=== PATIENT | male | born 1955 | race Caucasian/White ===

== ENCOUNTER 2017-08-23 23:28 | Observation (INO) | payer BC ==
[2017-08-23] MEDS ORDERED: ALBUTEROL NEBULIZED 2.5 MG/3 ML INHALATION STA (23:57)
[2017-08-23] MEDS ORDERED: SODIUM CHLORIDE 0.9% 1,000 ML IV STA (23:57)
--- NOTE | 2017-08-24 00:13 | ED ---
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 Hurts when he takes a deep breath he is ex-smoker quit smoking 12 years ago pretty active and healthy. Eyes any headaches no neck stiffness has shortness of breath no abdominal pain no frequency urgency dysuria no symptoms of TIA or CVA - Related Data Allergies Allergy/AdvReac Type Severity Reaction Status Date / Time No Known Allergies Allergy Verified 08/23/17 23:39 Review of Systems ROS Statement: Those systems with pertinent positive or pertinent negative responses have been documented in the HPI. ROS Other: All systems not noted in ROS Statement are negative. Past Medical History Past Medical History: No Reported History History of Any Multi-Drug Resistant Organisms: None Reported Past Surgical History: No Surgical Hx Reported Past Psychological History: No Psychological Hx Reported Smoking Status: Never smoker Past Alcohol Use History: Occasional Past Drug Use History: Marijuana General Exam - General Exam Comments Initial Comments: General: The patient is awake and alert, in no distress, and does not appear acutely ill. Skin: Skin is warm and dry and no rashes or lesions are noted. Eye: Pupils are equal, round and reactive to light, extra-ocular movements are intact; there is normal conjunctiva bilaterally. Ears, nose, mouth and throat: Noticed some erythema in the oropharynx Neck: The neck is supple, there is no tenderness o Cardiovascular: There is a regular rate and rhythm. No murmur, rub or gallop is appreciated. Respiratory: To auscultation bilateral, noticed some secretions in the right lower lobe Gastrointestinal: Soft, non-distended, non-tender abdomen without masses or organomegaly noted. There is no rebound or guarding present. Bowel sounds are unremarkable. Back: There is no tenderness to palpation in the midline. There is no obvious deformity. Musculoskeletal: Normal ROM, no tenderness, There is no pedal edema. There is no calf tenderness or swelling. No cords were appreciated. Neurological: CN II-XII intact, Cranial nerves III through XII are intact. There are no obvious motor or sensory deficits. Coordination appears grossly intact. Speech is normal. Psychiatric: Cooperative, appropriate mood & affect, normal judgment. Limitations: no limitations Course Vital Signs 08/23/17 08/24/17 23:39 00:31 Temperature 97.3 F L Pulse Rate 81 76 Respiratory 20 Rate Blood Pressure 148/85 O2 Sat by Pulse 95 Oximetry EKG is normal sinus rhythm ventricular rate is 83 WI interval is 162 QRS duration is 148 QT/QTC 392/460 did notice a left bundle branch block I don't have any old EKG to compare with, she was reassessed at 1 AM, chest x-ray is compatible with a pneumonia noticed his O2 sat didn't cranial low and I am EKG has left bundle branch block I don't know if is new or if this is an old be getting repeat his vitals and afebrile his O2 sat is low and then we'll admit him for the IV antibiotics and now consult cardiology, noticed that his O2 sat is low at rest, is 91 considering left bundle branch block and hypoxia and pneumonia and COPD and can admit him and will consult cardiology he be admitted to Dr. Mccullough's service Medical Decision Making - Lab Data Result diagrams: 08/24/17 00:20 08/24/17 00:20 Lab Results 08/24/17 08/24/17 08/24/17 Range/Units 00:20 00:20 00:20 WBC 4.1 (3.8-10.6) k/uL RBC 5.50 (4.30-5.90) m/uL Hgb 17.0 (13.0-17.5) gm/dL Hct 48.9 (39.0-53.0) % MCV 88.9 (80.0-100.0) fL MCH 30.9 (25.0-35.0) pg MCHC 34.7 (31.0-37.0) g/dL RDW 13.7 (11.5-15.5) % Plt Count 168 (150-450) k/uL Neutrophils % 50 % Lymphocytes % 39 % Monocytes % 6 % Eosinophils % 2 % Basophils % 1 % Neutrophils # 2.0 (1.3-7.7) k/uL Lymphocytes # 1.6 (1.0-4.8) k/uL Monocytes # 0.3 (0-1.0) k/uL Eosinophils # 0.1 (0-0.7) k/uL Basophils # 0.0 (0-0.2) k/uL PT (9.0-12.0) sec INR (<1.2) APTT (22.0-30.0) sec D-Dimer (<0.60) mg/L FEU Sodium 140 (137-145) mmol/L Potassium 4.0 (3.5-5.1) mmol/L Chloride 107 (98-107) mmol/L Carbon Dioxide 23 (22-30) mmol/L Anion Gap 10 mmol/L BUN 22 H (9-20) mg/dL Creatinine 0.90 (0.66-1.25) mg/dL Est GFR (CKD-EPI)AfAm >90 (>60 ml/min/1.73 sqM) Est GFR (CKD-EPI)NonAf >90 (>60 ml/min/1.73 sqM) Glucose 142 H (74-99) mg/dL Calcium 9.2 (8.4-10.2) mg/dL Total Bilirubin 0.5 (0.2-1.3) mg/dL AST 28 (17-59) U/L ALT 31 (21-72) U/L Alkaline Phosphatase 71 (38-126) U/L Total Creatine Kinase 280 H (55-170) U/L Total Protein 6.6 (6.3-8.2) g/dL Albumin 4.0 (3.5-5.0) g/dL 08/24/17 Range/Units 00:20 WBC (3.8-10.6) k/uL RBC (4.30-5.90) m/uL Hgb (13.0-17.5) gm/dL Hct (39.0-53.0) % MCV (80.0-100.0) fL MCH (25.0-35.0) pg MCHC (31.0-37.0) g/dL RDW (11.5-15.5) % Plt Count (150-450) k/uL Neutrophils % % Lymphocytes % % Monocytes % % Eosinophils % % Basophils % % Neutrophils # (1.3-7.7) k/uL Lymphocytes # (1.0-4.8) k/uL Monocytes # (0-1.0) k/uL Eosinophils # (0-0.7) k/uL Basophils # (0-0.2) k/uL PT 10.3 (9.0-12.0) sec INR 1.1 (<1.2) APTT 23.1 (22.0-30.0) sec D-Dimer 0.39 (<0.60) mg/L FEU Sodium (137-145) mmol/L Potassium (3.5-5.1) mmol/L Chloride (98-107) mmol/L Carbon Dioxide (22-30) mmol/L Anion Gap mmol/L BUN (9-20) mg/dL Creatinine (0.66-1.25) mg/dL Est GFR (CKD-EPI)AfAm (>60 ml/min/1.73 sqM) Est GFR (CKD-EPI)NonAf (>60 ml/min/1.73 sqM) Glucose (74-99) mg/dL Calcium (8.4-10.2) mg/dL Total Bilirubin (0.2-1.3) mg/dL AST (17-59) U/L ALT (21-72) U/L Alkaline Phosphatase (38-126) U/L Total Creatine Kinase (55-170) U/L Total Protein (6.3-8.2) g/dL Albumin (3.5-5.0) g/dL Disposition Clinical Impression: Hemoptysis, Dyspnea, Left bundle branch block, Pneumonia Disposition: ADMITTED IP TO THIS [facility] Referrals: Huseyin Amato MD [Primary Care Provider] - 1-2 days
[2017-08-24 00:28] LABS: Basophils % (A) 1 %; Eosinophils # (A) 0.1 k/uL (0-0.7); Eosinophils % (A) 2 %; HCT 48.9 % (39.0-53.0); Lymphocytes # (A) 1.6 k/uL (1.0-4.8); Lymphocytes % (A) 39 %; MCH 30.9 pg (25.0-35.0); MCHC 34.7 g/dL (31.0-37.0); MCV 88.9 fL (80.0-100.0); Mean Platelet Volume 6.8; Monocytes # (A) 0.3 k/uL (0-1.0); Monocytes % (A) 6 %; Neutrophils % (A) 50 %; Platelet Count 168 k/uL (150-450); RDW 13.7 % (11.5-15.5); WBC 4.1 k/uL (3.8-10.6)
--- NOTE | 2017-08-24 00:33 | XR ---
EXAMINATION TYPE: XR chest 2V DATE OF EXAM: 08/24/2017 COMPARISON: 04/25/2011 HISTORY: Difficulty breathing TECHNIQUE: Frontal and lateral views of the chest are obtained. FINDINGS: Heart and mediastinum are normal. . Diaphragm is normal. Bony thorax is normal. There is slight increased density overall in the right midlung field compared to the left. I think th is is related to some pneumonia in the right upper lobe anterior segment. There are chest leads. IMPRESSION: There is evidence for a mild diffuse pneumonia in the right upper lobe that is new nash red to old exam.
[2017-08-24 00:37] LABS: ALT 31 U/L (21-72); AST 28 U/L (17-59); Alkaline Phosphatase 71 U/L (38-126); Anion Gap 10 mmol/L; Blood Urea Nitrogen 22 mg/dL (9-20); Calcium 9.2 mg/dL (8.4-10.2); Carbon Dioxide 23 mmol/L (22-30); Chloride 107 mmol/L (98-107); Glucose 142 mg/dL (74-99); Sodium 140 mmol/L (137-145); Total Bilirubin 0.5 mg/dL (0.2-1.3); Total Protein 6.6 g/dL (6.3-8.2)
[2017-08-24 00:38] LABS: D-Dimer 0.39 mg/L FEU (<0.60)
[2017-08-24 00:40] LABS: Creatine Kinase 280 U/L (55-170)
[2017-08-24 00:42] LABS: INR 1.1 (<1.2); Partial Thromboplastin Time 23.1 sec (22.0-30.0); Prothrombin Time 10.3 sec (9.0-12.0)
[2017-08-24] MEDS ORDERED: AZITHROMYCIN 500 MG TAB PO STA (00:52)
[2017-08-24 00:53] LABS: Troponin I <0.012 ng/mL (0.000-0.034)
[2017-08-24 00:56] LABS: Creatine Kinase MB 2.6 ng/mL (0.0-2.4)
[2017-08-24] MEDS ORDERED: cefTRIAXone IN SWFI 2,000 MG/20 ML SYRINGE IVP ONE (01:15)
[2017-08-24] MEDS ORDERED: MORPHINE SULFATE 2 MG/ML SYRINGE IVP PRN (01:37)
[2017-08-24] MEDS ORDERED: NITROGLYCERIN SL TABS 0.4 MG TAB SUBLINGUAL PRN (01:37)
[2017-08-24 03:12] VITALS: BMI 26.0
[2017-08-24 06:35] LABS: Glucose,Whole Blood 119 mg/dL (75-99)
[2017-08-24 07:47] LABS: Creatine Kinase 174 U/L (55-170)
[2017-08-24 08:00] LABS: Creatine Kinase MB 1.8 ng/mL (0.0-2.4); Troponin I <0.012 ng/mL (0.000-0.034)
[2017-08-24 12:01] LABS: Glucose,Whole Blood 129 mg/dL (75-99)
[2017-08-24] MEDS ORDERED: ALPRAZolam 0.25 MG TAB PO PRN (12:49)
[2017-08-24] MEDS ORDERED: SODIUM CHLORIDE 0.9% 1,000 ML in EMPTY BAG 1 BAG IV ONE (12:49)
[2017-08-24] MEDS ORDERED: ALPRAZolam 0.5 MG TAB PO PRN (12:49)
--- NOTE | 2017-08-24 12:58 | P.CRDCN ---
History of Present Illness Consult date: 08/24/17 History of present illness: Mr. Haines is a pleasant 61-year-old male past medical history significant for diabetes mellitus, hypertension and dyslipidemia. He recently started seeing Dr. Funes 2 weeks ago for symptoms of palpitations and an abnormal EKG. He has a left bundle branch pattern that seems to be new in the last month. Although he states he has never had an EKG before that time. We have been asked to see him in consultation for complaints of dyspnea on exertion yesterday. He states after work he was playing basketball and he started feeling extremely short of breath. He denies symptoms of chest pain, dizziness, palpitations, nausea, vomiting or diaphoresis. The shortness of breath persisted until he came to the hospital and was given a breathing treatment. He denies any further symptoms of shortness of breath since admission. Telemetry tracings have been unremarkable. EKG reveals left bundle branch block. Chest xray reveals evidence of mild diffuse pneumonia in the right upper lobe. Laboratory data reviewed, hemoglobin 17, platelets 168, d-dimer 0.39, potassium 4.0, creatinine 0.9, cardiac enzymes negative 2. Current cardiac medications include simvastatin 80 mg daily, lisinopril 10 mg daily and aspirin 81 mg daily. Review of Systems At the time my exam: CONSTITUTIONAL: Denies fever. Denies chills. EYES: Denies blurred vision. Denies vision changes. Denies eye pain. EARS, NOSE, MOUTH & THROAT: Denies headache. Denies sore throat. Denies ear pain. CARDIOVASCULAR: Denies chest pain. Denies shortness of breath. Denies orthopnea. Denies PND. Denies palpitations. RESPIRATORY: Denies cough. GASTROINTESTINAL: Denies abdominal pain. Denies diarrhea. Denies constipation. Denies nausea. Denies vomiting. MUSCULOSKELETAL: Denies myalgias. INTEGUMENTARY: Denies pruitis. Denies rash. NEUROLOGIC: Denies numbness. Denies tingling. Denies weakness. PSYCHIATRIC: Denies anxiety. Denies depression. ENDOCRINE: Denies fatigue. Denies weight change. Denies polydipsia. Denies polyurina. GENITOURINARY: Denies burning, hematuria or urgency with micturation. HEMATOLOGIC: Denies history of anemia. Denies bleeding. Past Medical History Past Medical History: Diabetes Mellitus, Hyperlipidemia, Hypertension Additional Past Medical History / Comment(s): chronic neck pain with "head tremors" History of Any Multi-Drug Resistant Organisms: None Reported Past Surgical History: No Surgical Hx Reported Additional Past Surgical History / Comment(s): throat lesions from HPV removed, pilonidal cyst removed Past Anesthesia/Blood Transfusion Reactions: No Reported Reaction Past Psychological History: Anxiety Smoking Status: Never smoker Past Alcohol Use History: Occasional Past Drug Use History: Marijuana - Past Family History Father Family Medical History: Diabetes Mellitus Medications and Allergies Home Medications Medication Instructions Recorded Confirmed Type Aspirin [Adult Low Dose Aspirin EC] 81 mg PO DAILY 08/24/17 08/24/17 History Dapagliflozin Propanediol [Farxiga] 10 mg PO DAILY 08/24/17 08/24/17 History Ibuprofen [Motrin] 800 mg PO BID PRN 08/24/17 08/24/17 History Lisinopril [Zestril] 10 mg PO DAILY 08/24/17 08/24/17 History Multivitamin [Men's Multi-Vitamin] 1 tab PO DAILY 08/24/17 08/24/17 [address] [place]-3 Fatty Acids/Fish Oil [Fish 1 cap PO DAILY 08/24/17 08/24/17 History Oil 1,000 mg Softgel] Omeprazole [PriLOSEC] 20 mg PO AC-BRKFST PRN 08/24/17 08/24/17 History Simvastatin 80 mg PO DAILY 08/24/17 08/24/17 History glipiZIDE [Glucotrol] 10 mg PO DAILY 08/24/17 08/24/17 History metFORMIN HCL ER [Glucophage Xr] 500 mg PO BID 08/24/17 08/24/17 History Allergies Allergy/AdvReac Type Severity Reaction Status Date / Time liraglutide [From Victoza] AdvReac Nausea & Verified 08/24/17 03:38 Vomiting Physical Exam Vitals: Vital Signs Temp Pulse Pulse Resp BP BP Pulse Ox 08/24/17 07:51 97.9 F 83 16 94/47 96 08/24/17 03:43 76 16 08/24/17 03:37 97.6 F 88 16 112/63 94 L 08/24/17 00:52 75 08/24/17 00:31 76 08/23/17 23:39 97.3 F L 81 20 148/85 95 Intake and Output 08/23/17 08/24/17 08/24/17 22:59 06:59 14:59 Other: Voiding Method Toilet # Voids 2 Weight 84.8 kg Blood pressure 94/47 heart rate 83 afebrile maintaining oxygen saturation on room air GENERAL: This is a 61-year-old male in no apparent distress at the time of my examination. HEENT: Head is atraumatic, normocephalic. Pupils are equal, round. Sclerae anicteric. Conjunctivae are clear. Mucous membranes of the mouth are moist. Neck is supple. There is no jugular venous distention. No carotid bruit is heard. LUNGS: Clear to auscultation no wheezes, rales or rhonchi. No chest wall tenderness is noted on palpation or with deep breathing. HEART: Regular rate and rhythm with systolic ejection murmur at the base, no rubs or gallops. S1 and S2 heard. ABDOMEN: Soft, nontender. Bowel sounds are heard. No organomegaly noted. EXTREMITIES: No evidence of peripheral edema and no calf tenderness noted. VASCULAR: Radial and dorsalis pedis pulses palpated, no evidence of clubbing. NEUROLOGIC: Patient is awake, alert and oriented x3. Results 08/24/17 00:20 08/24/17 00:20 Cardiac Enzymes 08/24/17 08/24/17 Range/Units 00:20 00:20 AST 28 (17-59) U/L CK-MB (CK-2) 2.6 H* (0.0-2.4) ng/mL Troponin I <0.012 (0.000-0.034) ng/mL Coagulation 08/24/17 Range/Units 00:20 PT 10.3 (9.0-12.0) sec APTT 23.1 (22.0-30.0) sec CBC 08/24/17 Range/Units 00:20 WBC 4.1 (3.8-10.6) k/uL RBC 5.50 (4.30-5.90) m/uL Hgb 17.0 (13.0-17.5) gm/dL Hct 48.9 (39.0-53.0) % Plt Count 168 (150-450) k/uL Comprehensive Metabolic Panel 08/24/17 Range/Units 00:20 Sodium 140 (137-145) mmol/L Potassium 4.0 (3.5-5.1) mmol/L Chloride 107 (98-107) mmol/L Carbon Dioxide 23 (22-30) mmol/L BUN 22 H (9-20) mg/dL Creatinine 0.90 (0.66-1.25) mg/dL Glucose 142 H (74-99) mg/dL Calcium 9.2 (8.4-10.2) mg/dL AST 28 (17-59) U/L ALT 31 (21-72) U/L Alkaline Phosphatase 71 (38-126) U/L Total Protein 6.6 (6.3-8.2) g/dL Albumin 4.0 (3.5-5.0) g/dL Current Medications Generic Name Dose Route Start Last Admin Trade Name Freq PRN Reason Stop Dose Admin Aspirin 325 mg 08/25/17 09:00 Aspirin PO DAILY FLORENCE Ceftriaxone Sodium 2,000 mg 08/24/17 21:00 Rocephin IVP HS [place] Sodium Chloride 1,000 mls @ 100 mls/hr 08/23/17 23:57 08/24/17 00:17 Saline 0.9% IV 08/24/17 09:56 100 mls/hr .Q10H STA Administration Morphine Sulfate 2 mg 08/24/17 01:37 08/24/17 03:18 Morphine Sulfate (Inj) IVP 2 mg Q5M PRN Administration Chest Pain Nitroglycerin 0.4 mg 08/24/17 01:37 Nitrostat SUBLINGUAL Q5M PRN Chest Pain Intake and Output 08/23/17 08/24/17 08/24/17 22:59 06:59 14:59 Other: Voiding Method Toilet # Voids 2 Weight 84.8 kg 08/24/17 00:20 08/24/17 00:20 Assessment and Plan Assessment: ASSESSMENT 1. Dyspnea on exertion with improvement after breathing treatment 2. Palpitations, telemetry tracings have been unremarkable. 3. Hypertension 4. Dyslipidemia 5. Diabetes mellitus PLAN Check proBNP. Obtain 2D echocardiogram and doppler study to assess cardiac structure and function. Further recommendations to follow based on clinical course and diagnostic findings. Nurse Practitioner note has been reviewed, I agree with a documented findings and plan of care. Patient was seen and examined.
[2017-08-24 13:06] LABS: Creatine Kinase 161 U/L (55-170)
[2017-08-24 13:19] LABS: Creatine Kinase MB 1.6 ng/mL (0.0-2.4); Troponin I <0.012 ng/mL (0.000-0.034)
--- NOTE | 2017-08-24 13:19 | ECHOF ---
Referral Reason:sob MEASUREMENTS -------- HEIGHT: 182.9 cm WEIGHT: 84.4 kg BP: 112/63 IVSd: 1.0 cm (0.6 - 1.1) LVIDd: 4.4 cm (3.9 - 5.3) LVPWd: 1.3 cm (0.6 - 1.1) IVSs: 1.4 cm LVIDs: 3.3 cm LVPWs: 1.8 cm LAESV Index (A-L): 17.06 ml/m Ao Diam: 3.1 cm (2.0 - 3.7) AV Cusp: 2.2 cm (1.5 - 2.6) LA Diam: 3.1 cm (2.7 - 3.8) MV EXCURSION: 18.048 mm (> 18.000) MV EF SLOPE: 85 mm/s (70 - 150) EPSS: 1.7 cm MV E Cali: 0.70 m/s MV DecT: 190 ms MV A Cali: 0.93 m/s MV E/A Ratio: 0.75 RAP: 5.00 mmHg RVSP: 17.74 mmHg FINDINGS -------- BBB This was a technically good study. The left ventricular size is normal. There is borderline concentric left ventricular hypertrophy. Overall left ventricular systolic function is moderate-severely impaired with, an EF between 30 - 35 %. Septum is dyskinetic. There seemed to be hypokinesia of the anterior wall and also lateral wal l compared to the inferior wall, suggestive of ischemic cardiomyopathy The right ventricle is normal in size and function. The left atrium is normal in size. The right atrium is normal in size. The aortic valve is trileaflet, and appears structurally normal. No aortic stenosis or regurgitation. Mild mitral regurgitation is present. Mild tricuspid regurgitation present. The right ventricular systolic pressure, as measured by Doppl er, is 17.74mmHg. Pulmonic valve appears structurally normal. The aortic root size is normal. The pericardium is normal. CONCLUSIONS -------- 1. BBB 2. This was a technically good study. 3. The left ventricular size is normal. 4. There is borderline concentric left ventricular hypertrophy. 5. Septum is dyskinetic 6. seemed to be hypokinesia of the anterior wall and also lateral wall compared to the inferior wall, suggestive of ischemic cardiomyopathy 7. The right ventricle is normal in size and function. 8. The left atrium is normal in size. 9. The right atrium is normal in size. 10. The aortic valve is trileaflet, and appears structurally normal. No aortic stenosis or regurgitat ion. 11. Mild mitral regurgitation is present. 12. Mild tricuspid regurgitation present. 13. The right ventricular systolic pressure, as measured by Doppler, is 17.74mmHg. 14. Pulmonic valve appears structurally normal. 15. The aortic root size is normal. 16. The pericardium is normal. COURT USHER: Maggie Cordoba RDCS
[2017-08-24 13:35] LABS: Hemoglobin A1C 8.3 % (4.0-6.0)
[2017-08-24] MEDS ORDERED: IBUPROFEN 800 MG TAB PO PRN (13:43)
[2017-08-24] MEDS ORDERED: PANTOPRAZOLE 40 MG TABLET PO PRN (13:47)
[2017-08-24] MEDS: ASPIRIN 81 MG PO SCH (13:57)
[2017-08-24] MEDS: ATORVASTATIN 40 MG TAB PO SCH (13:57)
[2017-08-24] MEDS: LISINOPRIL 10 MG TAB PO SCH (13:57)
[2017-08-24] MEDS ORDERED: LORazepam 0.5 MG TAB PO PRN (14:24)
[2017-08-24] MEDS ORDERED: ACETAMINOPHEN TAB 325 MG TAB PO PRN (14:24)
[2017-08-24] MEDS ORDERED: LACTULOSE 20 GM/30 ML CUP PO PRN (14:24)
[2017-08-24] MEDS ORDERED: NALOXONE 0.4 MG/ML 1 ML VIAL IV PRN (14:24)
[2017-08-24] MEDS ORDERED: MELATONIN 3 MG TABLET PO PRN (14:24)
[2017-08-24] MEDS ORDERED: CALCIUM CARBONATE 500 MG CHEWABLE PO PRN (14:24)
[2017-08-24] MEDS ORDERED: Acetaminophen-Codeine 300-30mg TAB PO PRN (14:24)
[2017-08-24] MEDS ORDERED: MAGNESIUM HYDROXIDE 2,400 MG/10 ML CUP PO PRN (14:24)
[2017-08-24] MEDS ORDERED: ONDANSETRON 4 MG/2 ML VIAL IVP PRN (14:24)
--- NOTE | 2017-08-24 15:15 | HP ---
HISTORY AND PHYSICAL DATE OF ADMISSION: 08/24/17 PRESENT COMPLAINT: Cough, short of breath. HISTORY OF PRESENTING COMPLAINT: This is a very pleasant 61-year-old patient Dr. Amato. Chronic stable medical conditions include diabetes, hypertension, hyperlipidemia, osteoarthritis of the hands. The patient has got chronic neck pain from head tremors. The patient presents with 1 day of worsening cough, difficulty breathing, sweating with some sputum some blood tinged, tired, run down. The patient is found to have infiltrate on x-ray. Started on antibiotics. Feeling a little bit better since admission. Tired and run down. REVIEW OF SYSTEMS: CONSTITUTIONAL: Tired. HEENT: None. RESPIRATORY: As above. CARDIOVASCULAR: None. GASTROINTESTINAL: None. GENITOURINARY: None. MUSCULOSKELETAL: Arthritic pain especially in the hands with some neck pain. DERMATOLOGICAL, HEMATOLOGIC, LYMPHATIC: None. PSYCHIATRY: None. NEUROLOGICAL: None. PAST HISTORY: Diabetes, hypertension, hyperlipidemia, chronic neck pain from head tremors. PAST SURGICAL HISTORY: Throat lesions from HPV removed, pilonidal cyst removed. SOCIAL HISTORY: Patient smoked a pack a day for 30 years, stopped about 12 years ago. 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 . FAMILY HISTORY: Diabetes. HOME MEDICATIONS: 1. Glucophage XR 500 mg b.i.d. 2. Glucotrol 10 mg p.o. daily. 3. Simvastatin 80 mg p.o. daily. 4. Prilosec 20 mg breakfast p.r.n. 5. Fish oil 1000 mg 1 capsule p.o. daily. 6. Men's multivitamin 1 tab p.o. daily. 7. Zestril 10 mg p.o. daily. 8. Motrin 800 mg p.o. b.i.d. p.r.n.. 9. Farxiga 10 mg p.o. daily. 10.Aspirin 81 mg p.o. daily. ALLERGY: VICTOZA. PHYSICAL EXAMINATION: VITAL SIGNS ON PRESENTATION: Temperature 97.3, pulse 81, respiratory 20, blood pressure 140/85, pulse ox 95% on room air. GENERAL APPEARANCE: Sitting up, not in distress. EYES: Pupils equal. Conjunctivae normal. HEENT: External appearance of nose and ears normal. Oral cavity normal. NECK: JVD not raised. Mass not palpable. RESPIRATORY: Effort normal. Lungs, decreased breath sounds. Expiratory wheezing. CARDIOVASCULAR: First and second sounds normal. No edema. ABDOMEN: Soft, nontender. Liver and spleen not palpable. LYMPHATIC: No lymph node palpable in neck or axillae. PSYCHIATRY: Alert and oriented x3. Mood and affect normal. NEUROLOGICAL: Pupils equal. Cranial nerves grossly intact. Power and sensation grossly intact. MUSCULOSKELETAL: Evidence of osteoarthritis especially in the hands. INVESTIGATIONS: White count 4.1, hemoglobin 17.0 potassium 4, BUN 22, creatinine 0.90. Accu-Cheks noted. Troponin x2 negative. Influenza A and B negative. ProBNP 75. Chest x-ray shows infiltrate. ASSESSMENT: 1. Pneumonia suspect atypical pneumonia, present on admission. The patient is feeling somewhat better with antibiotic. 2. Chronic obstructive pulmonary disease in an ex-smoker. 3. Diabetes mellitus type 2 on oral hypoglycemic. 4. Essential hypertension. 5. Hyperlipidemia. 6. Primary osteoarthritis especially of the hands. PLAN: Patient is started on IV antibiotics, will be given breathing treatments. Care was discussed with the patient. Questions were answered. MMODL / IJN: [id number] /
[2017-08-24] MEDS: ENOXAPARIN 40 MG/0.4 ML SYRINGE SQ SCH ×2 (16:10→16:12)
[2017-08-24] MEDS: glipiZIDE 10 MG TAB PO SCH (16:10)
[2017-08-24 17:24] LABS: Glucose,Whole Blood 153 mg/dL (75-99)
[2017-08-24] MEDS: NON-FORMULARY DRUG (Dapagliflozin Propanediol [Farxiga] 10 MG) PO SCH (17:53)
[2017-08-24] MEDS: metFORMIN 500 MG TAB PO SCH (17:53)
[2017-08-24] MEDS: IPRATROPIUM-ALBUTEROL 3 ML NEB INHALATION SCH ×2 (20:24→20:34)
[2017-08-24 20:58] LABS: Glucose,Whole Blood 90 mg/dL (75-99)
[2017-08-24] MEDS ORDERED: AZITHROMYCIN 500 MG TAB PO SCH (21:00)
[2017-08-24] MEDS ORDERED: cefTRIAXone IN SWFI 1,000 MG/10 ML SYRINGE IVP SCH (21:00)
[2017-08-24] MEDS ORDERED: cefTRIAXone IN SWFI 2,000 MG/20 ML SYRINGE IVP SCH (21:00)
[2017-08-25] MEDS: metFORMIN 500 MG TAB PO SCH (06:07)
[2017-08-25] MEDS: glipiZIDE 10 MG TAB PO SCH (06:28)
[2017-08-25] MEDS: LISINOPRIL 10 MG TAB PO SCH (06:28)
[2017-08-25] MEDS: ATORVASTATIN 40 MG TAB PO SCH (06:28)
[2017-08-25] MEDS: ENOXAPARIN 40 MG/0.4 ML SYRINGE SQ SCH (06:28)
[2017-08-25] MEDS: ASPIRIN 81 MG PO SCH (06:28)
[2017-08-25] MEDS: NON-FORMULARY DRUG (Dapagliflozin Propanediol [Farxiga] 10 MG) PO SCH (06:28)
[2017-08-25 06:55] LABS: Glucose,Whole Blood 137 mg/dL (75-99)
[2017-08-25 07:33] LABS: Basophils % (A) 0 %; Eosinophils # (A) 0.1 k/uL (0-0.7); Eosinophils % (A) 2 %; HCT 43.6 % (39.0-53.0); HGB 14.9 gm/dL (13.0-17.5); Lymphocytes # (A) 1.3 k/uL (1.0-4.8); Lymphocytes % (A) 34 %; MCH 30.2 pg (25.0-35.0); MCHC 34.2 g/dL (31.0-37.0); MCV 88.3 fL (80.0-100.0); Mean Platelet Volume 6.9; Monocytes # (A) 0.3 k/uL (0-1.0); Monocytes % (A) 6 %; Neutrophils # (A) 2.1 k/uL (1.3-7.7); Neutrophils % (A) 54 %; Platelet Count 134 k/uL (150-450); RBC 4.94 m/uL (4.30-5.90); RDW 13.8 % (11.5-15.5); WBC 3.9 k/uL (3.8-10.6)
[2017-08-25 08:04] LABS: Anion Gap 7 mmol/L; Blood Urea Nitrogen 22 mg/dL (9-20); Calcium 8.8 mg/dL (8.4-10.2); Carbon Dioxide 25 mmol/L (22-30); Chloride 107 mmol/L (98-107); Cholesterol 141 mg/dL (<200); Glucose 156 mg/dL (74-99); HDL Cholesterol 38 mg/dL (40-60); LDL Cholesterol,Calculated 86 mg/dL (0-99); Potassium 5.1 mmol/L (3.5-5.1); Sodium 139 mmol/L (137-145); Triglycerides 84 mg/dL (<150)
[2017-08-25] MEDS ORDERED: ASPIRIN 325 MG TAB PO SCH (09:00)
[2017-08-25] MEDS: IPRATROPIUM-ALBUTEROL 3 ML NEB INHALATION SCH ×3 (09:08→15:10)
[2017-08-25] MEDS ORDERED: IV FLUID CONTINUATION 1,000 ML IV ONE (10:10)
[2017-08-25] MEDS ORDERED: SODIUM CHLORIDE 0.9% 1,000 ML IV ONE (10:12)
[2017-08-25] MEDS ORDERED: HEPARIN SODIUM 1,000 UN/ML (10ML VL) ONE (10:15)
[2017-08-25] MEDS ORDERED: LIDOCAINE 2% INJ 20 MG/ML (20 ML MDV) ONE (10:15)
[2017-08-25] MEDS ORDERED: fentaNYL (PF) 50 MCG/ML 2 ML AMP ONE (10:15)
[2017-08-25] MEDS ORDERED: MIDAZOLAM 2 MG/2 ML VIAL ONE (10:15)
[2017-08-25] MEDS ORDERED: VERAPAMIL 2.5 MG/ML 2 ML AMP ONE (10:16)
[2017-08-25] MEDS ORDERED: MIDAZOLAM 2 MG/2 ML VIAL IVP ONE (10:31)
[2017-08-25] MEDS ORDERED: fentaNYL (PF) 50 MCG/ML 2 ML AMP IVP ONE (10:31)
[2017-08-25] MEDS ORDERED: LIDOCAINE 2% INJ 20 MG/ML SQ ONE (10:44)
[2017-08-25] MEDS ORDERED: VERAPAMIL SYRINGE (5 MG/10 ML) INTRAARTER ONE (10:47)
[2017-08-25] MEDS ORDERED: HEPARIN SODIUM 1,000 UN/ML (10ML VL) IV ONE (10:49)
[2017-08-25] MEDS ORDERED: IOHEXOL 350 MG/ML 125ML BOTTLE INJ ONE (11:07)
[2017-08-25] MEDS ORDERED: RX INFO: IV CONTRAST WAS GIVEN 1 EACH MISC MISCELLANE PRN (11:15)
[2017-08-25] MEDS ORDERED: SODIUM CHLORIDE 0.9% 1,000 ML IV SCH (11:15)
--- NOTE | 2017-08-25 11:26 | P.PCN ---
Date of Procedure: 08/25/17 Preoperative Diagnosis: Cardiomyopathy, shortness of breath. Rule out coronary artery disease Postoperative Diagnosis: Minimal coronary artery disease. Cardiomyopathy with hypokinesis of the anteroapical segment with an ejection fraction about 35-40% Description of Procedure: HISTORY: This is a 61-year-old gentleman who was recently found to have new onset left bundle branch pattern. Patient is admitted to the hospital this time with complaints of exertional shortness of breath. His echocardiogram showed evidence of cardiomyopathy with ejection fraction about 35% with hypokinesia of the anterior and lateral cotto compared to the inferior wall. Septal showed disconnect moment related bundle branch block pattern. Patient is advised to have cardiac catheterization to rule out underlying ischemic heart disease. CONSENT:I have discussed the risks, benefits and alternative therapies for the above-mentioned procedure and for both sedation/analgesia as well as necessary blood product administration, if indicated, as they pertain to this patient. The patient has indicated understanding and acceptance of the risks and procedures discussed. PROCEDURE: Patient was brought to the lab in a fasting state. Patient was given some IV sedation. The right groin is infiltrated with lidocaine and right femoral artery was entered using Seldinger technique. A 6-Omani catheter was left in place and selective coronary arteriography and left ventriculography was performed. Patient tolerated the procedure well. Femoral angiogram was performed and Angio-Seal was applied for hemostasis. No immediate complications were noted and patient was transferred to [facility] in a stable condition Conscious Sedation: Versed 1mg Fentanyl 50 g Duration 30 minutes HEMODYNAMICS:. The aortic pressure is about 130/70. Left ankle end-diastolic pressure was 16. There was no gradient across the aortic valve SELECTIVE CORONARY ARTERIOGRAPHY: LEFT MAIN: Normal length and patent THE LEFT ANTERIOR DESCENDING CORONARY ARTERY:. There is calcification noted both in the left main and the left anterior descending. The left anterior descending coronary artery is a moderate caliber vessel giving rise to 3 diagonal branches. Has mild diffuse plaque in the proximal portion without any focal Sigmund occlusive disease THE LEFT CIRCUMFLEX AND IS CORONARY ARTERY:. This is a good caliber vessel, again showing mild calcification the proximal portion. It gives rise to 2 OM branches. The circumflex coronary artery and branches are free of occlusive disease THE RIGHT CORONARY ARTERY:. This is a moderate caliber vessel. Seems to be nondominant. Mild plaque in the midportion without any significant focal lesions LEFT VENTRICULOGRAPHY: Revealed mildly enlarged left ventricle with hypokinesis of the anteroapical segment. Overall left ankle function appeared moderately impaired with ejection fraction around 40% FINAL IMPRESSION:. Nonischemic cardiomyopathy. Mild diffuse coronary artery disease PLAN: Maximum medical therapy PROGNOSIS:. Fair
[2017-08-25] MEDS ORDERED: SPIRONOLACTONE 25 MG TAB PO SCH (11:30)
[2017-08-25 11:53] VITALS: RESP 16; TEMP 97.5
[2017-08-25 12:03] LABS: Glucose,Whole Blood 115 mg/dL (75-99)
[2017-08-25] MEDS ORDERED: METOPROLOL TARTRATE 12.5 MG TAB PO SCH (13:10)
[2017-08-25] MEDS ORDERED: MORPHINE ORAL SOLN 10 MG/5 ML CUP PO PRN (13:42)
[2017-08-25 14:19] VITALS: BP 112/65; PULSE 75
--- NOTE | 2017-08-25 17:01 | DS ---
DISCHARGE SUMMARY DATE OF ADMISSION: 08/24/2017. DATE OF DISCHARGE: 08/25/2017 FINAL DIAGNOSES: 1. Pneumonia from atypical organism, present on admission. 2. Chronic obstructive pulmonary disease in an ex-smoker. 3. Diabetes mellitus, type 2, on oral hypoglycemic. 4. Essential hypertension. 5. Hyperlipidemia. 6. Primary osteoarthritis, especially of the hands. 7. Nonischemic cardiomyopathy with ejection fraction 40%. PROCEDURE: Cardiac catheterization. HOSPITAL COURSE: This patient presented with pneumonia felt to be atypical. Influenza was negative. Pulmonary symptoms are much improved. Seen by Cardiology, who did a cardiac catheterization. EF came back to be 40%. Otherwise the catheterization showed minimal coronary artery disease, if any. PHYSICAL EXAMINATION: LUNGS: Improved air entry. CARDIOVASCULAR: First and second sounds normal. Care was discussed with the patient and his . DISCHARGE MEDICATIONS: 1. Aspirin 81 mg p.o. daily. 2. Farxiga 10 mg p.o. daily. 3. Motrin 800 mg p.o. b.i.d. p.r.n. 4. Zestril 10 mg p.o. daily. 5. Men's multivitamin 1 tablet p.o. daily. 6. Fish oil 1000 mg p.o. daily. 7. Prilosec 20 mg p.o. with breakfast. 8. Glucotrol 10 mg p.o. daily. 9. Glucophage XR 500 mg p.o. b.i.d. 10.Zithromax 500 mg p.o. at bedtime; 5 tablets. 11.Lopressor 12.5 p.o. b.i.d. 12.Nitrostat 0.4 sublingually q.5 p.r.n. 13.Simvastatin 40 mg p.o. daily. 14.Aldactone 12.5 p.o. daily. Follow up with Dr. Amato in 1 week. Follow up with Dr. Funes in 1 week. BMP in 3 days. MMODL / IJN: [id number] /
== END 2017-08-25 17:10 | disposition home or self-care (01) ==
LOC: EC 23:28 → 3OBS 08-24 01:37
PROVIDERS: ADMIT Hospitalist; ATTEND Hospitalist
DX: J18.9 Pneumonia, unspecified organism (principal); J44.0 Chronic obstructive pulmonary disease with (acute) lower respiratory infection; E11.9 Type 2 diabetes mellitus without complications; I42.8 Other cardiomyopathies; I10 Essential (primary) hypertension; E78.5 Hyperlipidemia, unspecified; I44.7 Left bundle-branch block, unspecified; I25.10 Atherosclerotic heart disease of native coronary artery without angina pectoris; G89.29 Other chronic pain; R25.1 Tremor, unspecified; M54.2 Cervicalgia; M19.041 Primary osteoarthritis, right hand; M19.042 Primary osteoarthritis, left hand; F41.9 Anxiety disorder, unspecified; Z79.82 Long term (current) use of aspirin; Z79.84 Long term (current) use of oral hypoglycemic drugs; Z79.899 Other long term (current) drug therapy; Z88.8 Allergy status to other drugs, medicaments and biological substances; Z87.891 Personal history of nicotine dependence
CPT/HCPCS: 96361 ×4; 96374 ×2; 99285 ×2; 96375; 96376; 36415; 94640 ×2; 93005; 93306; 93458; 85379; 83880; 80061; 80053; 80048; 82550; 82553; 84484; 85025 ×2; 85610; 85730; 87502; 83036; 71046; 99152; G0378 ×2; C1769 ×3; C1894; J2001; J2250; J0696 ×2; J3010; J2270; J1644; Q9967

== ENCOUNTER 2018-02-19 14:21 | Emergency (ER) | payer BC ==
[2018-02-19 14:27] VITALS: RESP 18
[2018-02-19] MEDS ORDERED: SODIUM CHLORIDE 0.9% 1,000 ML IV STA (14:51)
--- NOTE | 2018-02-19 15:08 | ED ---
General Adult HPI - General Chief complaint: Shortness of Breath Stated complaint: Sob Time Seen by Provider: 02/19/18 14:33 Source: patient, RN notes reviewed Mode of arrival: ambulatory Limitations: no limitations - History of Present Illness Initial comments: 62-year-old male With a past medical history of hyperlipidemia, hypertension, and diabetes presents to the emergency department for chief complaint of shortness of breath 1 hour. Patient states he was moving boxes up and down the stairs when he became suddenly short of breath. He states he began a productive cough during this time. Patient admits to a past history of smoking but has not smoked in 13 years. Patient denies coughing before this episode. Patient denies any chest pain or chest pressure. At this time patient states his shortness of breath has improved significantly but he still feels like he cannot take a deep breath. Patient has no other complaints at this time including chest pain, abdominal pain, nausea or vomiting, headache, or visual changes. - Related Data Home Medications Medication Instructions Recorded Confirmed Aspirin [Adult Low Dose Aspirin EC] 81 mg PO DAILY 08/24/17 02/19/18 Ibuprofen [Motrin] 800 mg PO BID PRN 08/24/17 02/19/18 Lisinopril [Zestril] 10 mg PO DAILY 08/24/17 02/19/18 Multivitamin [Men's Multi-Vitamin] 1 tab PO DAILY 08/24/17 02/19/18 [place]-3 Fatty Acids/Fish Oil [Fish 1 cap PO DAILY 08/24/17 02/19/18 Oil 1,000 mg Softgel] Omeprazole [PriLOSEC] 20 mg PO AC-BRKFST PRN 08/24/17 02/19/18 glipiZIDE [Glucotrol] 10 mg PO DAILY 08/24/17 02/19/18 metFORMIN HCL ER [Glucophage Xr] 500 mg PO BID 08/24/17 02/19/18 Simvastatin 40 mg PO HS 02/19/18 02/19/18 Previous Rx's Medication Instructions Recorded Metoprolol Tartrate [Lopressor] 12.5 mg PO BID #60 tab 08/25/17 Nitroglycerin Sl Tabs [Nitrostat] 0.4 mg SUBLINGUAL Q5M PRN #25 tab 08/25/17 Spironolactone [Aldactone] 12.5 mg PO DAILY #30 tablet 08/25/17 Albuterol Inhaler [Ventolin Hfa 1 - 2 puff INHALATION Q6HR PRN #1 02/19/18 Inhaler] inhaler Azithromycin [Zithromax Z-pack] 250 mg PO DIRECTED #6 tab 02/19/18 predniSONE 50 mg PO DAILY #5 tablet 02/19/18 Allergies Allergy/AdvReac Type Severity Reaction Status Date / Time liraglutide [From Victoza] AdvReac Nausea & Verified 02/19/18 14:45 Vomiting/Weakness Review of Systems ROS Statement: Those systems with pertinent positive or pertinent negative responses have been documented in the HPI. ROS Other: All systems not noted in ROS Statement are negative. Past Medical History Past Medical History: Diabetes Mellitus, Hyperlipidemia, Hypertension Additional Past Medical History / Comment(s): chronic neck pain with "head tremors" History of Any Multi-Drug Resistant Organisms: None Reported Past Surgical History: No Surgical Hx Reported Additional Past Surgical History / Comment(s): throat lesions from HPV removed, pilonidal cyst removed Past Anesthesia/Blood Transfusion Reactions: No Reported Reaction Past Psychological History: Anxiety Smoking Status: Never smoker Past Alcohol Use History: Occasional Past Drug Use History: Marijuana - Past Family History Father Family Medical History: Diabetes Mellitus General Exam Limitations: no limitations General appearance: alert, in no apparent distress Head exam: Present: atraumatic, normocephalic, normal inspection Eye exam: Present: normal appearance. Absent: scleral icterus, conjunctival injection ENT exam: Present: normal exam, mucous membranes moist Neck exam: Present: normal inspection, full ROM. Absent: tenderness, meningismus, lymphadenopathy Respiratory exam: Present: normal lung sounds bilaterally. Absent: respiratory distress, wheezes, rales, rhonchi, stridor Cardiovascular Exam: Present: regular rate, normal rhythm, normal heart sounds. Absent: systolic murmur, diastolic murmur, rubs, gallop, clicks Neurological exam: Present: alert, oriented X3, CN II-XII intact Psychiatric exam: Present: normal affect, normal mood Course Vital Signs 02/19/18 02/19/18 14:24 15:59 Temperature 97.6 F Pulse Rate 96 Respiratory 18 18 Rate Blood Pressure 142/95 O2 Sat by Pulse 94 L Oximetry Medical Decision Making - Medical Decision Making 62-year-old male presents the emergency department for shortness of breath 1 hour. Patient states it is much improved on presentation to the ER. Patient states he had a negative heart cath 6 months ago but did have pneumonia at that time. Exam unremarkable, no significant wheezing noted. CBC and CMP and normal limits. Cardiac profile and troponin negative. Denies chest pain. Chest x -ray shows no evidence for acute pulmonary disease. Hyperinflation compatible with COPD. No evidence for infiltrate. D-dimer 1.05. CT shows no evidence of pulmonary embolism. Interstitial pulmonary infiltrates could relate to fibrosis. Given patient's productive cough and improvement of shortness of breath he is likely experiencing a COPD exacerbation. He will be given azithromycin, prednisone and albuterol. He will follow up with primary care in 1-2 days. He will return if he has any worsening symptoms increasing shortness of breath or fevers. - Lab Data Result diagrams: 02/19/18 15:17 02/19/18 15:17 Lab Results 02/19/18 02/19/18 02/19/18 Range/Units 15:17 15:17 15:17 WBC 4.9 (3.8-10.6) k/uL RBC 5.79 (4.30-5.90) m/uL Hgb 17.4 (13.0-17.5) gm/dL Hct 53.4 H (39.0-53.0) % MCV 92.3 (80.0-100.0) fL MCH 30.0 (25.0-35.0) pg MCHC 32.5 (31.0-37.0) g/dL RDW 13.7 (11.5-15.5) % Plt Count 188 (150-450) k/uL Neutrophils % 69 % Lymphocytes % 23 % Monocytes % 5 % Eosinophils % 2 % Basophils % 1 % Neutrophils # 3.4 (1.3-7.7) k/uL Lymphocytes # 1.1 (1.0-4.8) k/uL Monocytes # 0.3 (0-1.0) k/uL Eosinophils # 0.1 (0-0.7) k/uL Basophils # 0.0 (0-0.2) k/uL PT (9.0-12.0) sec INR (<1.2) APTT (22.0-30.0) sec D-Dimer (<0.60) mg/L FEU Sodium 140 (137-145) mmol/L Potassium 5.1 (3.5-5.1) mmol/L Chloride 107 (98-107) mmol/L Carbon Dioxide 24 (22-30) mmol/L Anion Gap 9 mmol/L BUN 18 (9-20) mg/dL Creatinine 0.83 (0.66-1.25) mg/dL Est GFR (CKD-EPI)AfAm >90 (>60 ml/min/1.73 sqM) Est GFR (CKD-EPI)NonAf >90 (>60 ml/min/1.73 sqM) Glucose 160 H (74-99) mg/dL Calcium 9.9 (8.4-10.2) mg/dL Total Bilirubin 0.6 (0.2-1.3) mg/dL AST 28 (17-59) U/L ALT 28 (21-72) U/L Alkaline Phosphatase 67 (38-126) U/L Total Creatine Kinase 117 (55-170) U/L CK-MB (CK-2) 1.5 (0.0-2.4) ng/mL CK-MB (CK-2) Rel Index 1.3 Troponin I <0.012 (0.000-0.034) ng/mL Total Protein 7.3 (6.3-8.2) g/dL Albumin 4.3 (3.5-5.0) g/dL 02/19/18 Range/Units 15:17 WBC (3.8-10.6) k/uL RBC (4.30-5.90) m/uL Hgb (13.0-17.5) gm/dL Hct (39.0-53.0) % MCV (80.0-100.0) fL MCH (25.0-35.0) pg MCHC (31.0-37.0) g/dL RDW (11.5-15.5) % Plt Count (150-450) k/uL Neutrophils % % Lymphocytes % % Monocytes % % Eosinophils % % Basophils % % Neutrophils # (1.3-7.7) k/uL Lymphocytes # (1.0-4.8) k/uL Monocytes # (0-1.0) k/uL Eosinophils # (0-0.7) k/uL Basophils # (0-0.2) k/uL PT 10.2 (9.0-12.0) sec INR 1.0 (<1.2) APTT 22.6 (22.0-30.0) sec D-Dimer 1.05 H (<0.60) mg/L FEU Sodium (137-145) mmol/L Potassium (3.5-5.1) mmol/L Chloride (98-107) mmol/L Carbon Dioxide (22-30) mmol/L Anion Gap mmol/L BUN (9-20) mg/dL Creatinine (0.66-1.25) mg/dL Est GFR (CKD-EPI)AfAm (>60 ml/min/1.73 sqM) Est GFR (CKD-EPI)NonAf (>60 ml/min/1.73 sqM) Glucose (74-99) mg/dL Calcium (8.4-10.2) mg/dL Total Bilirubin (0.2-1.3) mg/dL AST (17-59) U/L ALT (21-72) U/L Alkaline Phosphatase (38-126) U/L Total Creatine Kinase (55-170) U/L CK-MB (CK-2) (0.0-2.4) ng/mL CK-MB (CK-2) Rel Index Troponin I (0.000-0.034) ng/mL Total Protein (6.3-8.2) g/dL Albumin (3.5-5.0) g/dL Disposition Clinical Impression: Cough, Shortness of breath Disposition: HOME SELF-CARE Condition: Good Instructions: COPD (Chronic Obstructive Pulmonary Disease) (ED) Additional Instructions: Please take antibiotic as directed as well as steroid. Use inhaler as needed. Follow up with primary care in 1-2 days. Return to the Emergency Department if you have any worsening symptoms, increasing shortness of breath, or fevers. Prescriptions: Albuterol Inhaler [Ventolin Hfa Inhaler] 1 - 2 puff INHALATION Q6HR PRN #1 inhaler PRN Reason: Shortness Of Breath Azithromycin [Zithromax Z-pack] 250 mg PO DIRECTED #6 tab predniSONE 50 mg PO DAILY #5 tablet Is patient prescribed a controlled substance at d/c from ED?: No Referrals: Huseyin Amato MD [Primary Care Provider] - 1-2 days Time of Disposition: 17:27
[2018-02-19 15:32] LABS: Basophils % (A) 1 %; Eosinophils # (A) 0.1 k/uL (0-0.7); Eosinophils % (A) 2 %; HCT 53.4 % (39.0-53.0); HGB 17.4 gm/dL (13.0-17.5); Lymphocytes # (A) 1.1 k/uL (1.0-4.8); Lymphocytes % (A) 23 %; MCHC 32.5 g/dL (31.0-37.0); MCV 92.3 fL (80.0-100.0); Mean Platelet Volume 6.6; Monocytes # (A) 0.3 k/uL (0-1.0); Monocytes % (A) 5 %; Neutrophils # (A) 3.4 k/uL (1.3-7.7); Neutrophils % (A) 69 %; Platelet Count 188 k/uL (150-450); RBC 5.79 m/uL (4.30-5.90); RDW 13.7 % (11.5-15.5); WBC 4.9 k/uL (3.8-10.6)
[2018-02-19 15:43] LABS: ALT 28 U/L (21-72); AST 28 U/L (17-59); Albumin 4.3 g/dL (3.5-5.0); Alkaline Phosphatase 67 U/L (38-126); Anion Gap 9 mmol/L; Blood Urea Nitrogen 18 mg/dL (9-20); Calcium 9.9 mg/dL (8.4-10.2); Carbon Dioxide 24 mmol/L (22-30); Chloride 107 mmol/L (98-107); Glucose 160 mg/dL (74-99); Potassium 5.1 mmol/L (3.5-5.1); Sodium 140 mmol/L (137-145); Total Bilirubin 0.6 mg/dL (0.2-1.3); Total Protein 7.3 g/dL (6.3-8.2)
[2018-02-19 15:49] LABS: Creatine Kinase 117 U/L (55-170)
[2018-02-19 15:50] LABS: Partial Thromboplastin Time 22.6 sec (22.0-30.0); Prothrombin Time 10.2 sec (9.0-12.0)
[2018-02-19 15:51] LABS: D-Dimer 1.05 mg/L FEU (<0.60)
[2018-02-19 16:01] LABS: Creatine Kinase MB 1.5 ng/mL (0.0-2.4); Troponin I <0.012 ng/mL (0.000-0.034)
--- NOTE | 2018-02-19 16:03 | XR ---
EXAMINATION TYPE: XR chest 2V DATE OF EXAM: 02/19/2018 COMPARISON: 08/24/2017 HISTORY: Shortness of breath TECHNIQUE: Frontal and lateral views of the chest are obtained. FINDINGS: Scattered senescent parenchymal changes noted. Hyperinflation compatible with COPD. No evidence for infiltrate. No evidence for atelectasis. Heart size is stable. Mediastinal structures are stable and grossly unremarkable. No evidence for hilar prominence. Degenerative changes dorsal spine. IMPRESSION: 1. No evidence for acute pulmonary disease.
--- NOTE | 2018-02-19 16:50 | CT ---
EXAMINATION TYPE: CT chest angio for PE DATE OF EXAM: 02/19/2018 COMPARISON: None HISTORY: Chest congestion and shortness of breath. CT DLP: 255.2 mGycm Automated exposure control for dose reduction was used. CONTRAST: CT Chest for pulmonary embolism performed with with IV Contrast, patient injected with 83 mL of Isovu e 370. FINDINGS: There are 3-D post processed images. There is mild patchy groundglass interstitial infiltrate in both lungs. There is no evidence of a pul monary mass. Heart size is normal. There is no pericardial effusion. There are numerous calcified spl enic granulomata. There is no evidence of pleural effusion. There is normal contrast opacification of the pulmonary arteries. There are no filling defects. There are calcified granulomata at the right p ulmonary hilum. Thoracic aorta shows no evidence of dissection. Ascending aorta measures 3.5 cm. Ther e is no evidence of aneurysm. There is spurring in the thoracic spine. IMPRESSION: Old granulomatous disease. No evidence of pulmonary embolism. Interstitial pulmonary infiltrates coul d relate to fibrosis.
[2018-02-19 17:47] VITALS: BP 136/89; PULSE 89; TEMP 98
== END 2018-02-19 17:45 | disposition home or self-care (01) ==
LOC: EC 14:21
DX: R06.02 Shortness of breath (principal); R05 Cough; E11.9 Type 2 diabetes mellitus without complications; E78.5 Hyperlipidemia, unspecified; I10 Essential (primary) hypertension; Z87.891 Personal history of nicotine dependence; Z79.84 Long term (current) use of oral hypoglycemic drugs; Z79.899 Other long term (current) drug therapy; Z79.82 Long term (current) use of aspirin; Z88.8 Allergy status to other drugs, medicaments and biological substances
CPT/HCPCS: 99285; 96360; 36415; 93005; 85379; 80053; 82550; 82553; 84484; 85025; 85610; 85730; 87040; 71046; 71275; Q9967

== ENCOUNTER 2018-05-21 08:09 | Day surgery (SDC) | payer BC ==
[2018-05-18 09:35] VITALS: BMI 26.0
[~2018-05-21 08:09] MED LIST: LACTATED RINGERS 1,000 ML IV SCH; LIDOCAINE 1% 20 ML VIAL (10MG/ML) FOR IV START INTRADERMA PRN
[2018-05-21 08:26] VITALS: RESP 16; TEMP 97.3
[2018-05-21 08:32] LABS: Glucose,Whole Blood 169 mg/dL (75-99)
[2018-05-21] MEDS ORDERED: PROPOFOL 10 MG/ML 20 ML VIAL IV ONE (08:32)
--- NOTE | 2018-05-21 09:05 | P.PCN ---
Date of Procedure: 05/21/18 Procedure(s) Performed: Procedure: Total colonoscopy. Preoperative diagnosis: Screening for neoplasia. Postoperative diagnosis: 1. Sigmoid diverticulosis with no evidence of acute diverticulitis, strictures, polyps or cancer. 2. Low-grade internal hemorrhoids with no bleeding at the time of this exam. Preparation: HalfLytely prep. Sedation: Was provided by anesthesia. Brief clinical history: The patient is 62-year-old male who is scheduled for this evaluation for screening for neoplasia age being his risk factor. He had a prior exam in 2008. The patient has no abdominal complaints, bleeding or anemia. Procedure: With the patient on his left lateral decubitus position and after informed consent and adequate sedation, the perianal area was inspected and it did not show any fissures or fistulas. There were no masses felt on digital rectal examination. The Olympus CFH 190L video colonoscope was then inserted in the rectum in the usual fashion and advanced to the cecum. The mucosa appeared healthy. No polyps or tumors were seen. Several diverticular orifices were seen scattered in the sigmoid with no evidence of acute diverticulitis or strictures. I retroflexed the endoscope in the rectum before the endoscope was withdrawn. Low-grade internal hemorrhoids were noted with no evidence of bleeding. The patient tolerated the procedure well. Plan: The patient was reassured. Discussed dietary measures. He will follow up with you as planned and I recommended repeat exam in 10 years.
[2018-05-21 09:19] VITALS: BP 134/77; PULSE 58
== END 2018-05-21 09:40 | disposition home or self-care (01) ==
LOC: ORWHC2ENDO 08:09
DX: Z12.11 Encounter for screening for malignant neoplasm of colon (principal); K57.30 Diverticulosis of large intestine without perforation or abscess without bleeding; K64.8 Other hemorrhoids; E11.9 Type 2 diabetes mellitus without complications; I10 Essential (primary) hypertension; E78.5 Hyperlipidemia, unspecified; J45.909 Unspecified asthma, uncomplicated; Z79.84 Long term (current) use of oral hypoglycemic drugs; Z79.82 Long term (current) use of aspirin; Z79.899 Other long term (current) drug therapy; Z88.8 Allergy status to other drugs, medicaments and biological substances
CPT/HCPCS: J2704; G0121

== ENCOUNTER → 2018-10-04 | Day surgery (SDC) | payer BC ==
[2018-10-02 11:45] VITALS: BMI 27.4
[~2018-10-04] MED LIST changes: +DEXAMETHASONE SOD PHOS (MDV) 100 MG/10 ML VIAL ONE; +DEXAMETHASONE SOD PHOSPHATE 10 MG/ML 1 ML VIAL IV ONE; +DEXAMETHASONE SOD PHOSPHATE 4 MG/ML 1 ML VIAL IV ONE; +ETOMIDATE 2 MG/ML 10 ML VIAL ONE; +FAMOTIDINE 20 MG/2 ML VIAL IV ONE; +GLYCOPYRROLATE 0.2 MG/ML 2 ML VIAL ONE; +HYDROmorphone 0.5 MG/0.5 ML SYRINGE IVP PRN; +INSULIN ASPART (NovoLOG) 100 UNIT/ML VIAL SQ ONE; +LIDOCAINE 1% INJ 10MG/ML (20 ML MDV) ONE; +MIDAZOLAM (PF) 2 MG/2 ML VIAL IV PRN; +MIDAZOLAM 2 MG/2 ML VIAL ONE; +NEOSTIGMINE 1 MG/ML 10 ML VIAL ONE; +ONDANSETRON 4 MG/2 ML VIAL IVP ONE; +ROCURONIUM BROMIDE 10 MG/ML 10 ML VIAL IV ONE; +SCOPOLAMINE 1.5MG/72HR PATCH TRANSDERM ONE; +fentaNYL (PF) 50 MCG/ML 2 ML AMP ONE
[2018-10-04 09:22] VITALS: RESP 16
[2018-10-04] MEDS: ONDANSETRON 4 MG/2 ML VIAL IVP ONE ×2 (09:40→12:54)
[2018-10-04 09:49] LABS: Glucose,Whole Blood 221 mg/dL (75-99)
--- NOTE | 2018-10-04 12:39 | P.OP ---
Date of Procedure: 10/04/18 Preoperative Diagnosis: Right vocal cord mass, cough, dysphagia Postoperative Diagnosis: Same Procedure(s) Performed: Triple endoscopy and removal of right vocal cord mass Anesthesia: DANIELE Surgeon: [place] Estimated Blood Loss (ml): 0 Pathology: other (Right vocal cord) Condition: stable Disposition: PACU Indications for Procedure: This patient complained of hoarseness and on examination the office was found have a very large right vocal cord mass and removal was recommended he also had a cough and some swallowing issues. Triple endoscopy i.e. panendoscopy with removal of this mass was recommended. Operative Findings: Large right vocal cord mass was identified and removed. No pathology was noted to the esophagus or lungs Description of Procedure: This patient was taken to the operative room and placed in the supine position. A general inhalation anesthetic was administered to the patient by mask and subsequently intubated with an [employer] tube. A tooth guard was placed and a Jako laryngoscope was placed into the patient's mouth with care to avoid any trauma to the lips teeth gums or tongue. The base of tongue, vallecula, epiglottis, postcricoid space, piriform sinus, lateral pharynx and hypopharynx, true and false cords, ventricle, were inspected and great detail. The scope was placed on a Lewy. Microscopic visualization was performed with a high-powered microscope. The right vocal cord biopsy was performed. Hemostasis was spontaneous. The lesion was biopsied and sent for pathology. A bronchoscope was then inserted into the lungs and all 12 segments of the lungs were evaluated with the bronchoscope to the extent of visualization. There is no signs of any endobronchial lesions noted. The bronchoscope was then removed and the Jako laryngoscope and fluid was removed. Tooth guard was kept in place. An esophagoscope was then inserted into the patient's mouth and we extended the scope into the right piriform sinus into the esophagus. We passed the rigid esophagoscope into the esophagus to the lower esophageal sphincter and then in retrograde fashion evaluated the esophagus by pulling back to the upper esophageal sphincter. The entire length of the esophagus was evaluated directly. The patient tolerated this procedure well. Follow-up will be in the office in 1 week. Voice rest was recommended.
[2018-10-04 12:47] VITALS: TEMP 97.1
[2018-10-04 12:54] LABS: Glucose,Whole Blood 276 mg/dL (75-99)
[2018-10-04 14:07] VITALS: BP 101/63; PULSE 66
== END | disposition home or self-care (01) ==
LOC: OR 09:05
PROVIDERS: ATTEND Otolaryngology
DX: J38.3 Other diseases of vocal cords (principal); R13.10 Dysphagia, unspecified; R05 Cough; Z88.8 Allergy status to other drugs, medicaments and biological substances; I25.10 Atherosclerotic heart disease of native coronary artery without angina pectoris; I11.0 Hypertensive heart disease with heart failure; I50.22 Chronic systolic (congestive) heart failure; E78.5 Hyperlipidemia, unspecified; E11.9 Type 2 diabetes mellitus without complications; K21.9 Gastro-esophageal reflux disease without esophagitis; I44.7 Left bundle-branch block, unspecified; E78.00 Pure hypercholesterolemia, unspecified; Z79.82 Long term (current) use of aspirin; Z79.84 Long term (current) use of oral hypoglycemic drugs; Z79.899 Other long term (current) drug therapy
CPT/HCPCS: 88305; 84132; 31541; 43235; J2250; J1100 ×2; J2710; J2405; J0690; J2001; J3010

== ENCOUNTER 2020-08-30 19:28 | Emergency (ER) | payer BC ==
[2020-08-30 19:36] VITALS: TEMP 97.8
--- NOTE | 2020-08-30 20:05 | ED ---
ENT HPI - General Chief complaint: ENT Stated complaint: Throat pain Time Seen by Provider: 08/30/20 19:43 Source: patient Mode of arrival: ambulatory Limitations: no limitations - History of Present Illness Initial comments: 64-year-old male with history of throat cancer presents emergency Department with chief complaint of throat swelling. Patient reports on Monday he underwent his last, , radiation treatment. States after procedure she felt well, however he developed increased pain in his throat. He also reports difficulty swallowing but denies difficulties breathing. States his voice is also starting to decrease. He also reports the skin on his neck is beginning to burn where the radiation treatment occurred. States it is also beginning to feel scaly. States his previous treatments were never this severe. He denies any fevers or chills. - Related Data Home Medications Medication Instructions Recorded Confirmed Omeprazole [PriLOSEC] 20 mg PO AC-BRKFST PRN 08/24/17 08/30/20 glipiZIDE [Glucotrol] 10 mg PO DAILY 08/24/17 08/30/20 lisinopriL [Zestril] 10 mg PO DAILY 08/24/17 08/30/20 metFORMIN HCL ER [Glucophage Xr] 1,000 mg PO BID 08/24/17 08/30/20 carvediloL [Coreg] 3.125 mg PO BID 10/02/18 08/30/20 Dulaglutide [Trulicity] 0.75 mg SQ TU 09/06/19 08/30/20 Atorvastatin [Lipitor] 80 mg PO HS 08/30/20 08/30/20 Testosteron 1000mg/10ml 100 mg IM Q14D 08/30/20 08/30/20 fentaNYL 12MCG/HR PATCH [Duragesic 1 patch TRANSDERM Q72H 08/30/20 08/30/20 12MCG/HR] Previous Rx's Medication Instructions Recorded Nitroglycerin Sl Tabs [Nitrostat] 0.4 mg SUBLINGUAL Q5M PRN #25 tab 08/25/17 Spironolactone [Aldactone] 12.5 mg PO DAILY #30 tablet 08/25/17 Clopidogrel [Plavix] 75 mg PO DAILY #30 tab 09/08/19 Allergies Allergy/AdvReac Type Severity Reaction Status Date / Time liraglutide [From Victoza] AdvReac Nausea & Verified 08/30/20 21:24 Vomiting/Weakness Review of Systems ROS Statement: Those systems with pertinent positive or pertinent negative responses have been documented in the HPI. ROS Other: All systems not noted in ROS Statement are negative. Past Medical History Past Medical History: Diabetes Mellitus, GERD/Reflux, Hyperlipidemia, Hypertension, Osteoarthritis (OA) Additional Past Medical History / Comment(s): chronic neck pain with "head t remors", wears LifeVest-will be getting defibrillator in future, mass on vocal cord per pt. History of Any Multi-Drug Resistant Organisms: None Reported Past Surgical History: No Surgical Hx Reported Additional Past Surgical History / Comment(s): throat lesions from HPV removed, pilonidal cyst removed Past Anesthesia/Blood Transfusion Reactions: No Reported Reaction Past Psychological History: Anxiety Smoking Status: Former smoker Past Alcohol Use History: Occasional Past Drug Use History: Marijuana - Past Family History Father Family Medical History: Diabetes Mellitus General Exam Limitations: no limitations General appearance: alert, in no apparent distress Head exam: Present: atraumatic, normocephalic, normal inspection Eye exam: Present: normal appearance, PERRL, EOMI Pupils: Present: normal accommodation ENT exam: Present: normal exam, normal oropharynx (No pharyngeal or tonsillar erythema or enlargement. Uvula midline. No oral lesions.), mucous membranes mo ist, TM's normal bilaterally, normal external ear exam Neck exam: Present: normal inspection (Erythema with some scaling on the anterior aspect of the neck.), tenderness, full ROM Respiratory exam: Present: normal lung sounds bilaterally. Absent: respiratory distress Cardiovascular Exam: Present: regular rate, normal rhythm, normal heart sounds Extremities exam: Present: normal inspection, full ROM. Absent: tenderness Back exam: Present: normal inspection, full ROM. Absent: tenderness Neurological exam: Present: alert, oriented X3, normal gait Psychiatric exam: Present: normal affect, normal mood Skin exam: Present: warm, dry, intact, normal color Course Vital Signs 08/30/20 08/30/20 19:31 20:20 Temperature 97.8 F Pulse Rate 79 77 Respiratory 20 20 Rate Blood Pressure 132/87 134/76 O2 Sat by Pulse 96 98 Oximetry Medical Decision Making - Medical Decision Making 64-year-old male presents to the emergency department with a chief complaint of throat pain. On physical examination, there is excoriations on the anterior aspect of the neck. Topical cream was applied to help with the discomfort. Patient was also given analgesia in the emergency department. CBC CMP unremarkable. X-ray shows no acute findings of the soft tissues of the neck. Patient does not have any difficulties breathing but does complain of difficulty swallowing. I consulted Dr. Valdivia who recommended CT imaging of the neck. This was performed and found no acute findings. I spoke with Dr. Valdivia again, who recommended 15 mg of Decadron and outpatient follow-up with his ENT specialist. Strict return parameters were thoroughly discussed with patient was understanding and agreeable. Case discussed with Dr. Beltre - Lab Data Result diagrams: 08/30/20 20:10 08/30/20 20:10 Lab Results 08/30/20 08/30/20 Range/Units 20:10 20:10 WBC 5.7 (3.8-10.6) k/uL RBC 5.42 (4.30-5.90) m/uL Hgb 16.7 (13.0-17.5) gm/dL Hct 49.2 (39.0-53.0) % MCV 90.8 (80.0-100.0) fL MCH 30.8 (25.0-35.0) pg MCHC 34.0 (31.0-37.0) g/dL RDW 13.8 (11.5-15.5) % Plt Count 233 (150-450) k/uL MPV 6.2 Neutrophils % 68 % Lymphocytes % 20 % Monocytes % 7 % Eosinophils % 3 % Basophils % 1 % Neutrophils # 3.9 (1.3-7.7) k/uL Lymphocytes # 1.1 (1.0-4.8) k/uL Monocytes # 0.4 (0-1.0) k/uL Eosinophils # 0.2 (0-0.7) k/uL Basophils # 0.0 (0-0.2) k/uL Sodium 135 L (137-145) mmol/L Potassium 4.5 (3.5-5.1) mmol/L Chloride 96 L (98-107) mmol/L Carbon Dioxide 29 (22-30) mmol/L Anion Gap 10 mmol/L BUN 16 (9-20) mg/dL Creatinine 0.81 (0.66-1.25) mg/dL Est GFR (CKD-EPI)AfAm >90 (>60 ml/min/1.73 sqM) Est GFR (CKD-EPI)NonAf >90 (>60 ml/min/1.73 sqM) Glucose 135 H (74-99) mg/dL Calcium 10.1 (8.4-10.2) mg/dL Total Bilirubin 0.5 (0.2-1.3) mg/dL AST 27 (17-59) U/L ALT 27 (4-49) U/L Alkaline Phosphatase 95 (38-126) U/L Total Protein 7.6 (6.3-8.2) g/dL Albumin 4.7 (3.5-5.0) g/dL Disposition Clinical Impression: Throat discomfort Disposition: HOME SELF-CARE Condition: Stable Instructions (If sedation given, give patient instructions): Strep Throat (DC) Additional Instructions: Please return to the Emergency Department if symptoms worsen or any other concerns. Is patient prescribed a controlled substance at d/c from ED?: No Referrals: Huseyin Amato MD [Primary Care Provider] - 1-2 days Time of Disposition: 22:05
--- NOTE | 2020-08-30 20:15 | XR ---
EXAMINATION TYPE: XR soft tissue neck DATE OF EXAM: 08/30/2020 COMPARISON: NONE HISTORY: Throat swelling TECHNIQUE: 2 views FINDINGS: Epiglottis is normal. Subglottic trachea appears normal. Tonsils and adenoids appear normal . There is some narrowing at C5-6 and C6-7 disc spaces of the cervical spine. IMPRESSION: Negative cervical soft tissue exam.
[2020-08-30] MEDS ORDERED: MORPHINE SULFATE 4 MG/ML SYRINGE IVP STA (20:24)
[2020-08-30] MEDS ORDERED: ONDANSETRON 4 MG/2 ML VIAL IVP STA (20:24)
[2020-08-30 20:29] LABS: Basophils % (A) 1 %; Eosinophils # (A) 0.2 k/uL (0-0.7); Eosinophils % (A) 3 %; HCT 49.2 % (39.0-53.0); HGB 16.7 gm/dL (13.0-17.5); Lymphocytes # (A) 1.1 k/uL (1.0-4.8); Lymphocytes % (A) 20 %; MCH 30.8 pg (25.0-35.0); MCV 90.8 fL (80.0-100.0); Mean Platelet Volume 6.2; Monocytes # (A) 0.4 k/uL (0-1.0); Monocytes % (A) 7 %; Neutrophils # (A) 3.9 k/uL (1.3-7.7); Neutrophils % (A) 68 %; Platelet Count 233 k/uL (150-450); RBC 5.42 m/uL (4.30-5.90); RDW 13.8 % (11.5-15.5); WBC 5.7 k/uL (3.8-10.6)
[2020-08-30 20:41] LABS: ALT 27 U/L (4-49); AST 27 U/L (17-59); African American GFR (CKD) >90 (>60 ml/min/1.73 sqM); Albumin 4.7 g/dL (3.5-5.0); Alkaline Phosphatase 95 U/L (38-126); Anion Gap 10 mmol/L; Blood Urea Nitrogen 16 mg/dL (9-20); Calcium 10.1 mg/dL (8.4-10.2); Carbon Dioxide 29 mmol/L (22-30); Chloride 96 mmol/L (98-107); Glucose 135 mg/dL (74-99); Non-African American GFR(CKD) >90 (>60 ml/min/1.73 sqM); Potassium 4.5 mmol/L (3.5-5.1); Sodium 135 mmol/L (137-145); Total Bilirubin 0.5 mg/dL (0.2-1.3); Total Protein 7.6 g/dL (6.3-8.2)
[2020-08-30] MEDS ORDERED: PETROLATUM, WHITE OINT 50 GM TUBE TOPICAL STA (21:14)
[2020-08-30] MEDS ORDERED: WATER IV ONE ×2 (21:30)
[2020-08-30] MEDS ORDERED: DEXTROSE 5% IV ONE ×2 (21:30)
[2020-08-30] MEDS ORDERED: DEXAMETHASONE SOD PHOSPHATE IV ONE ×2 (21:30)
--- NOTE | 2020-08-30 21:41 | CT ---
EXAMINATION TYPE: CT soft tissue neck w con DATE OF EXAM: 08/30/2020 COMPARISON: None HISTORY: Throat ca, sweling, can't swallow, voice changes. CT DLP: 300.4 mGycm Automated exposure control for dose reduction was used. CONTRAST: Performed with IV Contrast, patient injected with 100 mL of Isovue 300. Images were obtained from the level of the aortic arch to the top of the frontal sinuses with IV cont rast. Trachea appears normal. Thyroid gland is symmetric. There is normal branching pattern of the great ve ssels on the aortic arch. There is no evidence of superior mediastinal adenopathy. There is contrast opacification of the carotid arteries and jugular veins. Epiglottis is normal. The tongue is intact. Tonsils and adenoids appear within normal limits. I see n o evidence of a pharyngeal mass. I see no evidence of any significant cervical adenopathy. The submandibular salivary glands are symme tric. The parotid glands are symmetric. There is metal artifact which obscures the upper oropharynx t o some degree. There is slight asymmetric increased soft tissue density at the left side ariepiglotti c fold compared to the right. This is thought to be within normal variation. The cervical vertebra have normal alignment. There is no compression fracture. Skull base is intact. There is normal aeration of the mastoid sinuses. There is normal aeration of the epitympanic recess b ilaterally. The external auditory canals appear normal. There is no evidence of posterior fossa mass. The globes are symmetric. There is no evidence of retro-orbital mass. There is overall fairly normal aeration of the paranasal sinuses. IMPRESSION: Negative exam. I do not see evidence of a pharyngeal mass. A tumor mass is not identified.
[2020-08-30 22:49] VITALS: BP 132/76; PULSE 79; RESP 19
== END 2020-08-30 22:46 | disposition home or self-care (01) ==
LOC: EC 19:28
DX: E11.9 Type 2 diabetes mellitus without complications (principal); E78.5 Hyperlipidemia, unspecified; K21.9 Gastro-esophageal reflux disease without esophagitis; M19.90 Unspecified osteoarthritis, unspecified site; Z79.02 Long term (current) use of antithrombotics/antiplatelets; Z79.84 Long term (current) use of oral hypoglycemic drugs; Z79.899 Other long term (current) drug therapy; Z87.891 Personal history of nicotine dependence; Z85.21 Personal history of malignant neoplasm of larynx
CPT/HCPCS: 36415; 80053; 85025; 70360; 70491; 99284; 96374; 96375; J2270; J1100; J2405; Q9967

== ENCOUNTER 2023-06-01 09:30 | Inpatient (IN) | payer MEDICARE ==
[2023-06-01] MEDS ORDERED: SODIUM CHLORIDE 0.9% 1,000 ML IV STA (11:10)
--- NOTE | 2023-06-01 11:10 | ED ---
Recheck HPI - General Chief Complaint: Recheck/Abnormal Lab/Rx Stated Complaint: elevated heart rate-sent by Cardi Time Seen by Provider: 06/01/23 09:50 Source: patient, RN notes reviewed, old records reviewed Mode of arrival: ambulatory Limitations: no limitations - History of Present Illness Initial Comments: This is a 67 male to the ER today for evaluation regards to bradycardia. Patient was seen by his medical scientific officer in office and sent to the ER for evaluation, patient is pending and getting admission and cardiology evaluation for pacemaker versus defibrillator placement. Patient will be admitted for cardiology to see MD Complaint: other (Low heart rate) -: days(s) Returns Today for: Called Because of Abnormal Lab/Test Symptoms Since Prior Visit: no new symptoms Context: planned re-check Associated Symptoms: none Treatments Prior to Arrival: IV/IO - Related Data Home Medications Medication Instructions Recorded Confirmed glipiZIDE [Glucotrol] 10 mg PO DAILY 08/24/17 06/01/23 lisinopriL [Zestril] 10 mg PO DAILY 08/24/17 06/01/23 metFORMIN HCL ER [Glucophage XR] 1,000 mg PO BID 08/24/17 06/01/23 Dulaglutide [Trulicity] 0.75 mg SQ TU 09/06/19 06/01/23 Atorvastatin [Lipitor] 80 mg PO HS 08/30/20 06/01/23 Aspirin EC [Ecotrin Low Dose] 81 mg PO DAILY 06/01/23 06/01/23 Glucosam/Yaw-Msm1/C/Shon/Bosw 1 tab PO DAILY 06/01/23 06/01/23 [Trtirgwxpoo-Zekgcnfpymd-XBY Tb] Multivitamins, Thera [Multivitamin 1 tab PO DAILY 06/01/23 06/01/23 (formulary)] [place]-3/Dha/Epa/Fish Oil [Fish Oil 1 cap PO DAILY 06/01/23 06/01/23 1,000 mg Softgel] Omeprazole [PriLOSEC] 20 mg PO DAILY PRN 06/01/23 06/01/23 Testosterone Cypionate 100 mg IM Q14D 06/01/23 06/01/23 [Depo-Testosterone] Allergies Allergy/AdvReac Type Severity Reaction Status Date / Time liraglutide [From Victoza] AdvReac Nausea & Verified 06/01/23 12:02 Vomiting/Weakness Review of Systems ROS Statement: Those systems with pertinent positive or pertinent negative responses have been documented in the HPI. ROS Other: All systems not noted in ROS Statement are negative. Past Medical History Past Medical History: Diabetes Mellitus, GERD/Reflux, Hyperlipidemia, Hypertension, Osteoarthritis (OA) Additional Past Medical History / Comment(s): chronic neck pain with "head tremors", wears LifeVest-will be getting defibrillator in future, mass on vocal cord per pt. History of Any Multi-Drug Resistant Organisms: None Reported Past Surgical History: No Surgical Hx Reported Additional Past Surgical History / Comment(s): throat lesions from HPV removed, pilonidal cyst removed Past Anesthesia/Blood Transfusion Reactions: No Reported Reaction Past Psychological History: Anxiety Smoking Status: Former smoker Past Alcohol Use History: Occasional Past Drug Use History: Marijuana - Past Family History Father Family Medical History: Diabetes Mellitus General Exam Limitations: no limitations General appearance: alert, in no apparent distress, anxious Head exam: Present: atraumatic, normocephalic, normal inspection Eye exam: Present: normal appearance, PERRL, EOMI. Absent: scleral icterus, c onjunctival injection, periorbital swelling ENT exam: Present: normal exam, mucous membranes moist Neck exam: Present: normal inspection. Absent: tenderness, meningismus, lymphadenopathy Respiratory exam: Present: normal lung sounds bilaterally. Absent: respiratory distress, wheezes, rales, rhonchi, stridor Cardiovascular Exam: Present: normal rhythm, bradycardia, normal heart sounds. Absent: systolic murmur, diastolic murmur, rubs, gallop, clicks GI/Abdominal exam: Present: soft, normal bowel sounds. Absent: distended, tenderness, guarding, rebound, rigid Extremities exam: Present: normal inspection, full ROM, normal capillary refill. Absent: tenderness, pedal edema, joint swelling, calf tenderness Back exam: Present: normal inspection Neurological exam: Present: alert, oriented X3, CN II-XII intact Psychiatric exam: Present: normal affect, normal mood Skin exam: Present: warm, dry, intact, normal color. Absent: rash Course Vital Signs 06/01/23 06/01/23 06/01/23 09:40 10:40 11:00 Temperature 97.6 F Pulse Rate 44 L 40 L 40 L Pulse Rate [ Pulse Oximetery ] Respiratory 18 18 18 Rate Blood Pressure 170/80 150/70 150/70 Blood Pressure [Left Arm] Blood Pressure [Right Arm] O2 Sat by Pulse 99 96 Oximetry 06/01/23 06/01/23 06/01/23 11:30 12:00 13:00 Temperature Pulse Rate 40 L 41 L 37 L Pulse Rate [ Pulse Oximetery ] Respiratory 16 18 16 Rate Blood Pressure 161/74 147/61 156/67 Blood Pressure [Left Arm] Blood Pressure [Right Arm] O2 Sat by Pulse 96 97 Oximetry 06/01/23 06/01/23 06/01/23 13:30 14:00 15:39 Temperature Pulse Rate 37 L 39 L 44 L Pulse Rate [ Pulse Oximetery ] Respiratory 18 18 18 Rate Blood Pressure 152/66 155/65 183/76 Blood Pressure [Left Arm] Blood Pressure [Right Arm] O2 Sat by Pulse 96 97 99 Oximetry 06/01/23 06/01/23 06/01/23 17:47 18:48 20:00 Temperature 97.4 F L 97.7 F 97.7 F Pulse Rate 42 L 41 L Pulse Rate [ 40 L Pulse Oximetery ] Respiratory 18 18 18 Rate Blood Pressure 154/70 Blood Pressure 176/76 [Left Arm] Blood Pressure 161/73 [Right Arm] O2 Sat by Pulse 97 97 99 Oximetry 06/02/23 06/02/23 06/02/23 00:00 04:00 06:52 Temperature 98.2 F 98.1 F 98.1 F Pulse Rate Pulse Rate [ 40 L 39 L 39 L Pulse Oximetery ] Respiratory 16 16 16 Rate Blood Pressure Blood Pressure [Left Arm] Blood Pressure 129/48 147/74 147/74 [Right Arm] O2 Sat by Pulse 95 95 95 Oximetry 06/02/23 06/02/23 07:54 11:27 Temperature Pulse Rate 40 L 38 L Pulse Rate [ Pulse Oximetery ] Respiratory 18 16 Rate Blood Pressure 168/73 Blood Pressure [Left Arm] Blood Pressure [Right Arm] O2 Sat by Pulse 97 Oximetry - Reevaluation(s) Reevaluation #1: 06/01/23 12:51 Medical records reviewed Reevaluation #2: 06/01/23 12:51 Patient symptoms unchanged Reevaluation #3: 06/01/23 12:51 Patient for results and questions answered Reevaluation #4: 06/01/23 12:51 Was pt. sent in by a medical professional or institution (KLEBER Valdovinos, DRUPAL ARCHITECT, urgent care, hospital, or retirement...) When possible be specific @ -no Did you speak to anyone other than the patient for history (EMS, parent, family, police, friend...)? What history was obtained from this source @ -no Did you review nursing and triage notes (agree or disagree)? Why? @ -agree Are old charts reviewed (outside hosp., previous admission, EMS record, old EKG, old radiological studies, urgent care reports/EKG's, retirement records)? Report findings @ -yes Differential Diagnosis (chest pain, altered mental status, abdominal pain women, abdominal pain men, vaginal bleeding, weakness, fever, dyspnea, syncope, headache, dizziness, GI bleed, back pain, seizure, CVA, palpatations, mental health, musculoskeletal)? @ -prior EKG interpreted by me (3pts min.). @ -yes X-rays interpreted by me (1pt min.). @ -no CT interpreted by me (1pt min.). @ -no U/S interpreted by me (1pt. min.). @ -no What testing was considered but not performed or refused? (CT, X-rays, U/S, labs)? Why? @ -none What meds were considered but not given or refused? Why? @ -none Did you discuss the management of the patient with other professionals (professionals i.e. KLEBER Valdovinos, DRUPAL ARCHITECT, lab, RT, psych nurse, social media community manager, sheet turner, teacher, signals officer, machine adjuster leader case trim)? Give summary @ -no Was smoking cessation discussed for >3mins.? @ -no Was critical care preformed (if so, how long)? @ -[id number] Were there social determinants of health that impacted care today? How? (Landon elessness, low income, unemployed, alcoholism, drug addiction, transportation, low edu. Level, literacy, decrease access to med. care, senior living, rehab)? @ -none Was there de-escalation of care discussed even if they declined (Discuss DNR or withdrawal of care, Hospice)? DNR status @ -no What co-morbidities impacted this encounter? (DM, HTN, Smoking, COPD, CAD, Cancer, CVA, ARF, Chemo, Hep., AIDS, mental health diagnosis, sleep apnea, morbid obesity)? @ -none Was patient admitted / discharged? Hospital course, mention meds given and route, prescriptions, significant lab abnormalities, going to OR and other pertinent info. @ - 67 male who was sent in by cardiology for bradycardia. Patient will be admitted for cardiology evaluation management Admitted Undiagnosed new problem with uncertain prognosis? @ -no Drug Therapy requiring intensive monitoring for toxicity (Heparin, Nitro, Insulin, Cardizem)? @ -no Were any procedures done? @ -no Diagnosis/symptom? @ -Bradycardia arrhythmia Acute, or Chronic, or Acute on Chronic? @ -Acute Uncomplicated (without systemic symptoms) or Complicated (systemic symptoms)? @ -Complicated Side effects of treatment? @ -no Exacerbation, Progression, or Severe Exacerbation? @ -exacerbation Poses a threat to life or bodily function? How? (Chest pain, [place], [place], pneumonia, PE, COPD, DKA, ARF, appy, cholecystitis, CVA, Diverticulitis, Homicidal, Cristina cidal, threat to staff... and all critical care pts) @ -yes significant arrhythmia Reevaluation #5: 06/01/23 12:51 Differential Palpitations Ventricular arrhythmias, atrial arrhythmias, myocardial infarction, anemia, thyrotoxicosis, electrolyte imbalance, hypokalemia, pulmonary embolism, pulmonary disease, drugs, alcohol, anxiety, stress.... This is not meant to be an all-inclusive list. - Consultations Consultation #1: Spoke with sound who can admit this patient Medical Decision Making - Medical Decision Making 67 male who was sent in by cardiology for bradycardia. Patient will be admitted for cardiology evaluation management - Lab Data Result diagrams: 06/03/23 09:05 06/03/23 09:05 Lab Results 06/01/23 06/01/23 06/01/23 Range/Units 11:44 11:44 11:44 WBC 6.6 (3.8-10.6) k/uL RBC 4.67 (4.30-5.90) m/uL Hgb 13.2 (13.0-17.5) gm/dL Hct 40.7 (39.0-53.0) % MCV 87.2 (80.0-100.0) fL MCH 28.2 (25.0-35.0) pg MCHC 32.4 (31.0-37.0) g/dL RDW 14.9 (11.5-15.5) % Plt Count 174 (150-450) k/uL MPV 8.1 Neutrophils % 76 % Lymphocytes % 13 % Monocytes % 7 % Eosinophils % 2 % Basophils % 0 % Neutrophils # 5.0 (1.3-7.7) k/uL Lymphocytes # 0.8 L (1.0-4.8) k/uL Monocytes # 0.4 (0-1.0) k/uL Eosinophils # 0.1 (0-0.7) k/uL Basophils # 0.0 (0-0.2) k/uL Hypochromasia Slight PT 11.5 (10.0-12.5) sec INR 1.1 (<1.2) APTT 24.4 (22.0-30.0) sec Sodium 139 (137-145) mmol/L Potassium 4.3 (3.5-5.1) mmol/L Chloride 104 (98-107) mmol/L Carbon Dioxide 23 (22-30) mmol/L Anion Gap 12 mmol/L BUN 17 (9-20) mg/dL Creatinine 0.89 (0.66-1.25) mg/dL Est GFR (CKD-EPI)AfAm >90 (>60 ml/min/1.73 sqM) Est GFR (CKD-EPI)NonAf 89 (>60 ml/min/1.73 sqM) Glucose 123 H (74-99) mg/dL Calcium 9.1 (8.4-10.2) mg/dL Phosphorus 3.6 (2.5-4.5) mg/dL Magnesium 1.6 (1.6-2.3) mg/dL Total Bilirubin 0.8 (0.2-1.3) mg/dL AST 34 (17-59) U/L ALT 34 (4-49) U/L Alkaline Phosphatase 97 (38-126) U/L Troponin I (0.000-0.034) ng/mL Total Protein 6.4 (6.3-8.2) g/dL Albumin 3.7 (3.5-5.0) g/dL TSH 1.590 (0.465-4.680) mIU/L 06/01/23 Range/Units 11:44 WBC (3.8-10.6) k/uL RBC (4.30-5.90) m/uL Hgb (13.0-17.5) gm/dL Hct (39.0-53.0) % MCV (80.0-100.0) fL MCH (25.0-35.0) pg MCHC (31.0-37.0) g/dL RDW (11.5-15.5) % Plt Count (150-450) k/uL MPV Neutrophils % % Lymphocytes % % Monocytes % % Eosinophils % % Basophils % % Neutrophils # (1.3-7.7) k/uL Lymphocytes # (1.0-4.8) k/uL Monocytes # (0-1.0) k/uL Eosinophils # (0-0.7) k/uL Basophils # (0-0.2) k/uL Hypochromasia PT (10.0-12.5) sec INR (<1.2) APTT (22.0-30.0) sec Sodium (137-145) mmol/L Potassium (3.5-5.1) mmol/L Chloride (98-107) mmol/L Carbon Dioxide (22-30) mmol/L Anion Gap mmol/L BUN (9-20) mg/dL Creatinine (0.66-1.25) mg/dL Est GFR (CKD-EPI)AfAm (>60 ml/min/1.73 sqM) Est GFR (CKD-EPI)NonAf (>60 ml/min/1.73 sqM) Glucose (74-99) mg/dL Calcium (8.4-10.2) mg/dL Phosphorus (2.5-4.5) mg/dL Magnesium (1.6-2.3) mg/dL Total Bilirubin (0.2-1.3) mg/dL AST (17-59) U/L ALT (4-49) U/L Alkaline Phosphatase (38-126) U/L Troponin I 0.020 (0.000-0.034) ng/mL Total Protein (6.3-8.2) g/dL Albumin (3.5-5.0) g/dL TSH (0.465-4.680) mIU/L - EKG Data -: EKG Interpreted by Me (EKG is sinus bradycardia 41 GA 136 QRS 174 QTc 452) Critical Care Time Critical Care Time: Yes Total Critical Care Time: 31 Disposition Clinical Impression: Dyspnea, Left bundle branch block, Bradycardia Disposition: ADMITTED IP TO THIS [facility] Condition: Stable Is patient prescribed a controlled substance at d/c from ED?: No Time of Disposition: 12:45
[2023-06-01] MEDS: SODIUM CHLORIDE 0.9% 1,000 ML IV SCH ×2 (11:28)
[2023-06-01 11:51] LABS: Basophils % (A) 0 %; Eosinophils # (A) 0.1 k/uL (0-0.7); Eosinophils % (A) 2 %; HCT 40.7 % (39.0-53.0); HGB 13.2 gm/dL (13.0-17.5); Hypochromasia Slight; Lymphocytes # (A) 0.8 k/uL (1.0-4.8); Lymphocytes % (A) 13 %; MCH 28.2 pg (25.0-35.0); MCHC 32.4 g/dL (31.0-37.0); MCV 87.2 fL (80.0-100.0); Mean Platelet Volume 8.1; Monocytes # (A) 0.4 k/uL (0-1.0); Monocytes % (A) 7 %; Neutrophils % (A) 76 %; Platelet Count 174 k/uL (150-450); RBC 4.67 m/uL (4.30-5.90); RDW 14.9 % (11.5-15.5); WBC 6.6 k/uL (3.8-10.6)
[2023-06-01 12:05] LABS: INR 1.1 (<1.2); Partial Thromboplastin Time 24.4 sec (22.0-30.0); Prothrombin Time 11.5 sec (10.0-12.5)
[2023-06-01 12:07] LABS: ALT 34 U/L (4-49); AST 34 U/L (17-59); African American GFR (CKD) >90 (>60 ml/min/1.73 sqM); Albumin 3.7 g/dL (3.5-5.0); Alkaline Phosphatase 97 U/L (38-126); Anion Gap 12 mmol/L; Blood Urea Nitrogen 17 mg/dL (9-20); Calcium 9.1 mg/dL (8.4-10.2); Carbon Dioxide 23 mmol/L (22-30); Chloride 104 mmol/L (98-107); Glucose 123 mg/dL (74-99); Magnesium 1.6 mg/dL (1.6-2.3); Non-African American GFR(CKD) 89 (>60 ml/min/1.73 sqM); Phosphorus 3.6 mg/dL (2.5-4.5); Potassium 4.3 mmol/L (3.5-5.1); Sodium 139 mmol/L (137-145); Total Bilirubin 0.8 mg/dL (0.2-1.3); Total Protein 6.4 g/dL (6.3-8.2)
[2023-06-01] MEDS ORDERED: NALOXONE 0.4 MG/ML 1 ML VIAL IV PRN (12:48)
--- NOTE | 2023-06-01 13:01 | CA ---
Transthoracic Echo Report Name: Devin Haines Age: 67 Gender: M : 1955 Exam Date: 06/01/2023 11:20 Exam Location: [place] Echo Ht (in): 71 Wt (lb): 192 Ordering Physician: Mariya Espino Attending/Referring Phys: [id number], Srinivas Electronic Security Specialist Linh Galvan [facility] Procedure CPT: Indications: heart block, needs pacemaker, sent to ER by [facility] Cardiac Hx: Technical Quality: Fair Contrast 1: Definity Total Dose (mL): 5 Contrast 2: Total Dose (mL): MEASUREMENTS (Male / Female) Normal Values 2D ECHO LV Diastolic Diameter PLAX 5.0 cm 4.2 - 5.9 / 3.9 - 5.3 cm LV Systolic Diameter PLAX 4.0 cm IVS Diastolic Thickness 1.0 cm 0.6 - 1.0 / 0.6 - 0.9 cm LVPW Diastolic Thickness 1.0 cm 0.6 - 1.0 / 0.6 - 0.9 cm LV Relative Wall Thickness 0.4 LVOT Diameter 2.1 cm LV Diastolic Volume MOD BP 159.8 cm??? 67 - 155 / 56 - 104 cm??? LV Systolic Volume MOD BP 70.9 cm??? 22 - 58 / 19 - 49 cm??? LV Ejection Fraction MOD BP 55.6 % >= 55 % LV Cardiac Index MOD BP 1734.2 cm???/min???m??? LV Diastolic Volume MOD 4C 147.7 cm??? LV Systolic Volume MOD 4C 66.1 cm??? LV Ejection Fraction MOD 4C 55.3 % LV Cardiac Index MOD 4C 1592.4 cm???/min???m??? LV Diastolic Length 4C 9.6 cm LV Systolic Length 4C 8.3 cm LV Diastolic Volume MOD 2C 160.1 cm??? LV Systolic Volume MOD 2C 72.0 cm??? LV Ejection Fraction MOD 2C 55.0 % LV Cardiac Index MOD 2C 1718.8 cm???/min???m??? LV Diastolic Length 2C 8.8 cm LV Systolic Length 2C 7.6 cm Ascending Aorta Diameter 3.8 cm M-MODE Aortic Root Diameter MM 3.0 cm LA Systolic Diameter MM 4.6 cm LA Ao Ratio MM 1.5 AV Cusp Separation MM 2.0 cm DOPPLER AV Peak Velocity 175.0 cm/s AV Peak Gradient 12.2 mmHg AV Mean Velocity 132.3 cm/s AV Mean Gradient 7.5 mmHg AV Velocity Time Integral 40.3 cm LVOT Peak Velocity 118.3 cm/s LVOT Peak Gradient 5.6 mmHg LVOT Velocity Time Integral 27.7 cm LVOT Stroke Volume 95.6 cm??? LVOT Stroke Volume Index 46.1 ml/m??? LVOT Cardiac Index 1864.7 cm???/min???m??? AV Area Cont Eq vti 2.4 cm??? AV Area Cont Eq pk 2.3 cm??? MR Peak Velocity 454.2 cm/s MR Peak Gradient 82.5 mmHg Mitral E Point Velocity 113.4 cm/s Mitral A Point Velocity 47.9 cm/s Mitral E to A Ratio 2.4 MV Deceleration Time 186.2 ms LV E' Lateral Velocity 17.1 cm/s Mitral E to LV E' Lateral Ratio 6.6 LV E' Septal Velocity 14.2 cm/s Mitral E to LV E' Septal Ratio 8.0 TR Peak Velocity 273.3 cm/s TR Peak Gradient 29.9 mmHg Right Atrial Pressure 15.0 mmHg Pulmonary Artery Systolic Pressu 44.9 mmHg Right Ventricular Systolic Press 44.9 mmHg FINDINGS Left Ventricle Left ventricular wall thickness at upper limits of normal. Left ventricular cavity size normal. Left ventricular ejection fraction is estimated at 40-45%. Mildly to moderately reduced global left ventricular systolic function. Right Ventricle Moderately right ventricular dilatation. Moderate pulmonary hypertension. Right Atrium Moderate right atrial dilatation. Left Atrium Severe left atrial dilatation. Mitral Valve Structurally normal mitral valve. Moderate mitral regurgitation. Aortic Valve Trileaflet aortic valve. Aortic valve sclerosis. Trace aortic regurgitation. Tricuspid Valve Structurally normal tricuspid valve. Mild tricuspid regurgitation. Pulmonic Valve Pulmonic valve not well visualized. Pericardium Minimal pericardial effusion (normal variant). Aorta Normal size aortic root and upper normal proximal ascending aorta. CONCLUSIONS 1. Mild to moderate left ventricular systolic global hypokinesis 2. Moderate mitral and mild tricuspid regurgitation with moderate pulmonary hypertension 3. Trace aortic regurgitation Previewed by: Dr. Mayelin Graves MD (Electronically Signed) Final Date: 01 June 2023 13:00
[2023-06-01] MEDS ORDERED: PANTOPRAZOLE 40 MG TABLET PO PRN (15:01)
[2023-06-01] MEDS ORDERED: DEXTROSE 50% SYRINGE 50 ML IVP PRN ×2 (15:02)
[2023-06-01 17:50] LABS: Glucose,Whole Blood 193 mg/dL (70-110)
[2023-06-01] MEDS: INSULIN ASPART (NovoLOG) 100 UNIT/ML VIAL SQ SCH ×2 (17:55→21:55)
--- NOTE | 2023-06-01 18:08 | P.HPIM ---
History of Present Illness H&P Date: 06/01/23 History of Presenting Illness: Patient is a pleasant 67-year-old male with a past medical history of CAD, hypertension, hyperlipidemia, type II ily-htvlcek-zoehppvnp diabetes mellitus, and GERD. 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 Patient reports feeling fatigue with occasional dizziness/lightheadedness but currently denies having any complaints at this time including headache, lightheadedness, dizziness, chest pain, palpitations, shortness of breath, or experiencing any numbness/tingling/weakness/swelling in his extremities. Patient reports baseline minimal swelling in his lower extremities but denies any worsening over the past week. Patient reports that he follows with Dr. Graves. Upon arrival to our facility patient underwent full evaluation. Vital signs completed and reviewed. Blood pressure 170/80, heart rate 44, respiratory rate 18, temp 97.6F, SpO2 of 99% on room air. EKG completed showing sinus bradycardia at 41 bpm with a left bundle branch block (left bundle branch block is not a new finding and was noted on previous EKG completed 09/07/2019). Labs completed and reviewed. CBC, coagulation profile, and BMP were unremarkable. Liver profile normal findings. Magnesium slightly low at 1.6. Liver profile unremarkable. Troponin 0.020, and TSH 1.590.Echocardiogram completed showing an EF of 40-45% with mild to moderate left ventricular systolic global hypokinesis and moderate mitral and tricuspid regurgitation with moderate pulmonary hypertension. Patient being admitted under our services with consultation to cardiology with plans for pacemaker insertion tomorrow. Review of systems: Pertinent positives and negatives as discussed in HPI, a complete review of systems was performed and all other systems are negative. Physical exam: Vital signs reviewed and stable. General: Nontoxic, no distress and appears stated age. Derm: Skin warm and dry, normal coloration for ethnicity. Head: Atraumatic, normocephalic and symmetric. Eyes: EOMs intact, no lid lag, and anicteric sclera Mouth: no lip lesions, mucus membranes moist Cardiovascular: regular rate and rhythm with normal S1S2, no murmur, positive posterior tibial pulses bilaterally, and cap refill < 2 seconds. Lungs: Respirations even, regular, and unlabored on room air. Lungs CTA bilaterally, no rhonchi, no rales, no wheezing, and no accessory muscle usage. Abdominal: soft, nontender to palpation, no guarding, no appreciable org anomegaly Ext: ROM intact. No gross muscle atrophy, no edema, no contractures Neuro: Speech clear, face symmetrical and CN II-XII grossly intact with no noted focal neuro deficits Psych: Alert and oriented to person, place, time, and situation. Appropriate and pleasant affect. Assessment and Plan of Care: Symptomatic Bradycardia with a left bundle branch block Left ventricular global hypokinesis Mitral and tricuspid regurgitation Pulmonary hypertension History of CAD Hypertension Hyperlipidemia -Cardiology following, planning to take patient for pacemaker insertion tomorrow. -Echocardiogram completed showing an EF of 40-45% with mild to moderate left ventricular systolic global hypokinesis and moderate mitral and tricuspid regurgitation with moderate pulmonary hypertension. -Patient to remain on continuous Telemetry monitoring -Cardiac diet, NPO at midnight -Continue cardiac medication regimen with aspirin 81 mg daily, atorvastatin 80 mg daily, and lisinopril 10 mg daily. Type II qgr-ejctcny-hdoxxglxs diabetes mellitus -Hold glipizide, Trulicity, and metformin. Patient being placed on glycemic protocol with NovoLog sliding scale to maintain tight glycemic control throughout hospitalization. GERD Continue Protonix Data and imaging reviewed: Please see above detailed documentation in HPI CODE STATUS: Full code DVT prophylaxis: Heparin Anticipated discharge date: Clinical course to determine Anticipated discharge place: clinical course to determine Patient was seen independently by Nurse Practitioner. This document was prepared using [employer] dictation software. Please allow for errors in bleach boiler packer while rare they do occur. Daniel Allan NP rendered care for this patient independently, reviewed the findings and plan as documented in the note above. I did not physically speak with or examine the patient on this date. Past Medical History Past Medical History: Diabetes Mellitus, GERD/Reflux, Hyperlipidemia, Hypertension, Osteoarthritis (OA) Additional Past Medical History / Comment(s): chronic neck pain with "head tremors", wears LifeVest-will be getting defibrillator in future, mass on vocal cord per pt. History of Any Multi-Drug Resistant Organisms: None Reported Past Surgical History: No Surgical Hx Reported Additional Past Surgical History / Comment(s): throat lesions from HPV removed, pilonidal cyst removed Past Anesthesia/Blood Transfusion Reactions: No Reported Reaction Past Psychological History: Anxiety Smoking Status: Former smoker Past Alcohol Use History: Occasional Past Drug Use History: Marijuana - Past Family History Father Family Medical History: Diabetes Mellitus Medications and Allergies Home Medications Medication Instructions Recorded Confirmed Type glipiZIDE [Glucotrol] 10 mg PO DAILY 08/24/17 06/01/23 History lisinopriL [Zestril] 10 mg PO DAILY 08/24/17 06/01/23 History metFORMIN HCL ER [Glucophage XR] 1,000 mg PO BID 08/24/17 06/01/23 History Dulaglutide [Trulicity] 0.75 mg SQ TU 09/06/19 06/01/23 History Atorvastatin [Lipitor] 80 mg PO HS 08/30/20 06/01/23 History Aspirin EC [Ecotrin Low Dose] 81 mg PO DAILY 06/01/23 06/01/23 History Glucosam/Yaw-Msm1/C/Shon/Bosw 1 tab PO DAILY 06/01/23 06/01/23 History [Kxchzgdkeyj-Zljnngtoxsd-JIX Tb] Multivitamins, Thera [Multivitamin 1 tab PO DAILY 06/01/23 06/01/23 History (formulary)] [place]-3/Dha/Epa/Fish Oil [Fish Oil 1 cap PO DAILY 06/01/23 06/01/23 History 1,000 mg Softgel] Omeprazole [PriLOSEC] 20 mg PO DAILY PRN 06/01/23 06/01/23 History Testosterone Cypionate 100 mg IM Q14D 06/01/23 06/01/23 History [Depo-Testosterone] Allergies Allergy/AdvReac Type Severity Reaction Status Date / Time liraglutide [From Victoza] AdvReac Nausea & Verified 06/01/23 12:02 Vomiting/Weakness Physical Exam Vitals: Vital Signs Temp Pulse Resp BP Pulse Ox 06/01/23 14:00 39 L 18 155/65 97 06/01/23 13:30 37 L 18 152/66 96 06/01/23 13:00 37 L 16 156/67 97 06/01/23 12:00 41 L 18 147/61 06/01/23 11:30 40 L 16 161/74 96 06/01/23 11:00 40 L 18 150/70 96 06/01/23 10:40 40 L 18 150/70 99 06/01/23 09:40 97.6 F 44 L 18 170/80 Intake and Output 06/01/23 06/01/23 06/01/23 06:59 14:59 22:59 Other: Weight 87.09 kg Results CBC & Chem 7: 06/01/23 11:44 06/01/23 11:44 Labs: Abnormal Lab Results - Last 24 Hours (Table) 06/01/23 06/01/23 Range/Units 11:44 11:44 Lymphocytes # 0.8 L (1.0-4.8) k/uL Glucose 123 H (74-99) mg/dL
[2023-06-01] MEDS: MAGNESIUM SULFATE-D5W PMX 1 GM in DEXTROSE/WATER 1 100ML.BAG IVPB SCH ×2 (18:56→21:52)
--- NOTE | 2023-06-01 20:50 | CONS ---
CONSULTATION HISTORY OF PRESENT ILLNESS: Nikolas is a 67-year-old gentleman with history of coronary artery disease, status post angioplasty of circumflex coronary artery in 2019, in the setting of a ipz-AJ-jzvmveq elevation HI, presented to our office for a Lexiscan. He has underlying left bundle branch block, but his heart rate usually was in the 70s, that he was found to have a heart rate in the 30s. His Coreg had been stopped for nearly 36 hours at this point. The patient's EKG shows what appears like a second-degree heart block and at times, sinus with nonconducted PACs. I made him walk on a treadmill. He walked for about 1.5 minutes, became very short of breath, fatigue, tired and dizzy showing chronotropic incompetence. Due to his conduction abnormality, left bundle branch block, and symptomatic bradycardia with chronotropic incompetence, I am sending the patient to hospital to get an echocardiogram to document his LV function, check a TSH, renal functions, and schedule him for a permanent pacemaker. I spoke to Dr. Coelho who is going to perform this tomorrow. In the event that the LV function is diminished, he may need a Bi-V AICD. The patient states that over the last 2 months, he has been feeling progressively more fatigued and tired. He normally walks his dog which he was able to do well and now has not been able to. He has an ejection fraction of 45% based on an echocardiogram done several years ago. PAST MEDICAL HISTORY: Significant for coronary artery disease, status post angioplasty; hypertension; dyslipidemia; diabetes. CURRENT MEDICATIONS: Include, 1. Amlodipine 10 mg daily. 2. Atorvastatin 80 daily. 3. Glipizide. 4. Lisinopril 10 daily. 5. Aspirin. 6. Metformin. 7. Trulicity. 8. Omeprazole. FAMILY HISTORY: Negative for premature coronary artery disease. SOCIAL HISTORY: Negative for current smoking, EtOH abuse, or drug abuse. REVIEW OF SYSTEMS: HEENT: Unremarkable. CARDIAC: As described above. RESPIRATORY: As described above. GI: Negative. GENITOURINARY: Negative. ALLERGY/IMMUNOLOGY: Negative. SKIN: Negative. MUSCULOSKELETAL: Negative. ENDOCRINE/DERM: Negative. CONSTITUTIONAL: Negative. ONCOLOGICAL: Negative. MANAGER EQUIPMENT: Negative. Rest of the system review is not relevant. PHYSICAL EXAMINATION: GENERAL: Comfortable at rest. Heart rate is around 38 beats per minute. Blood pressure is 150/60, respiratory rate is 18. NECK: There is no jugular venous distention. Carotid upstroke is normal. There are no bruits. CHEST: Reveals good air entry bilaterally. HEART: Reveals first and second heart sounds. Systolic murmur at the apex. ABDOMEN: Soft. EXTREMITIES: Did not reveal any edema. Peripheral pulses are felt. ASSESSMENT AND PLAN: 1. Symptomatic bradycardia with documented chronotropic incompetence on the treadmill. 2. Coronary artery disease, status post prior angioplasty. 3. Hypertension. 4. Diabetes. 5. Dyslipidemia. PLAN: I will send the patient to hospital. He will be admitted to the observation care unit after obtaining an echo, TSH, permanent pacemaker tomorrow with Dr. Coelho. KATJA / JOYCEN: [id number] /
[2023-06-01 21:52] LABS: Glucose,Whole Blood 171 mg/dL (70-110)
[2023-06-01] MEDS: ATORVASTATIN 80 MG TAB PO SCH (21:52)
[2023-06-02] MEDS: HEPARIN SODIUM,PORCINE 5,000 UNIT/ML 1 ML VIAL SQ SCH ×4 (00:23→22:43)
[2023-06-02 05:48] LABS: Glucose,Whole Blood 129 mg/dL (70-110)
[2023-06-02] MEDS: PANTOPRAZOLE 40 MG TABLET PO SCH (05:57)
[2023-06-02] MEDS: MULTIVITAMINS, THERA 1 EACH TAB PO SCH (05:58)
[2023-06-02] MEDS: INSULIN ASPART (NovoLOG) 100 UNIT/ML VIAL SQ SCH ×4 (05:58→20:23)
[2023-06-02] MEDS: ASPIRIN 81 MG PO SCH (05:58)
[2023-06-02] MEDS: lisinopriL 10 MG TAB PO SCH (05:58)
[2023-06-02] MEDS: SODIUM CHLORIDE 0.9% 1,000 ML IV SCH ×2 (05:58→06:00)
[2023-06-02] MEDS ORDERED: CLINDAMYCIN 600 MG in DEXTROSE 5% IN WATER 50 ML IVPB STA ×2 (09:22)
[2023-06-02] MEDS ORDERED: CLINDAMYCIN 600 MG in SODIUM CHLORIDE 0.9% IRRIG BTL 250 ML IRRIGATION ONE (09:23)
[2023-06-02 11:47] VITALS: RESP 16
--- NOTE | 2023-06-02 13:11 | P.PN ---
Subjective Progress Note Date: 06/02/23 Hospital course: Patient is a pleasant 67-year-old male with a past medical history of CAD, hypertension, hyperlipidemia, type II xzx-zvslbhf-ikmyaukti diabetes mellitus, and GERD. 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 Patient reports feeling fatigue with occasional dizziness/lightheadedness but currently denies having any complaints at this time including headache, lightheadedness, dizziness, chest pain, palpitations, shortness of breath, or experiencing any numbness/tingling/weakness/swelling in his extremities. Patient reports baselin e minimal swelling in his lower extremities but denies any worsening over the past week. Patient reports that he follows with Dr. Graves. Upon arrival to our facility patient underwent full evaluation. Vital signs completed and reviewed. Blood pressure 170/80, heart rate 44, respiratory rate 18, temp 97.6F, SpO2 of 99% on room air. EKG completed showing sinus bradycardia at 41 bpm with a left bundle branch block (left bundle branch block is not a new finding and was noted on previous EKG completed 09/07/2019). Labs completed and reviewed. CBC, coagulation profile, and BMP were unremarkable. Liver profile normal findings. Magnesium slightly low at 1.6. Liver profile unremarkable. Troponin 0.020, and TSH 1.590.Echocardiogram completed showing an EF of 40-45% with mild to moderate left ventricular systolic global hypokinesis and moderate mitral and tricuspid regurgitation with moderate pulmonary hypertension. Patient was admitted under our services with consultation to cardiology with plans for pacemaker insertion later today. Physical exam: Pt seen and fully evaluated at bedside this morning. Patient was resting comfortably Patient is awaiting to be taken down for pacemaker placement. He is currently free from any needs, concerns, or complaints. Vital signs reviewed and stable. General: Nontoxic, no distress and appears stated age. Derm: Skin warm and dry, normal coloration for ethnicity. Head: Atraumatic, normocephalic and symmetric. Eyes: EOMs intact, no lid lag, and anicteric sclera Mouth: no lip lesions, mucus membranes moist Cardiovascular: regular rate and rhythm with normal S1S2, no murmur, positive posterior tibial pulses bilaterally, and cap refill < 2 seconds. Lungs: Respirations even, regular, and unlabored on room air. Lungs CTA bilater ally, no rhonchi, no rales, no wheezing, and no accessory muscle usage. Abdominal: soft, nontender to palpation, no guarding, no appreciable organomegaly Ext: ROM intact. No gross muscle atrophy, no edema, no contractures Neuro: Speech clear, face symmetrical and CN II-XII grossly intact with no noted focal neuro deficits Psych: Alert and oriented to person, place, time, and situation. Appropriate and pleasant affect. Assessment and Plan of Care: Symptomatic Bradycardia with a left bundle branch block Left ventricular global hypokinesis Mitral and tricuspid regurgitation Pulmonary hypertension History of CAD Hypertension Hyperlipidemia -Cardiology following, planning to take patient for pacemaker insertion later today -Echocardiogram completed showing an EF of 40-45% with mild to moderate left ventricular systolic global hypokinesis and moderate mitral and tricuspid regurgitation with moderate pulmonary hypertension. -Patient to remain on continuous Telemetry monitoring -NPOuntil completion of pacemaker insertion then may advance to cardiac diet. -Continue cardiac medication regimen with aspirin 81 mg daily, atorvastatin 80 mg daily, and lisinopril 10 mg daily. Type II sev-avcdnks-cfubshame diabetes mellitus with a hemoglobin A1c of 8%. -Hold glipizide, Trulicity, and metformin. Patient being placed on glycemic protocol with NovoLog sliding scale to maintain tight glycemic control throughout hospitalization. GERD Continue Protonix Data and imaging reviewed: Vital signs reviewed and stable. Blood pressure 147/74, heart rate 39, respiratory rate 16, temp 98.1F, SpO2 of 95% on room air. CODE STATUS: Full code DVT prophylaxis: Heparin Anticipated discharge date: Clinical course to determine Anticipated discharge place: clinical course to determine Patient was seen independently by Nurse Practitioner. This document was prepared using [employer] dictation software. Please allow for errors in vegetable packer while rare they do occur. Daniel Allan NP rendered care for this patient independently, reviewed the findings and plan as documented in the note above. I did not physically speak with or examine the patient on this date. Objective - Vital Signs Vital signs: Vital Signs Temp 98.1 F 06/02/23 06:52 Pulse 38 L 06/02/23 11:27 Resp 16 06/02/23 11:27 BP 168/73 06/02/23 11:27 Pulse Ox 97 06/02/23 11:27 FiO2 Intake & Output 06/01/23 06/02/23 06/02/23 18:59 06:59 18:59 Intake Total 1340 Balance 1340 Weight 87.09 kg 87.09 kg Intake: Intake, IV Titration 800 Amount Magnesium Sulfate-D5w Pmx 200 1 gm In Dextrose/Water 1 100ml.bag @ 100 mls/hr IVPB Q1H [facility] Rx#: [id number] Sodium Chloride 0.9% 1, 600 000 ml @ 50 mls/hr IV . Q20H [facility] Rx#:[id number] Oral 540 Other: Voiding Method Toilet # Voids 3 - Labs CBC & Chem 7: 06/01/23 11:44 06/01/23 11:44 Labs: Abnormal Lab Results - Last 24 Hours (Table) 06/01/23 06/01/23 06/02/23 Range/Units 17:49 21:51 05:45 POC Glucose (mg/dL) 193 H 171 H 129 H (70-110) mg/dL Hemoglobin A1c (<=6.0) % 06/02/23 Range/Units 07:45 POC Glucose (mg/dL) (70-110) mg/dL Hemoglobin A1c 8.0 H (<=6.0) %
[2023-06-02] MEDS ORDERED: IV FLUID CONTINUATION 1,000 ML IV ONE (13:30)
[2023-06-02] MEDS ORDERED: SODIUM CHLORIDE 0.9% 500 ML 500 ML IV ONE (13:30)
[2023-06-02] MEDS ORDERED: SODIUM CHLORIDE 0.9% 1,000 ML IV ONE (13:30)
[2023-06-02] MEDS ORDERED: IOPAMIDOL-370 100ML BTL IVP ONE (13:30)
[2023-06-02] MEDS: fentaNYL (PF) 50 MCG/1 ML VIAL IVP ONE ×2 (13:45→13:52)
[2023-06-02] MEDS ORDERED: MIDAZOLAM 2 MG/2 ML VIAL IVP ONE ×2 (13:45→13:52)
[2023-06-02] MEDS ORDERED: LIDOCAINE 1% INJ 10MG/ML (20 ML MDV) SQ ONE (13:48)
--- NOTE | 2023-06-02 15:06 | P.PCN ---
Description of Procedure: CARDIOLOGY PROCEDURE NOTE Fuel Attendant: Dr. Jerry Coelho Procedure performed: Insertion dual chamber permanent pacemaker Site: Left subclavian Indications: Second-degree type II AV block, symptomatic bradycardia, chronotropic incompetence Complications: None Blood Loss: Minimal Description of Procedure: After the risks, benefits, and alternatives of the above-mentioned procedure was explained in detail with the patient, informed consent was obtained. The patient was taken to the cardiac catheterization suite where the left subclavian area was sterily prepped and draped in the usual fashion. One percent lidocaine was used to anesthetize the left subclavian area. Twenty milliliters of Isoview 370 contrast was injected into the left antecubital vein to allow for direct visualization of the left subclavian vein under fluoroscopy. A 1.5 inch incision was made utilizing a #15 blade in the left subclavian site. Hemostasis was made complete. Electrocautery along with digital blunt dissection was utilized to dissect to the level of the pectoralis muscle fascia and create a pocket large enough to accommodate the generator. A thin walled micro puncuture needle was used to cannulate the left subclavian vein. A guide-wire was inserted through the needle into the vascular lumen under fluoroscopic guidance. The needle was removed. Another thin walled micr puncture needle was used to again cannulate the left subclavian vein. A guide-wire was inserted through the needle into the vascular lumen under fluoroscopic guidance. The needle was removed and both guide-wires were attached to the field. A venous sheath and dilator were advanced over the guidewire into the vascular lumen under fluoroscopic guidance. The dilator and guidewire were then removed. A right ventricular bipolar lead was inserted into the sheath and advanced under fluoroscopic guidance into the right ventricle under fluoroscopic guidance. Adequate sensing and pacing thresholds were achieved and the lead was screwed into place in the RV apex. The sheath was then torn away. The lead collar was advanced and anchored into place utilizing #0 silk suture. Next, another venous sheath and dilator were advanced under fluoroscopic guidance into the vascular lumen over the guidewire. After removal of the dilator and guidewire, a right atrial bipolar lead was inserted into this sheath and advanced under fluoroscopic guidance into the right atrium. The lead was positioned into the right atrial appendage. Adequate sensing and pacing thresholds were then achieved with patient being in Aflutter at the time and the lead was screwed into place. The sheath was then torn away. The lead collar was advanced and anchored into place utilizing #0 silk suture. The leads were then inserted into the appropriate position into the generator. They were then secured with the setscrew provided. The leads and generator were inserted into the pocket with the leads posterior. The subcutaneous tissue was approximated utilizing #2.0 and 3.0 vicryl in an interrupted stitch fashion. The dermal layer was approximated utilizing #4.0 vicryl. The area was cleansed with sterile saline and dried. A sterile 4x4 dressing was applied and the patient was transferred to the post catheterization holding area in stable and satisfactory condition. The patient tolerated the procedure well. Generator Data Transportation Coordinator: [employer] Brand: [id number] Brimley XT DR MRI Model #: W1DR01 Serial#: [id number] Right Atrial Bipolar Lead Data: Type: Active fixation lead Transportation Coordinator: [employer] Model#: 5076-52 Serial Number: [id number] Right Ventricular Bipolar Lead Data: Type: Active fixation lead Transportation Coordinator: [employer] Model #: 5076-58 Serial #: [id number] Stimulation Thresholds: Right atrial bipolar lead pacing and sensing thresholds Voltage: 0.75 Impedance: 646 ohms P-wave sensin.8 mV Right Ventricular bipolar lead pacing and sensing thresholds Pulse Width: 0.4ms Voltage: 1.0 volts Impedance: 665 ohms R-wave sensin.7 mV Parameter Setting: Pacing mode is DDDR Lower rate 60 bpm Upper rate 130 bpm Impressions: 1. Successful implantation of a dual chamber permanent pacemaker in the left pectoral site. Plan: 1. Routine post procedure care will be instituted as well as outpatient follow- up surveillance.
--- NOTE | 2023-06-02 15:49 | XR ---
EXAMINATION TYPE: XR chest 1V portable DATE OF EXAM: 06/02/2023 COMPARISON: 02/19/2018. HISTORY: Lead placement check. TECHNIQUE: Single frontal view of the chest is obtained. IMPRESSION: The lungs are clear. There is no pneumothorax. The cardiac silhouette and pulmonary vessels are within normal limits. There is a left-sided pacemaker generator with leads overlying the right atrium and right ventricle.
[2023-06-02] MEDS: ACETAMINOPHEN TAB 325 MG TAB PO PRN ×2 (16:24→22:42)
[2023-06-02 16:52] LABS: Glucose,Whole Blood 144 mg/dL (70-110)
[2023-06-02 19:59] LABS: Glucose,Whole Blood 222 mg/dL (70-110)
[2023-06-02] MEDS: ATORVASTATIN 80 MG TAB PO SCH (20:23)
[2023-06-03] MEDS: SODIUM CHLORIDE 0.9% 1,000 ML IV SCH ×2 (04:21)
[2023-06-03 04:37] VITALS: TEMP 98
[2023-06-03 06:25] LABS: Glucose,Whole Blood 129 mg/dL (70-110)
[2023-06-03] MEDS: INSULIN ASPART (NovoLOG) 100 UNIT/ML VIAL SQ SCH ×2 (06:29→12:11)
[2023-06-03] MEDS: ACETAMINOPHEN TAB 325 MG TAB PO PRN ×2 (06:39→12:58)
--- NOTE | 2023-06-03 06:53 | PN ---
PROGRESS NOTE SUBJECTIVE: Mr. Haines is here with a 2:1 heart block with wide QRS. He is going for permanent pacemaker today. Echo revealed fair systolic function. OBJECTIVE: VITALS: S1, S2 heard normally. Bradycardia noted. LUNGS: Clear. ABDOMEN: Unchanged. EXTREMITIES: Lower extremity exam unchanged. PLAN: To proceed with a permanent pacemaker. Dr. Coelho is doing the procedure later on today. MMODL / IJN: [id number] /
--- NOTE | 2023-06-03 07:44 | XR ---
EXAMINATION TYPE: XR chest 2V DATE OF EXAM: 06/03/2023 6:30 AM CLINICAL INDICATION:Male, 67 years old with history of Lead placement check; COMPARISON: Chest radiograph from one day prior. TECHNIQUE: XR chest 2V Frontal and lateral views of the chest. FINDINGS: Lungs/Pleura: There is no evidence of pleural effusion, focal consolidation, or pneumothorax. Pulmonary vascularity: Unremarkable. Heart/mediastinum: Cardiomediastinal silhouette is unremarkable. Two lead cardiac conduction device o verlying the left hemithorax with lead tips projecting over the right ventricle and right atrium. Musculoskeletal: No acute osseous pathology. Other findings: None IMPRESSION: 1. Two lead cardiac conduction device overlying the left hemithorax with lead tips projecting over t he right ventricle and right atrium. 2. No acute cardiopulmonary disease/process. 3.
[2023-06-03] MEDS: HEPARIN SODIUM,PORCINE 5,000 UNIT/ML 1 ML VIAL SQ SCH (08:28)
[2023-06-03] MEDS: lisinopriL 10 MG TAB PO SCH (08:28)
[2023-06-03] MEDS: PANTOPRAZOLE 40 MG TABLET PO SCH (08:28)
[2023-06-03] MEDS: ASPIRIN 81 MG PO SCH (08:29)
[2023-06-03] MEDS: MULTIVITAMINS, THERA 1 EACH TAB PO SCH (08:29)
[2023-06-03 10:32] LABS: HCT 38.6 % (39.0-53.0); HGB 12.2 gm/dL (13.0-17.5); Hypochromasia Moderate; MCH 28.8 pg (25.0-35.0); MCHC 31.6 g/dL (31.0-37.0); MCV 91.2 fL (80.0-100.0); Mean Platelet Volume 7.8; Platelet Count 179 k/uL (150-450); RBC 4.24 m/uL (4.30-5.90); WBC 6.1 k/uL (3.8-10.6)
[2023-06-03 11:18] LABS: Glucose,Whole Blood 279 mg/dL (70-110)
[2023-06-03 11:27] VITALS: BP 152/84; PULSE 79
--- NOTE | 2023-06-03 12:22 | P.DS ---
Providers Date of admission: 06/01/23 12:48 Expected date of discharge: 06/03/23 Attending physician: Sylvester Manuel MD Consults: 06/01/23 12:48 Consult Physician Routine Consulting Provider: Mayelin Graves Consult Reason/Comments: lashon Do you want consulting provider notified?: Yes Primary care physician: [facility] Course: 67-year-old male with a past medical history of CAD, hypertension, hyperlipidemia, type II ckc-sxrdwtn-etcoqzwzf diabetes mellitus, and GERD. 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 In the ED he underwent extensive evaluation: Blood pressure 170/80, heart rate 44, respiratory rate 18, temp 97.6F, SpO2 of 99% on room air. EKG completed showing sinus bradycardia at 41 bpm with a left bundle branch block (left bundle branch block is not a new finding and was noted on previous EKG completed 09/07/2019). CBC, coagulation profile, and BMP were unremarkable. Liver profile normal findings. Magnesium slightly low at 1.6. Troponin 0.020. TSH 1.590. Echocardiogram completed showing an EF of 40-45% with mild to moderate left ventricular systolic global hypokinesis and moderate mitral and tricuspid regurgitation with moderate pulmonary hypertension. Patient was admitted under our services with consultation to cardiology with plans for pacemaker insertion. Pacemaker successfully inserted 06/02. 06/03 Patient was seen and examined. Reports soreness at the site of pacemaker. No complaints. Per RN, Cardiology cleared the patient for discharge. Pertinent studies EKG Echo CXR Pertinent procedures Pacemaker. General: non toxic, no distress, appears at stated age Derm: warm, dry Head: atraumatic, normocephalic, symmetric Eyes: EOMI, no lid lag, anicteric sclera Cardiovascular: S1S2 reg, no murmur Lungs: CTA bilateral, no rhonchi, no rales , no accessory muscle use Ext: no gross muscle atrophy, no edema, no contractures, L pacemaker dressing c/d/i Neuro: no focal neuro deficits Psych: Alert, oriented, appropriate affect Discharge Diagnosis: Second-degree type II AV block: Dual chamber permanent pacemaker 06/02 Left ventricular global hypokinesis Mitral and tricuspid regurgitation Pulmonary hypertension History of CAD: Aspirin 81 mg daily, Atorvastatin 80 mg daily Hypertension Hyperlipidemia Type II bxo-lgxvdga-gtjslqcup diabetes mellitus with a hemoglobin A1c of 8% GERD This complex discharge took 35 minutes to complete. Patient Condition at Discharge: Stable Plan - Discharge Summary Discharge Rx Participant: No New Discharge Prescriptions: Continue glipiZIDE [Glucotrol] 10 mg PO DAILY lisinopriL [Zestril] 10 mg PO DAILY metFORMIN HCL ER [Glucophage XR] 1,000 mg PO BID Dulaglutide [Trulicity] 0.75 mg SQ TU Atorvastatin [Lipitor] 80 mg PO HS [place]-3/Dha/Epa/Fish Oil [Fish Oil 1,000 mg Softgel] 1 cap PO DAILY Omeprazole [PriLOSEC] 20 mg PO DAILY PRN PRN Reason: Gi Upset Testosterone Cypionate [Depo-Testosterone] 100 mg IM Q14D Multivitamins, Thera [Multivitamin (formulary)] 1 tab PO DAILY Glucosam/Yaw-Msm1/C/Shon/Bosw [Rfnxxausftw-Nwlaodiydas-XQT Tb] 1 tab PO DAILY Aspirin EC [Ecotrin Low Dose] 81 mg PO DAILY Discharge Medication List glipiZIDE [Glucotrol] 10 mg PO DAILY 08/24/17 [History] lisinopriL [Zestril] 10 mg PO DAILY 08/24/17 [History] metFORMIN HCL ER [Glucophage XR] 1,000 mg PO BID 08/24/17 [History] Dulaglutide [Trulicity] 0.75 mg SQ TU 09/06/19 [History] Atorvastatin [Lipitor] 80 mg PO HS 08/30/20 [History] Aspirin EC [Ecotrin Low Dose] 81 mg PO DAILY 06/01/23 [History] Glucosam/Yaw-Msm1/C/Shon/Bosw [Ujgnrbpdqjo-Dvyhfptjglz-ZYW Tb] 1 tab PO DAILY 06/01/23 [History] Multivitamins, Thera [Multivitamin (formulary)] 1 tab PO DAILY 06/01/23 [History] [place]-3/Dha/Epa/Fish Oil [Fish Oil 1,000 mg Softgel] 1 cap PO DAILY 06/01/23 [History] Omeprazole [PriLOSEC] 20 mg PO DAILY PRN 06/01/23 [History] Testosterone Cypionate [Depo-Testosterone] 100 mg IM Q14D 06/01/23 [History] Follow up Appointment(s)/Referral(s): Huseyin Amato MD [Primary Care Provider] - 1-2 days Jerry Coelho DO [STAFF PHYSICIAN] - 1 Week Patient Instructions/Handouts: Moderate Sedation (DC), Fall Prevention (DC), Pacemaker (DC) Discharge Disposition: HOME SELF-CARE
[2023-06-03 12:44] LABS: ALT 25 U/L (4-49); AST 24 U/L (17-59); African American GFR (CKD) 88 (>60 ml/min/1.73 sqM); Albumin 3.5 g/dL (3.5-5.0); Alkaline Phosphatase 107 U/L (38-126); Anion Gap 11 mmol/L; Blood Urea Nitrogen 12 mg/dL (9-20); Calcium 8.5 mg/dL (8.4-10.2); Carbon Dioxide 22 mmol/L (22-30); Chloride 102 mmol/L (98-107); Glucose 317 mg/dL (74-99); Magnesium 1.8 mg/dL (1.6-2.3); Non-African American GFR(CKD) 76 (>60 ml/min/1.73 sqM); Potassium 4.4 mmol/L (3.5-5.1); Sodium 135 mmol/L (137-145); Total Bilirubin 0.7 mg/dL (0.2-1.3); Total Protein 6.1 g/dL (6.3-8.2)
--- NOTE | 2023-06-03 14:41 | P.PN ---
Subjective Progress Note Date: 06/03/23 This is Reinier Sterling NP, I'm dictating on behalf of Dr. Noel's H&P and A&P. Patient was interviewed and examined. Patient is a pleasant 67-year-old male who presented to the hospital with bradycardia and is currently status post pacemaker implantation yesterday. Patient is doing well today. The incision site is clean, dry, and intact. Interrogation shows good sensing and capture, with primarily ventricular pacing. A change this morning reports that he feels good, greater than he did prior to the procedure. His heart rate is currently being paced appropriately. He is ready to go home today. GENERAL: Well-appearing, well-nourished and in no acute distress. NECK: Supple without JVD or thyromegaly. LUNGS: Breath sounds clear to auscultation bilaterally. Respiration equal and unlabored. No wheezes, rales or rhonchi. HEART: Regular rate and rhythm without murmurs, rubs or gallops. S1 and S2 heard. EXTREMITIES: Normal range of motion, no edema. No clubbing or cyanosis. Peripheral pulses intact and strong. VITALS: Temp 98.0, pulse 81, respirations 16, blood pressure 143/80, O2 saturation 95% on room air TELEMETRY: Ventricularly paced rhythm LABS: White count 6.1, hemoglobin 12.2, platelets 179, sodium 135, potassium 4.4, BUN 12, creatinine 1.02, magnesium 1.8 IMPRESSION: 1. Symptom medical bradycardia with documented chronotropic incompetence on the treadmill 2. Coronary artery disease, status post prior angioplasty 3. Hypertension 4. Diabetes 5. Dyslipidemia 6. Status post pacemaker implantation PLAN: No current changes to medications recommended at this time. Blood pressure can be evaluated as an outpatient at his follow-up visit. Patient may be discharged home from a cardiology standpoint. Thank you for allowing us to participate in the care of this patient. Objective - Vital Signs Vital signs: Vital Signs Temp 98.0 F 06/03/23 08:18 Pulse 79 06/03/23 11:25 Resp 16 06/03/23 11:25 BP 152/84 06/03/23 11:25 Pulse Ox 97 06/03/23 11:25 FiO2 Intake & Output 06/02/23 06/03/23 06/03/23 18:59 06:59 18:59 Intake Total 274 10 240 Balance 274 10 240 Intake: IV 154 10 Invasive Line 1 10 Oral 120 240 Other: Voiding Method Toilet Toilet Toilet # Voids 1 - Labs CBC & Chem 7: 06/03/23 09:05 06/03/23 09:05 Labs: Abnormal Lab Results - Last 24 Hours (Table) 06/02/23 06/02/23 06/03/23 Range/Units 16:51 19:56 06:22 RBC (4.30-5.90) m/uL Hgb (13.0-17.5) gm/dL Hct (39.0-53.0) % Sodium (137-145) mmol/L Glucose (74-99) mg/dL POC Glucose (mg/dL) 144 H 222 H 129 H (70-110) mg/dL Total Protein (6.3-8.2) g/dL 06/03/23 06/03/23 06/03/23 Range/Units 09:05 09:05 11:16 RBC 4.24 L (4.30-5.90) m/uL Hgb 12.2 L (13.0-17.5) gm/dL Hct 38.6 L (39.0-53.0) % Sodium 135 L (137-145) mmol/L Glucose 317 H (74-99) mg/dL POC Glucose (mg/dL) 279 H (70-110) mg/dL Total Protein 6.1 L (6.3-8.2) g/dL
== END 2023-06-03 13:50 | disposition home or self-care (01) | DRG 244 ==
LOC: CATHEP 09:30 → 3SCARD 12:48
PROVIDERS: ADMIT Student in an Organized Health Care Education/Training Program; ATTEND Student in an Organized Health Care Education/Training Program
PROC: 0JH606Z Insertion of Pacemaker, Dual Chamber into Chest Subcutaneous Tissue and Fascia, Open Approach (ICD-10-PCS; principal; 2023-06-02 13:30)
PROC: 02HK3JZ Insertion of Pacemaker Lead into Right Ventricle, Percutaneous Approach (ICD-10-PCS; principal; 2023-06-02 13:30)
PROC: 02H63JZ Insertion of Pacemaker Lead into Right Atrium, Percutaneous Approach (ICD-10-PCS; principal; 2023-06-02 13:30)
DX: I44.1 Atrioventricular block, second degree (principal); I27.20 Pulmonary hypertension, unspecified; E11.9 Type 2 diabetes mellitus without complications; I44.7 Left bundle-branch block, unspecified; I08.1 Rheumatic disorders of both mitral and tricuspid valves; I45.89 Other specified conduction disorders; I25.10 Atherosclerotic heart disease of native coronary artery without angina pectoris; E78.5 Hyperlipidemia, unspecified; I10 Essential (primary) hypertension; K21.9 Gastro-esophageal reflux disease without esophagitis; F41.9 Anxiety disorder, unspecified; I25.2 Old myocardial infarction; G89.29 Other chronic pain; M54.2 Cervicalgia; M19.90 Unspecified osteoarthritis, unspecified site; Z79.82 Long term (current) use of aspirin; Z79.85 Long-term (current) use of injectable non-insulin antidiabetic drugs; Z79.84 Long term (current) use of oral hypoglycemic drugs; Z79.890 Hormone replacement therapy; Z79.899 Other long term (current) drug therapy; Z87.891 Personal history of nicotine dependence; Z92.3 Personal history of irradiation; Z85.89 Personal history of malignant neoplasm of other organs and systems; Z88.8 Allergy status to other drugs, medicaments and biological substances
CPT/HCPCS: 33208; 71045; 71046; 80053; 83036; 83735; 84100; 84443; 84484; 85025; 85027; 85610; 85730; 93005; 93306; 96365; 96366; 96372; 99291

== ENCOUNTER 2023-07-19 09:59 | Emergency (ER) | payer MEDICARE ==
--- NOTE | 2023-07-19 10:45 | ED ---
General Adult HPI - General Chief complaint: Upper Respiratory Infection Stated complaint: Neck/L Shoulder Pain, SOB Time Seen by Provider: 07/19/23 10:28 Source: patient, family, RN notes reviewed Mode of arrival: ambulatory Limitations: no limitations - History of Present Illness Initial comments: Patient is a 67-year-old male presenting to the ER with a chief complaint of weakness. Patient states for the past 2 weeks he has been extremely weak and shaky. Patient was seen by urgent care and diagnosed with otitis media and prescribed amoxicillin. Patient has been taking amoxicillin since Monday07/14/23, without improvement of his symptoms. Patient reports end of May he underwent a stress test and was found to have bradycardia. Pacemaker was placed by Dr. Herron. He is now endorsing shortness of breath and left ankle swelling. Patient denies any home O2 use, orthopnea, or exertional dyspnea. He does state he is having left shoulder and neck pain. He also states that he has a chest discomfort and feels a tightness/pressure sensation in his mid chest. He admits to recent cough and congestion and mild sore throat in the morning. Patient has past medical history significant for diabetes and hypertension. Patient states he has not been able to take his Trulicity due to medication being on backorder. He is on metformin and glipizide last dose the morning. Denies any headaches, double blurry vision, abdominal pain, nausea/vomiting, melena, constipation/diarrhea or urinary complaints. - Related Data Home Medications Medication Instructions Recorded Confirmed glipiZIDE [Glucotrol] 10 mg PO DAILY 08/24/17 06/01/23 lisinopriL [Zestril] 10 mg PO DAILY 08/24/17 06/01/23 metFORMIN HCL ER [Glucophage XR] 1,000 mg PO BID 08/24/17 06/01/23 Dulaglutide [Trulicity] 0.75 mg SQ TU 09/06/19 06/01/23 Atorvastatin [Lipitor] 80 mg PO HS 08/30/20 06/01/23 Aspirin EC [Ecotrin Low Dose] 81 mg PO DAILY 06/01/23 06/01/23 Glucosam/Yaw-Msm1/C/Shon/Bosw 1 tab PO DAILY 06/01/23 06/01/23 [Dkxcswosplt-Eqhsmnlwabf-NQI Tb] Multivitamins, Thera [Multivitamin 1 tab PO DAILY 06/01/23 06/01/23 (formulary)] [place]-3/Dha/Epa/Fish Oil [Fish Oil 1 cap PO DAILY 06/01/23 06/01/23 1,000 mg Softgel] Omeprazole [PriLOSEC] 20 mg PO DAILY PRN 06/01/23 06/01/23 Testosterone Cypionate 100 mg IM Q14D 06/01/23 06/01/23 [Depo-Testosterone] Allergies Allergy/AdvReac Type Severity Reaction Status Date / Time liraglutide [From Victoza] AdvReac Nausea & Verified 07/19/23 10:05 Vomiting/Weakness Review of Systems ROS Statement: Those systems with pertinent positive or pertinent negative responses have been documented in the HPI. ROS Other: All systems not noted in ROS Statement are negative. Past Medical History Past Medical History: Diabetes Mellitus, GERD/Reflux, Hyperlipidemia, Hypertension, Osteoarthritis (OA) Additional Past Medical History / Comment(s): chronic neck pain with "head tremors", wears LifeVest-will be getting defibrillator in future, mass on vocal cord per pt. 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 Absent: scleral icterus, conjunctival injection, periorbital swelling Pupils: Present: normal accommodation ENT exam: Present: normal exam, normal oropharynx, mucous membranes moist, TM's normal bilaterally (Cerumen bilaterally) Neck exam: Present: normal inspection. Absent: tenderness, meningismus, lymphadenopathy Respiratory exam: Present: normal lung sounds bilaterally. Absent: respiratory distress, wheezes, rales, rhonchi, stridor Cardiovascular Exam: Present: regular rate, normal rhythm, normal heart sounds. Absent: systolic murmur, diastolic murmur, rubs, gallop, clicks GI/Abdominal exam: Present: soft, tenderness (Mild epigastric tenderness), normal bowel sounds. Absent: distended, guarding, rebound, rigid Extremities exam: Present: pedal edema (Nonpitting edema bilaterally) Neurological exam: Present: alert, oriented X3, CN II-XII intact Psychiatric exam: Present: normal affect, normal mood Skin exam: Present: warm, dry, intact, normal color. Absent: rash Course Vital Signs 07/19/23 07/19/23 10:01 12:57 Temperature 97.6 F 98.2 F Pulse Rate 59 L 87 Respiratory 18 16 Rate Blood Pressure 125/78 112/81 O2 Sat by Pulse 97 97 Oximetry Medical Decision Making - Medical Decision Making Was pt. sent in by a medical professional or institution (, PA, DIRECTOR SOFTWARE DEVELOPMENT, urgent care, hospital, or penitentiary...) When possible be specific @ -No Did you speak to anyone other than the patient for history (EMS, parent, family, police, friend...)? What history was obtained from this source @ - providing some past medical history Did you review nursing and triage notes (agree or disagree)? Why? @ -I reviewed and agree with nursing and triage notes Were old charts reviewed (outside hosp., previous admission, EMS record, old EKG, old radiological studies, urgent care reports/EKG's, penitentiary records)? Report findings @ -No old charts were reviewed Differential Diagnosis (chest pain, altered mental status, abdominal pain women, abdominal pain men, vaginal bleeding, weakness, fever, dyspnea, syncope, headache, dizziness, GI bleed, back pain, seizure, CVA, palpatations, mental health, musculoskeletal)? @ -Differential Weakness: Hypoglycemia, shock, sepsis, hyponatremia, anemia, infection, MO, ETOH, adverse medicine reaction, overdose, stroke, this is not meant to be an all-inclusive list. EKG interpreted by me (3pts min.). @ -As above X-rays interpreted by me (1pt min.). @ -Chest x-ray interpreted me shows no acute process. CT interpreted by me (1pt min.). @ -None done U/S interpreted by me (1pt. min.). @ -None done What testing was considered but not performed or refused? (CT, X-rays, U/S, labs)? Why? @ -None What meds were considered but not given or refused? Why? @ -None Did you discuss the management of the patient with other professionals (professionals i.e. Dr., PA, DIRECTOR SOFTWARE DEVELOPMENT, lab, RT, psych nurse, social insurance adviser, tobacco stripper hand, teacher, biosecurity officer, case maker)? Give summary @ -No Was smoking cessation discussed for >3mins.? @ -No Was critical care preformed (if so, how long)? @ -No Were there social determinants of health that impacted care today? How? (Homelessness, low income, unemployed, alcoholism, drug addiction, transportation, low edu. Level, literacy, decrease access to med. care, skilled nursing, rehab)? @ -Backorder of prescribed medication, Trulicity. Was there de-escalation of care discussed even if they declined (Discuss DNR or withdrawal of care, Hospice)? DNR status @ -No What co-morbidities impacted this encounter? (DM, HTN, Smoking, COPD, CAD, Cancer, CVA, ARF, Chemo, Hep., AIDS, mental health diagnosis, sleep apnea, morbid obesity)? @ -Diabetes mellitus, hypertension Was patient admitted / discharged? Hospital course, mention meds given and route, prescriptions, significant lab abnormalities, going to OR and other pertinent info. @ -Discharge. Patient is a 67-year-old male presented to ER with chief complaint of weakness for 2 weeks. Patient had pacemaker placed by Dr. Herron 06-02-2023. Patient was also complaining of lower extremity edema. History and physical exam were comp leted. Vitals stable. Patient in no signs of acute distress. Bilateral nonpitting LE edema. Lung sounds clear to auscultation bilaterally. Labs obtained in the ER significant for hemoglobin 11.2, NA 128, glucose 359, ALT 52, alk phos 360. Troponin < 0.012. BNP 400. Urine showing 4+ glucose. Influenza, RSV, COVID negative. EKG without acute signs of infarct or ischemia. Chest x-ray interpreted by me shows no acute process. Patient also reported that he has been having difficulty obtaining Trulicity due to backorder at pharmacy. This has been going on for about 2 weeks about when patient's symptoms started. Advised patient to monitor his sugars closely and to follow- up with primary care in the next 1 to 2 days for current symptoms. Return parameters were discussed. Patient be discharged stable condition with follow- up to PCP. Patient and , at bedside, expressed understanding and agreement with care plan. Undiagnosed new problem with uncertain prognosis? @ -No Drug Therapy requiring intensive monitoring for toxicity (Heparin, Nitro, Insulin, Cardizem)? @ -No Were any procedures done? @ -No Diagnosis/symptom? @ -Hyperglycemia/weakness Acute, or Chronic, or Acute on Chronic? @ -Acute Uncomplicated (without systemic symptoms) or Complicated (systemic symptoms)? @ -Uncomplicated Side effects of treatment? @ -No Exacerbation, Progression, or Severe Exacerbation? @ -No Poses a threat to life or bodily function? How? (Chest pain, USA, MO, pneumonia, PE, COPD, DKA, ARF, appy, cholecystitis, CVA, Diverticulitis, Homicidal, Suicidal, threat to staff... and all critical care pts) @ -No - Lab Data Result diagrams: 07/19/23 10:59 07/19/23 10:59 Lab Results 07/19/23 07/19/23 07/19/23 Range/Units 10:59 10:59 10:59 WBC 6.7 (3.8-10.6) k/uL RBC 4.01 L (4.30-5.90) m/uL Hgb 11.2 L (13.0-17.5) gm/dL Hct 34.9 L (39.0-53.0) % MCV 87.0 (80.0-100.0) fL MCH 28.0 (25.0-35.0) pg MCHC 32.2 (31.0-37.0) g/dL RDW 15.9 H (11.5-15.5) % Plt Count 370 D (150-450) k/uL MPV 7.5 PT 10.7 (10.0-12.5) sec INR 1.0 (<1.2) APTT 23.9 (22.0-30.0) sec Sodium (137-145) mmol/L Potassium (3.5-5.1) mmol/L Chloride (98-107) mmol/L Carbon Dioxide (22-30) mmol/L Anion Gap mmol/L BUN (9-20) mg/dL Creatinine (0.66-1.25) mg/dL Est GFR (CKD-EPI)AfAm (>60 ml/min/1.73 sqM) Est GFR (CKD-EPI)NonAf (>60 ml/min/1.73 sqM) Glucose (74-99) mg/dL Calcium (8.4-10.2) mg/dL Phosphorus (2.5-4.5) mg/dL Magnesium (1.6-2.3) mg/dL Total Bilirubin (0.2-1.3) mg/dL AST (17-59) U/L ALT (4-49) U/L Alkaline Phosphatase (38-126) U/L Troponin I (0.000-0.034) ng/mL NT-Pro-B Natriuret Pep pg/mL Total Protein (6.3-8.2) g/dL Albumin (3.5-5.0) g/dL Amylase (30-110) U/L Lipase (23-300) U/L Urine Color Yellow Urine Appearance Clear (Clear) Urine pH 5.5 (5.0-8.0) Ur Specific [place] 1.019 (1.001-1.035) Urine Protein Negative (Negative) Urine Glucose (UA) 4+ H (Negative) Urine Ketones Negative (Negative) Urine Blood Negative (Negative) Urine Nitrite Negative (Negative) Urine Bilirubin Negative (Negative) Urine Urobilinogen <2.0 (<2.0) mg/dL Ur Leukocyte Esterase Negative (Negative) Influenza Type A (PCR) (Not Detectd) Influenza Type B (PCR) (Not Detectd) RSV (PCR) (Not Detectd) SARS-CoV-2 (PCR) (Not Detectd) 07/19/23 07/19/23 07/19/23 Range/Units 10:59 10:59 10:59 WBC (3.8-10.6) k/uL RBC (4.30-5.90) m/uL Hgb (13.0-17.5) gm/dL Hct (39.0-53.0) % MCV (80.0-100.0) fL MCH (25.0-35.0) pg MCHC (31.0-37.0) g/dL RDW (11.5-15.5) % Plt Count (150-450) k/uL MPV PT (10.0-12.5) sec INR (<1.2) APTT (22.0-30.0) sec Sodium 128 L (137-145) mmol/L Potassium 4.8 (3.5-5.1) mmol/L Chloride 101 (98-107) mmol/L Carbon Dioxide 19 L (22-30) mmol/L Anion Gap 8 mmol/L BUN 24 H (9-20) mg/dL Creatinine 0.89 (0.66-1.25) mg/dL Est GFR (CKD-EPI)AfAm >90 (>60 ml/min/1.73 sqM) Est GFR (CKD-EPI)NonAf 89 (>60 ml/min/1.73 sqM) Glucose 359 H (74-99) mg/dL Calcium 8.9 (8.4-10.2) mg/dL Phosphorus 3.6 (2.5-4.5) mg/dL Magnesium 1.6 (1.6-2.3) mg/dL Total Bilirubin 1.0 (0.2-1.3) mg/dL AST 44 (17-59) U/L ALT 52 H (4-49) U/L Alkaline Phosphatase 360 H (38-126) U/L Troponin I <0.012 (0.000-0.034) ng/mL NT-Pro-B Natriuret Pep 400 pg/mL Total Protein 6.4 (6.3-8.2) g/dL Albumin 3.5 (3.5-5.0) g/dL Amylase (30-110) U/L Lipase (23-300) U/L Urine Color Urine Appearance (Clear) Urine pH (5.0-8.0) Ur Specific [place] (1.001-1.035) Urine Protein (Negative) Urine Glucose (UA) (Negative) Urine Ketones (Negative) Urine Blood (Negative) Urine Nitrite (Negative) Urine Bilirubin (Negative) Urine Urobilinogen (<2.0) mg/dL Ur Leukocyte Esterase (Negative) Influenza Type A (PCR) Not Detected (Not Detectd) Influenza Type B (PCR) Not Detected (Not Detectd) RSV (PCR) Not Detected (Not Detectd) SARS-CoV-2 (PCR) Not Detected (Not Detectd) 07/19/23 Range/Units 10:59 WBC (3.8-10.6) k/uL RBC (4.30-5.90) m/uL Hgb (13.0-17.5) gm/dL Hct (39.0-53.0) % MCV (80.0-100.0) fL MCH (25.0-35.0) pg MCHC (31.0-37.0) g/dL RDW (11.5-15.5) % Plt Count (150-450) k/uL MPV PT (10.0-12.5) sec INR (<1.2) APTT (22.0-30.0) sec Sodium (137-145) mmol/L Potassium (3.5-5.1) mmol/L Chloride (98-107) mmol/L Carbon Dioxide (22-30) mmol/L Anion Gap mmol/L BUN (9-20) mg/dL Creatinine (0.66-1.25) mg/dL Est GFR (CKD-EPI)AfAm (>60 ml/min/1.73 sqM) Est GFR (CKD-EPI)NonAf (>60 ml/min/1.73 sqM) Glucose (74-99) mg/dL Calcium (8.4-10.2) mg/dL Phosphorus (2.5-4.5) mg/dL Magnesium (1.6-2.3) mg/dL Total Bilirubin (0.2-1.3) mg/dL AST (17-59) U/L ALT (4-49) U/L Alkaline Phosphatase (38-126) U/L Troponin I (0.000-0.034) ng/mL NT-Pro-B Natriuret Pep pg/mL Total Protein (6.3-8.2) g/dL Albumin (3.5-5.0) g/dL Amylase 47 (30-110) U/L Lipase 217 (23-300) U/L Urine Color Urine Appearance (Clear) Urine pH (5.0-8.0) Ur Specific [place] (1.001-1.035) Urine Protein (Negative) Urine Glucose (UA) (Negative) Urine Ketones (Negative) Urine Blood (Negative) Urine Nitrite (Negative) Urine Bilirubin (Negative) Urine Urobilinogen (<2.0) mg/dL Ur Leukocyte Esterase (Negative) Influenza Type A (PCR) (Not Detectd) Influenza Type B (PCR) (Not Detectd) RSV (PCR) (Not Detectd) SARS-CoV-2 (PCR) (Not Detectd) - EKG Data -: EKG Interpreted by Me EKG Comments: EKG taken at 11: 11 shows a paced ventricular rhythm. Ventricular rate 94, AK interval 185, QRS duration 170, QT/QTc 380/432. - Radiology Data Radiology results: report reviewed, image reviewed Disposition Clinical Impression: Hyperglycemia, Weakness Disposition: HOME SELF-CARE Condition: Stable Instructions (If sedation given, give patient instructions): Diabetes and Exercise (ED) Additional Instructions: Please monitor your sugars closely. Follow-up with PCP in the next 1 to 2 days. Return to the ER for any new or worsening symptoms. Is patient prescribed a controlled substance at d/c from ED?: No Referrals: Huseyin Amato MD [Primary Care Provider] - 1-2 days Time of Disposition: 12:42
[2023-07-19 11:15] LABS: HCT 34.9 % (39.0-53.0); HGB 11.2 gm/dL (13.0-17.5); MCHC 32.2 g/dL (31.0-37.0); Mean Platelet Volume 7.5; RBC 4.01 m/uL (4.30-5.90); RDW 15.9 % (11.5-15.5); WBC 6.7 k/uL (3.8-10.6)
[2023-07-19 11:23] LABS: Platelet Count 370 k/uL (150-450)
[2023-07-19] MEDS: ACETAMINOPHEN TAB 500 MG TAB PO STA (11:24)
--- NOTE | 2023-07-19 11:45 | XR ---
EXAMINATION TYPE: XR chest 2V DATE OF EXAM: 07/19/2023 11:37 AM CLINICAL INDICATION:Male, 67 years old with history of dyspnea; COMPARISON: Chest radiographs from 06/03/2023 TECHNIQUE: XR chest 2V Frontal and lateral views of the chest. FINDINGS: Lungs/Pleura: There is flattening of the diaphragm with increased lucency of the lungs. No evidence o f pneumothorax, pleural effusion or focal consolidation. Pulmonary vascularity: Unremarkable. Heart/mediastinum: Cardiomediastinal silhouette is enlarged and stable. Two lead cardiac conduction d evice overlying the left hemithorax with lead tips projecting over the right ventricle and right atri um. Musculoskeletal: No acute osseous pathology. IMPRESSION: No acute cardiopulmonary disease/process.
[2023-07-19 11:53] LABS: ALT 52 U/L (4-49); AST 44 U/L (17-59); African American GFR (CKD) >90 (>60 ml/min/1.73 sqM); Albumin 3.5 g/dL (3.5-5.0); Alkaline Phosphatase 360 U/L (38-126); Anion Gap 8 mmol/L; Blood Urea Nitrogen 24 mg/dL (9-20); Calcium 8.9 mg/dL (8.4-10.2); Carbon Dioxide 19 mmol/L (22-30); Chloride 101 mmol/L (98-107); Glucose 359 mg/dL (74-99); Magnesium 1.6 mg/dL (1.6-2.3); Non-African American GFR(CKD) 89 (>60 ml/min/1.73 sqM); Phosphorus 3.6 mg/dL (2.5-4.5); Potassium 4.8 mmol/L (3.5-5.1); Sodium 128 mmol/L (137-145); Total Protein 6.4 g/dL (6.3-8.2)
[2023-07-19 12:04] LABS: Partial Thromboplastin Time 23.9 sec (22.0-30.0); Prothrombin Time 10.7 sec (10.0-12.5)
[2023-07-19 12:16] LABS: Appearance,Urine Clear (Clear); Bilirubin,Urine Negative (Negative); Blood,Urine Negative (Negative); Color,Urine Yellow; Glucose,Urine (UA) 4+ (Negative); Ketones,Urine Negative (Negative); Leukocyte Esterase,Urine Negative (Negative); Nitrite,Urine Negative (Negative); PH, Urine 5.5 (5.0-8.0); Protein,Urine Negative (Negative); Specific Gravity,Urine 1.019 (1.001-1.035); Urobilinogen,Urine <2.0 mg/dL (<2.0)
[2023-07-19 12:17] LABS: NT-Pro-B-Type Natriuretic Pept 400 pg/mL
[2023-07-19 12:25] LABS: Amylase 47 U/L (30-110); Lipase 217 U/L (23-300)
[2023-07-19 13:14] VITALS: BP 112/81; PULSE 87; RESP 16; TEMP 98.2
== END 2023-07-19 12:59 | disposition home or self-care (01) ==
LOC: EC 09:59
DX: R53.1 Weakness (principal); E11.65 Type 2 diabetes mellitus with hyperglycemia; I10 Essential (primary) hypertension; E78.5 Hyperlipidemia, unspecified; M19.90 Unspecified osteoarthritis, unspecified site; F41.9 Anxiety disorder, unspecified; K21.9 Gastro-esophageal reflux disease without esophagitis; F12.90 Cannabis use, unspecified, uncomplicated; Z87.891 Personal history of nicotine dependence; Z79.84 Long term (current) use of oral hypoglycemic drugs; Z79.899 Other long term (current) drug therapy; Z79.82 Long term (current) use of aspirin; Z88.8 Allergy status to other drugs, medicaments and biological substances; Z20.822 Contact with and (suspected) exposure to COVID-19
CPT/HCPCS: 36415; 71046; 80053; 81003; 82150; 83690; 83735; 83880; 84100; 84484; 85027; 85610; 85730; 87636; 93005; 99285

== ENCOUNTER 2023-07-22 12:29 | Inpatient (IN) | payer MEDICARE ==
--- NOTE | 2023-07-22 13:14 | ED ---
General Adult HPI - General Chief complaint: Shortness of Breath Stated complaint: neck pain Time Seen by Provider: 07/22/23 12:55 Source: patient, RN notes reviewed, old records reviewed Mode of arrival: ambulatory Limitations: no limitations - History of Present Illness Initial comments: 67-year-old history of CAD, history of recent pacemaker, placed in May presenting with increased dyspnea and lower extremity swelling. Patient does report pain in his neck without known injury. He also states that his blood sugars have been running high. Denies cough. Denies central chest pain. - Related Data Home Medications Medication Instructions Recorded Confirmed glipiZIDE [Glucotrol] 10 mg PO DAILY 08/24/17 07/22/23 lisinopriL [Zestril] 10 mg PO DAILY 08/24/17 07/22/23 metFORMIN HCL ER [Glucophage XR] 1,000 mg PO BID 08/24/17 07/22/23 Atorvastatin [Lipitor] 80 mg PO HS 08/30/20 07/22/23 Aspirin EC [Ecotrin Low Dose] 81 mg PO DAILY 06/01/23 07/22/23 Multivitamins, Thera [Multivitamin 1 tab PO DAILY 06/01/23 07/22/23 (formulary)] [place]-3/Dha/Epa/Fish Oil [Fish Oil 1 cap PO DAILY 06/01/23 07/22/23 1,000 mg Softgel] Omeprazole [PriLOSEC] 20 mg PO DAILY PRN 06/01/23 07/22/23 Testosterone Cypionate 200 mg IM Q14D 06/01/23 07/22/23 [Depo-Testosterone] Dulaglutide [Trulicity] 3 mg SQ WE 07/22/23 07/22/23 amLODIPine [Norvasc] 10 mg PO DAILY 07/22/23 07/22/23 Allergies Allergy/AdvReac Type Severity Reaction Status Date / Time liraglutide [From Victoza] AdvReac Nausea & Verified 07/22/23 15:05 Vomiting/Weakness Review of Systems ROS Statement: Those systems with pertinent positive or pertinent negative responses have been documented in the HPI. ROS Other: All systems not noted in ROS Statement are negative. Past Medical History Past Medical History: Cancer, Diabetes Mellitus, GERD/Reflux, Hyperlipidemia, Hypertension, Osteoarthritis (OA) Additional Past Medical History / Comment(s): chronic neck pain with "head tremors", wears LifeVest-will be getting defibrillator in future, mass on vocal cord per pt.bradycardia History of Any Multi-Drug Resistant Organisms: None Reported Past Surgical History: Heart Catheterization With Stent, Pacemaker Additional Past Surgical History / Comment(s): throat lesions from HPV removed, pilonidal cyst removed Past Anesthesia/Blood Transfusion Reactions: No Reported Reaction Past Psychological History: Anxiety Smoking Status: Former smoker Past Alcohol Use History: Occasional Past Drug Use History: Marijuana - Past Family History Father Family Medical History: Diabetes Mellitus General Exam Limitations: no limitations General appearance: alert, in no apparent distress Head exam: Present: atraumatic, normocephalic Eye exam: Present: normal appearance, PERRL ENT exam: Present: normal exam Neck exam: Present: normal inspection. Absent: tenderness, meningismus Respiratory exam: Present: rales. Absent: respiratory distress, wheezes Cardiovascular Exam: Present: normal rhythm, tachycardia GI/Abdominal exam: Present: soft. Absent: distended, tenderness, guarding Extremities exam: Present: pedal edema Neurological exam: Present: alert, oriented X3, CN II-XII intact. Absent: motor sensory deficit Psychiatric exam: Present: normal affect, normal mood Skin exam: Present: warm, dry, intact. Absent: cyanosis, diaphoretic Course Vital Signs 07/22/23 07/22/23 12:48 15:15 Temperature 97.8 F 97.9 F Pulse Rate 104 H 100 Respiratory 22 20 Rate Blood Pressure 119/74 131/77 O2 Sat by Pulse 94 L 92 L Oximetry Medical Decision Making - Medical Decision Making Was pt. sent in by a medical professional or institution (Dr. PA, [employer] [employer], urgent care, hospital, or alf...) When possible be specific @ -No Did you speak to anyone other than the patient for history (EMS, parent, family, police, friend...)? What history was obtained from this source @ -No Did you review nursing and triage notes (agree or disagree)? Why? @ -I reviewed and agree with nursing and triage notes Were old charts reviewed (outside hosp., previous admission, EMS record, old EKG, old radiological studies, urgent care reports/EKG's, alf records)? Report findings @ -No old charts were reviewed Differential Diagnosis (chest pain, altered mental status, abdominal pain women, abdominal pain men, vaginal bleeding, weakness, fever, dyspnea, syncope, headache, dizziness, GI bleed, back pain, seizure, CVA, palpatations, mental health, musculoskeletal)? @ Differential Dyspnea: Coronary syndrome, arrhythmia, tamponade, asthma, COPD, pulmonary embolism, pneumonia, pneumothorax, pulmonary effusion, anaphylaxis, diabetic ketoacidosis, flailed chest, pulmonary contusion, diaphragmatic rupture, anemia, neuromuscular, this is not meant to be an all-inclusive list. EKG interpreted by me (3pts min.). @ -Ventricular paced rhythm rate of 103. FL interval 202, QRS duration 161, QTC 416] X-rays interpreted by me (1pt min.). @ -Test x-ray showing cardiomegaly with trace bilateral pleural effusion. CT interpreted by me (1pt min.). @ -T negative for pulmonary embolism but does show pericardial effusion. U/S interpreted by me (1pt. min.). @ -None done What testing was considered but not performed or refused? (CT, X-rays, U/S, labs)? Why? @ -None What meds were considered but not given or refused? Why? @ -None Did you discuss the management of the patient with other professionals (professionals i.e. , PA, [employer] [facility], lab, RT, psych nurse, health social work professor, millwright helper, teacher, chief environmental commitment officer, employment case manager)? Give summary @ - discussed with Dr. Black Was smoking cessation discussed for >3mins.? @ -No Was critical care preformed (if so, how long)? @ -No Were there social determinants of health that impacted care today? How? (Homelessness, low income, unemployed, alcoholism, drug addiction, transportation, low edu. Level, literacy, decrease access to med. care, snf, rehab)? @ -No Was there de-escalation of care discussed even if they declined (Discuss DNR or withdrawal of care, Hospice)? DNR status @ -No What co-morbidities impacted this encounter? (DM, HTN, Smoking, COPD, CAD, Cancer, CVA, ARF, Chemo, Hep., AIDS, mental health diagnosis, sleep apnea, morbid obesity)? @ -Recent pacemaker, diabetes Was patient admitted / discharged? Hospital course, mention meds given and route, prescriptions, significant lab abnormalities, going to OR and other pertinent info. @ -[67 male with progressive dyspnea over the past several weeks. As well as bilateral lower extremity edema. Patient is in a paced ventricular rhythm. He has mild anemia but otherwise normal CBC, hyponatremia, normal troponin, normal BNP, negative viral swab. Patient has CT evidence of pericardial effusion likely the cause of his symptoms. Will be admitted with cardiology consultation for evaluation. Undiagnosed new problem with uncertain prognosis? @ -No Drug Therapy requiring intensive monitoring for toxicity (Heparin, Nitro, Insulin, Cardizem)? @ -No Were any procedures done? @ -No Diagnosis/symptom? @ -Dyspnea, pericardial effusion Acute, or Chronic, or Acute on Chronic? @ -acute Uncomplicated (without systemic symptoms) or Complicated (systemic symptoms)? @ -default Side effects of treatment? @ -No Exacerbation, Progression, or Severe Exacerbation? @ -No Poses a threat to life or bodily function? How? (Chest pain, [place], [place], pneumonia, PE, COPD, DKA, ARF, appy, cholecystitis, CVA, Diverticulitis, Homicidal, Suicidal, threat to staff... and all critical care pts) @ -[yes, cardiac tamponade, cardiogenic shock - Lab Data Result diagrams: 07/22/23 13:13 07/22/23 13:13 Lab Results 07/22/23 07/22/23 07/22/23 Range/Units 13:13 13:13 13:13 WBC 6.7 (3.8-10.6) k/uL RBC 4.15 L (4.30-5.90) m/uL Hgb 11.8 L (13.0-17.5) gm/dL Hct 36.0 L (39.0-53.0) % MCV 86.6 (80.0-100.0) fL MCH 28.4 (25.0-35.0) pg MCHC 32.8 (31.0-37.0) g/dL RDW 16.1 H (11.5-15.5) % Plt Count 467 H (150-450) k/uL MPV 7.0 Neutrophils % 80 % Lymphocytes % 10 % Monocytes % 8 % Eosinophils % 1 % Basophils % 0 % Neutrophils # 5.3 (1.3-7.7) k/uL Lymphocytes # 0.6 L (1.0-4.8) k/uL Monocytes # 0.5 (0-1.0) k/uL Eosinophils # 0.1 (0-0.7) k/uL Basophils # 0.0 (0-0.2) k/uL Anisocytosis Slight PT 11.3 (10.0-12.5) sec INR 1.0 (<1.2) APTT 23.5 (22.0-30.0) sec Sodium 127 L (137-145) mmol/L Potassium 5.0 (3.5-5.1) mmol/L Chloride 97 L (98-107) mmol/L Carbon Dioxide 20 L (22-30) mmol/L Anion Gap 10 mmol/L BUN 32 H (9-20) mg/dL Creatinine 1.01 (0.66-1.25) mg/dL Est GFR (CKD-EPI)AfAm 89 (>60 ml/min/1.73 sqM) Est GFR (CKD-EPI)NonAf 77 (>60 ml/min/1.73 sqM) Glucose 317 H (74-99) mg/dL Plasma Lactic Acid [place] (0.7-2.0) mmol/L Calcium 9.5 (8.4-10.2) mg/dL Magnesium 1.7 (1.6-2.3) mg/dL Total Bilirubin 1.1 (0.2-1.3) mg/dL AST 32 (17-59) U/L ALT 43 (4-49) U/L Alkaline Phosphatase 436 H (38-126) U/L Troponin I (0.000-0.034) ng/mL NT-Pro-B Natriuret Pep 529 pg/mL Total Protein 6.8 (6.3-8.2) g/dL Albumin 3.7 (3.5-5.0) g/dL Influenza Type A (PCR) (Not Detectd) Influenza Type B (PCR) (Not Detectd) RSV (PCR) (Not Detectd) SARS-CoV-2 (PCR) (Not Detectd) 07/22/23 07/22/23 07/22/23 Range/Units 13:13 13:27 13:27 WBC (3.8-10.6) k/uL RBC (4.30-5.90) m/uL Hgb (13.0-17.5) gm/dL Hct (39.0-53.0) % MCV (80.0-100.0) fL MCH (25.0-35.0) pg MCHC (31.0-37.0) g/dL RDW (11.5-15.5) % Plt Count (150-450) k/uL MPV Neutrophils % % Lymphocytes % % Monocytes % % Eosinophils % % Basophils % % Neutrophils # (1.3-7.7) k/uL Lymphocytes # (1.0-4.8) k/uL Monocytes # (0-1.0) k/uL Eosinophils # (0-0.7) k/uL Basophils # (0-0.2) k/uL Anisocytosis PT (10.0-12.5) sec INR (<1.2) APTT (22.0-30.0) sec Sodium (137-145) mmol/L Potassium (3.5-5.1) mmol/L Chloride (98-107) mmol/L Carbon Dioxide (22-30) mmol/L Anion Gap mmol/L BUN (9-20) mg/dL Creatinine (0.66-1.25) mg/dL Est GFR (CKD-EPI)AfAm (>60 ml/min/1.73 sqM) Est GFR (CKD-EPI)NonAf (>60 ml/min/1.73 sqM) Glucose (74-99) mg/dL Plasma Lactic Acid [place] 1.8 (0.7-2.0) mmol/L Calcium (8.4-10.2) mg/dL Magnesium (1.6-2.3) mg/dL Total Bilirubin (0.2-1.3) mg/dL AST (17-59) U/L ALT (4-49) U/L Alkaline Phosphatase (38-126) U/L Troponin I <0.012 (0.000-0.034) ng/mL NT-Pro-B Natriuret Pep pg/mL Total Protein (6.3-8.2) g/dL Albumin (3.5-5.0) g/dL Influenza Type A (PCR) Not Detected (Not Detectd) Influenza Type B (PCR) Not Detected (Not Detectd) RSV (PCR) Not Detected (Not Detectd) SARS-CoV-2 (PCR) Not Detected (Not Detectd) Disposition Clinical Impression: Dyspnea, Pericardial effusion Disposition: ADMITTED IP TO THIS HOSP Condition: Stable Is patient prescribed a controlled substance at d/c from ED?: No Referrals: Huseyin Amato MD [Primary Care Provider] - 1-2 days Time of Disposition: 15:29
[2023-07-22 13:24] LABS: Anisocytosis Slight; Basophils % (A) 0 %; Eosinophils # (A) 0.1 k/uL (0-0.7); Eosinophils % (A) 1 %; HGB 11.8 gm/dL (13.0-17.5); Lymphocytes # (A) 0.6 k/uL (1.0-4.8); Lymphocytes % (A) 10 %; MCH 28.4 pg (25.0-35.0); MCHC 32.8 g/dL (31.0-37.0); MCV 86.6 fL (80.0-100.0); Monocytes # (A) 0.5 k/uL (0-1.0); Monocytes % (A) 8 %; Neutrophils # (A) 5.3 k/uL (1.3-7.7); Neutrophils % (A) 80 %; Platelet Count 467 k/uL (150-450); RBC 4.15 m/uL (4.30-5.90); RDW 16.1 % (11.5-15.5); WBC 6.7 k/uL (3.8-10.6)
[2023-07-22 13:34] LABS: Partial Thromboplastin Time 23.5 sec (22.0-30.0); Prothrombin Time 11.3 sec (10.0-12.5)
--- NOTE | 2023-07-22 13:36 | XR ---
EXAMINATION TYPE: XR chest 2V DATE OF EXAM: 07/22/2023 COMPARISON: 07/19/2023 HISTORY: Difficulty breathing. TECHNIQUE: Frontal and lateral views of the chest are obtained. FINDINGS: There is a 2-lead cardiac pacemaker. There is mild cardiomegaly. Pulmonary vasculature is not congest ed. There are small bilateral pleural effusions unchanged. Previous There is no pneumothorax. There is no airspace consolidation or abnormal interstitial opacity. The osseous structures are intact IMPRESSION: No change in the small bilateral pleural effusions and mild cardiomegaly.
[2023-07-22 13:42] LABS: ALT 43 U/L (4-49); AST 32 U/L (17-59); African American GFR (CKD) 89 (>60 ml/min/1.73 sqM); Albumin 3.7 g/dL (3.5-5.0); Alkaline Phosphatase 436 U/L (38-126); Anion Gap 10 mmol/L; Blood Urea Nitrogen 32 mg/dL (9-20); Calcium 9.5 mg/dL (8.4-10.2); Carbon Dioxide 20 mmol/L (22-30); Chloride 97 mmol/L (98-107); Glucose 317 mg/dL (74-99); Magnesium 1.7 mg/dL (1.6-2.3); Non-African American GFR(CKD) 77 (>60 ml/min/1.73 sqM); Sodium 127 mmol/L (137-145); Total Bilirubin 1.1 mg/dL (0.2-1.3); Total Protein 6.8 g/dL (6.3-8.2)
[2023-07-22 13:50] LABS: NT-Pro-B-Type Natriuretic Pept 529 pg/mL
--- NOTE | 2023-07-22 15:11 | CT ---
EXAMINATION TYPE: CT angio chest DATE OF EXAM: 07/22/2023 COMPARISON: Chest x-ray earlier today HISTORY: SHAINA CT DLP: 484.7 mGycm. Automated Exposure Control for Dose Reduction was Utilized. CONTRAST: CTA scan of the thorax is performed with IV Contrast, patient injected with 80 ml mL of Isovue 300, p ulmonary embolism protocol. MIP Images are created on CT scanner and reviewed. FINDINGS: LUNGS: Small to tiny left pleural effusion with associated compressive atelectasis in the lung base. More focal consolidation/atelectasis in the inferior left upper lobe axial image 89 abutting the fiss ure. Small to borderline moderate size right pleural effusion with associated compressive atelectasis. No pneumothorax is seen bilaterally. MEDIASTINUM: There is satisfactory enhancement of the pulmonary artery and its branches, there is no CT evidence for pulmonary embolism. Cardiac pacemaker wires are present. Persistent mild cardiomegaly . There is moderate to borderline large size pericardial effusion measuring up to 3.0 cm in thickness posteriorly axial image 108. Prominent but calcified right hilar and subcarinal lymph nodes are seen . Some enhancement of the thoracic aorta without aneurysm or dissection. There are some scattered sub centimeter noncalcified lymph nodes in the prevascular space. Coronary artery calcification is presen t. OTHER: Calcifications throughout the spleen consistent with product of old granulomatous disease. Sli ghtly contracted gallbladder. IMPRESSION: 1. No CT evidence for acute pulmonary embolism. 2. Moderate to borderline large pericardial effusion. 3. Cardiomegaly with small right vertebral left pleural effusions. Correlate for CHF exacerbation/flu id overload state.
[2023-07-22] MEDS ORDERED: NALOXONE 0.4 MG/ML 1 ML VIAL IV PRN (15:21)
[2023-07-22] MEDS: ACETAMINOPHEN TAB 325 MG TAB PO PRN (15:34)
--- NOTE | 2023-07-22 17:17 | P.HPIM ---
History of Present Illness H&P Date: 07/22/23 Chief Complaint: dyspnea on exertion, epigastric pain 67-year-old male with medical history of CAD status post PCI in 2019 followed by dual-chamber permanent pacemaker placement in May 2023 for high degree AV block as well as new left bundle branch block, systolic heart failure with an ejection fraction of 45%, hypertension, hyperlipidemia presented for evaluation of dyspnea on exertion as well as epigastric pain. Patient says that he was seen by cardiology in May due to worsening dyspnea on exertion and underwent stress testing during which she was identified to have bradycardia with chronotropic incompetence despite stress, therefore was recommended to come to the hospital where he underwent dual-chamber permanent pacemaker placement. After he was discharged, patient noted that his symptoms have improved, however, 3 weeks ago he had an episode where he was leaning over and felt a ripping sensation in the middle of his chest and started to develop symptoms of worsening dyspnea on exertion, lower extremity edema. Later throughout the weeks he started to develop pain in his back and left upper shoulder as well as some pain radiating down the right arm, and noticed that he started develop chills and subjective fevers. Over the last 24 hours he also notes emesis, nausea with epigastric pain that is constant. He denies palpitations, orthopnea , numbness/weakness of extremities. In the emergency room, patient was afebrile, 119/74, heart rate 104, 94% on room air. CBC demonstrated hemoglobin of 11.8, platelets of 467, lymphopenia 0.6. Sodium is 127, chloride is 97, CO2 of 20, BUN of 32, creatinine is 1.01, glucose is 317, alkaline phosphatase is 436, troponin is less than 0.012, BNP is 527. Influenza A, B, RSV, COVID were negative. EKG demonstrates atrial sensed ventricular paced rhythm at a rate of 103. Chest x-ray demonstrated cardiomegaly with mild left-sided pleural effusion, increased pulmonary vascularity. CT angiography shows no evidence of pulmonary embolism, but does demonstrate moderate to large pericardial effusion, cardiomegaly with small right vertebral left pleural effusions. All Systems reviewed and pertinent positives and negatives noted in HPI, all other symptoms are negative Gen: in no apparent distress, resting comfortably in bed Eyes: PERRL, no scleral injection or icterus HENT: normocephalic, atraumatic, good hearing acuity, moist mucous membranes Neck: no tracheal deviation, full range of motion Resp: good air exchange, breathing comfortably with no accessory muscle use, no tactile fremitus CVS: good distal perfusion x 4, bilateral pitting edema GI: soft, NTTP, ND, no hepatosplenomegaly : no suprapubic tenderness, no CVAT, moralez catheter not present MSK: no clubbing, no cyanosis, no noted contractures of extremities Skin: no noted rashes, petechiae; temperature of skin is appropriate Neuro: moving all extremities without signs of weakness, CN II-XII intact Psych: cooperative, euthymic mood, insight and judgment intact Labs and images as above Assessment/plan: Pericardial effusion Acute systolic heart failure exacerbation, ejection fraction 45% -Admit patient to inpatient status -Discussed the case with cardiology, they recommend stat echocardiogram -Will hold off on Lasix until echocardiogram is ordered -Differential includes: Constrictive effusive pericarditis, iatrogenic pericardial effusion -Interrogate patient's pacemaker to ensure that it is still capturing well without significant impedance Status post permanent pacemaker placement Hypertension Hyperlipidemia CAD -Home medications reviewed and reconciled Patient is full code Past Medical History Past Medical History: Cancer, Diabetes Mellitus, GERD/Reflux, Hyperlipidemia, Hypertension, Osteoarthritis (OA) Additional Past Medical History / Comment(s): chronic neck pain with "head tremors", wears LifeVest-will be getting defibrillator in future, mass on vocal cord per pt.bradycardia History of Any Multi-Drug Resistant Organisms: None Reported Past Surgical History: Heart Catheterization With Stent, Pacemaker Additional Past Surgical History / Comment(s): throat lesions from HPV removed, pilonidal cyst removed Past Anesthesia/Blood Transfusion Reactions: No Reported Reaction Past Psychological History: Anxiety Smoking Status: Former smoker Past Alcohol Use History: Occasional Past Drug Use History: Marijuana - Past Family History Father Family Medical History: Diabetes Mellitus Medications and Allergies Home Medications Medication Instructions Recorded Confirmed Type glipiZIDE [Glucotrol] 10 mg PO DAILY 08/24/17 07/22/23 History lisinopriL [Zestril] 10 mg PO DAILY 08/24/17 07/22/23 History metFORMIN HCL ER [Glucophage XR] 1,000 mg PO BID 08/24/17 07/22/23 History Atorvastatin [Lipitor] 80 mg PO HS 08/30/20 07/22/23 History Aspirin EC [Ecotrin Low Dose] 81 mg PO DAILY 06/01/23 07/22/23 History Multivitamins, Thera [Multivitamin 1 tab PO DAILY 06/01/23 07/22/23 History (formulary)] [place]-3/Dha/Epa/Fish Oil [Fish Oil 1 cap PO DAILY 06/01/23 07/22/23 History 1,000 mg Softgel] Omeprazole [PriLOSEC] 20 mg PO DAILY PRN 06/01/23 07/22/23 History Testosterone Cypionate 200 mg IM Q14D 06/01/23 07/22/23 History [Depo-Testosterone] Dulaglutide [Trulicity] 3 mg SQ WE 07/22/23 07/22/23 History amLODIPine [Norvasc] 10 mg PO DAILY 07/22/23 07/22/23 History Allergies Allergy/AdvReac Type Severity Reaction Status Date / Time liraglutide [From Victoza] AdvReac Nausea & Verified 07/22/23 15:05 Vomiting/Weakness Physical Exam Osteopathic Statement: *. No significant issues noted on an osteopathic structural exam other than those noted in the History and Physical/Consult. Vitals: Vital Signs Temp Pulse Resp BP Pulse Ox 07/22/23 16:58 98.1 F 98 20 128/98 94 L 07/22/23 15:15 97.9 F 100 20 131/77 92 L 07/22/23 12:48 97.8 F 104 H 22 119/74 94 L Intake and Output 07/22/23 07/22/23 07/22/23 06:59 14:59 22:59 Other: Weight 86.183 kg Results CBC & Chem 7: 07/22/23 13:13 07/22/23 13:13 Labs: Abnormal Lab Results - Last 24 Hours (Table) 07/22/23 07/22/23 Range/Units 13:13 13:13 RBC 4.15 L (4.30-5.90) m/uL Hgb 11.8 L (13.0-17.5) gm/dL Hct 36.0 L (39.0-53.0) % RDW 16.1 H (11.5-15.5) % Plt Count 467 H (150-450) k/uL Lymphocytes # 0.6 L (1.0-4.8) k/uL Sodium 127 L (137-145) mmol/L Chloride 97 L (98-107) mmol/L Carbon Dioxide 20 L (22-30) mmol/L BUN 32 H (9-20) mg/dL Glucose 317 H (74-99) mg/dL Alkaline Phosphatase 436 H (38-126) U/L
[2023-07-22] MEDS ORDERED: PANTOPRAZOLE 40 MG TABLET PO PRN (17:21)
--- NOTE | 2023-07-22 18:44 | CA ---
Transthoracic Echo Report Name: Devin Haines Age: 67 Gender: M : 1955 Exam Date: 07/22/2023 18:20 Exam Location: [facility] Ht (in): 71 Wt (lb): 190 Ordering Physician: Sal Henao MD ([id number]) Attending/Referring Phys: Career Development Coordinator/Teacher Fady Morales RDCS Procedure CPT: Indications: pericardial effusion, tamponade Cardiac Hx: Technical Quality: Good Contrast 1: Total Dose (mL): Contrast 2: Total Dose (mL): MEASUREMENTS (Male / Female) Normal Values 2D ECHO LV Diastolic Diameter PLAX 4.8 cm 4.2 - 5.9 / 3.9 - 5.3 cm LV Systolic Diameter PLAX 4.3 cm IVS Diastolic Thickness 1.3 cm 0.6 - 1.0 / 0.6 - 0.9 cm LVPW Diastolic Thickness 1.3 cm 0.6 - 1.0 / 0.6 - 0.9 cm LV Relative Wall Thickness 0.5 RV Internal Dim ED PLAX 2.9 cm LVOT Diameter 2.3 cm Aortic Root Diameter 3.1 cm LA Systolic Diameter LX 2.2 cm 3.0 - 4.0 / 2.7 - 3.8 cm LV Diastolic Volume MOD BP 53.5 cm??? 67 - 155 / 56 - 104 cm??? LV Systolic Volume MOD BP 46.2 cm??? 22 - 58 / 19 - 49 cm??? LV Ejection Fraction MOD BP 13.7 % >= 55 % LV Cardiac Index MOD BP 346.4 cm???/min???m??? LV Diastolic Volume MOD 4C 63.5 cm??? LV Systolic Volume MOD 4C 47.1 cm??? LV Ejection Fraction MOD 4C 25.8 % LV Cardiac Index MOD 4C 775.7 cm???/min???m??? LV Diastolic Length 4C 8.0 cm LV Systolic Length 4C 7.5 cm LV Diastolic Volume MOD 2C 38.6 cm??? LV Systolic Volume MOD 2C 39.9 cm??? LV Ejection Fraction MOD 2C -3.6 % LV Cardiac Index MOD 2C -65.7 cm???/min???m??? LV Diastolic Length 2C 6.5 cm LV Systolic Length 2C 6.6 cm LA Volume 43.0 cm??? 18 - 58 / 22 - 52 cm??? LA Volume Index 20.6 cm???/m??? 16 - 28 cm???/m??? DOPPLER AV Peak Velocity 128.8 cm/s AV Peak Gradient 6.6 mmHg AI Peak Velocity 185.9 cm/s AI Peak Gradient 13.8 mmHg AI Pressure Half Time 313.8 ms LVOT Peak Velocity 71.3 cm/s LVOT Peak Gradient 2.0 mmHg LVOT Velocity Time Integral 10.9 cm LVOT Stroke Volume 44.0 cm??? LVOT Stroke Volume Index 21.3 ml/m??? LVOT Cardiac Index 2084.3 cm???/min???m??? AV Area Cont Eq pk 2.2 cm??? MV Peak Velocity 117.7 cm/s MV Peak Gradient 5.5 mmHg MV Mean Velocity 46.2 cm/s MV Mean Gradient 1.2 mmHg MV Velocity Time Integral 25.6 cm Mitral E Point Velocity 99.7 cm/s Mitral A Point Velocity 36.0 cm/s Mitral E to A Ratio 2.8 MV Deceleration Time 178.9 ms PV Peak Velocity 99.1 cm/s PV Peak Gradient 3.9 mmHg FINDINGS Left Ventricle Normal LV size. Mild concentric LVH. Left ventricular ejection fraction is estimated at 40-45%. Right Ventricle Normal right ventricular size. Right Atrium Normal right atrial size. Left Atrium Normal left atrial size. Mitral Valve Structurally normal mitral valve. Aortic Valve Mild to moderate calcification. Mild AI. No aortic stenosis. Tricuspid Valve Structurally normal tricuspid valve. Trace TR. Pulmonic Valve Pulmonic valve not well visualized. No pulmonic regurgitation. Pericardium Large global pericardial effusion. Aorta Normal size aortic root. CONCLUSIONS Left ventricular ejection fraction is estimated at 40-45%. Paradoxical septal motion due to paced rhythm Large circumferential pericardial effusion measuring maximum of 2.6 cm Signs of early tamponade with systolic RA collapse and mitral inflow variance with inspiration Normal RVSP and RV systolic function Previewed by: Dr Sal Henao (Electronically Signed) Final Date: 22 July 2023 18:43
--- NOTE | 2023-07-22 18:53 | P.CRDCN ---
History of Present Illness Consult date: 07/22/23 History of present illness: HISTORY OF PRESENTING ILLNESS 57-year-old with PMH of CAD s/p PCI in 2019, dual-chamber PPM in May 2023 for chronotropic incompetence during stress test. His last echo from May 2023 showed an EF of 40 to 45% This time patient presented to the hospital because of worsening shortness of breath orthopnea and paroxysmal nocturnal dyspnea symptoms. He has also been complaining of substernal chest heaviness which is radiating to his scapula and mid back and right shoulder. This pain is mostly when he changes position. It is not related to any diaphoresis. Is also been complaining of some nausea and vomiting and has had poor oral intake throughout the day today. On admission blood pressure 90/70, heart rate 104, paced rhythm, 94% room air Hemoglobin 11.8, platelets 400, sodium 127, BUN 23, creatinine 1.01, glucose 317, ALP 436, troponin 0.01, BNP 500 Viral panel was negative ECG showed AV paced rhythm heart rate 103 Chest x-ray showed cardiomegaly and small pericardial effusion and pleural effusion CTA chest did not show any evidence of pulmonary embolism. It did show a large pericardial effusions, moderate to small right pleural effusion REVIEW OF SYSTEMS 14 point review of system is negative except what is mentioned above in HPI. PHYSICAL EXAMINATION Vital signs reviewed. Head: Normocephalic. Eyes: Sclerae nonicteric. Neck: Brisk carotid upstroke, has elevated jugular venous distention. Lungs: Clear to auscultation. Heart: Regular rate and rhythm, distant heart sounds S1-S2, no S3, no murmur or rub. Abdomen: Soft nontender, positive bowel sounds. Extremities: 1-2+ pitting edema bilateral lower extremity. Neuro: Alert, oritented, no focal deficits. Detailed neuro exam was not performed. ASSESSMENT Moderate to large pericardial effusion circumferential, with pretamponade signs. 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 Coelho History of CAD s/p PCI to mid distal LCx 2019 Hypertension Type 2 diabetes Dyslipidemia PLAN IV Lasix 40 mg every 8 hours Metoprolol tartrate 25 mg twice daily Order ESR and CRP levels. If elevated and patient complains of chest pain, may consider adding colchicine Continue to trend troponin Consider repeating echocardiogram in the next 48 hours to see any changes. Hold and hypertensives Sal Henao MD, FACC, RPVI Thank you for allowing [facility] to participate in this patient's care. Feel free to reach out in case of any followup questions. 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 ago, smoked since age of 13, <ppd Past Drug Use History: Marijuana Additional Drug Use History / Comment(s): occasional use - Past Family History Father Family Medical History: Diabetes Mellitus Medications and Allergies Home Medications Medication Instructions Recorded Confirmed Type glipiZIDE [Glucotrol] 10 mg PO DAILY 08/24/17 07/22/23 History lisinopriL [Zestril] 10 mg PO DAILY 08/24/17 07/22/23 History metFORMIN HCL ER [Glucophage XR] 1,000 mg PO BID 08/24/17 07/22/23 History Atorvastatin [Lipitor] 80 mg PO HS 08/30/20 07/22/23 History Aspirin EC [Ecotrin Low Dose] 81 mg PO DAILY 06/01/23 07/22/23 History Multivitamins, Thera [Multivitamin 1 tab PO DAILY 06/01/23 07/22/23 History (formulary)] [place]-3/Dha/Epa/Fish Oil [Fish Oil 1 cap PO DAILY 06/01/23 07/22/23 History 1,000 mg Softgel] Omeprazole [PriLOSEC] 20 mg PO DAILY PRN 06/01/23 07/22/23 History Testosterone Cypionate 200 mg IM Q14D 06/01/23 07/22/23 History [Depo-Testosterone] Dulaglutide [Trulicity] 3 mg SQ WE 07/22/23 07/22/23 History amLODIPine [Norvasc] 10 mg PO DAILY 07/22/23 07/22/23 History Allergies Allergy/AdvReac Type Severity Reaction Status Date / Time liraglutide [From Victoza] AdvReac Nausea & Verified 07/22/23 15:05 Vomiting/Weakness Physical Exam Vitals: Vital Signs Temp Pulse Pulse Resp BP BP Pulse Ox 07/22/23 17:55 98.0 F 101 H 16 123/84 91 L 07/22/23 16:58 98.1 F 98 20 128/98 94 L 07/22/23 15:15 97.9 F 100 20 131/77 92 L 07/22/23 12:48 97.8 F 104 H 22 119/74 94 L Intake and Output 07/22/23 07/22/23 07/22/23 06:59 14:59 22:59 Other: # Voids 1 Weight 86.183 kg 86.183 kg Results 07/22/23 13:13 07/22/23 13:13 Cardiac Enzymes 07/22/23 07/22/23 Range/Units 13:13 13:13 AST 32 (17-59) U/L Troponin I <0.012 (0.000-0.034) ng/mL Coagulation 07/22/23 Range/Units 13:13 PT 11.3 (10.0-12.5) sec APTT 23.5 (22.0-30.0) sec CBC 07/22/23 Range/Units 13:13 WBC 6.7 (3.8-10.6) k/uL RBC 4.15 L (4.30-5.90) m/uL Hgb 11.8 L (13.0-17.5) gm/dL Hct 36.0 L (39.0-53.0) % Plt Count 467 H (150-450) k/uL Comprehensive Metabolic Panel 07/22/23 Range/Units 13:13 Sodium 127 L (137-145) mmol/L Potassium 5.0 (3.5-5.1) mmol/L Chloride 97 L (98-107) mmol/L Carbon Dioxide 20 L (22-30) mmol/L BUN 32 H (9-20) mg/dL Creatinine 1.01 (0.66-1.25) mg/dL Glucose 317 H (74-99) mg/dL Calcium 9.5 (8.4-10.2) mg/dL AST 32 (17-59) U/L ALT 43 (4-49) U/L Alkaline Phosphatase 436 H (38-126) U/L Total Protein 6.8 (6.3-8.2) g/dL Albumin 3.7 (3.5-5.0) g/dL Current Medications Generic Name Dose Route Start Last Admin Trade Name Freq PRN Reason Stop Dose Admin Acetaminophen 650 mg 07/22/23 15:21 07/22/23 15:34 Acetaminophen Tab 325 Mg Tab PO 650 mg Q6HR PRN Administration Mild Pain or Fever > 100.5 Atorvastatin Calcium 80 mg 07/22/23 21:00 Atorvastatin 80 Mg Tab PO HS [place] Furosemide 40 mg 07/22/23 19:00 Furosemide 10 Mg/Ml 4 Ml Vial IV Q8H [place] Metoprolol Tartrate 25 mg 07/22/23 21:00 Metoprolol Tartrate 25 Mg Tab PO BID [place] Multivitamins 1 each 07/23/23 09:00 Multivitamins, Thera 1 Each Tab PO DAILY [place] Naloxone HCl 0.2 mg 07/22/23 15:21 Naloxone 0.4 Mg/Ml 1 Ml Vial IV Q2M PRN Opioid Reversal Non-Formulary Medication 1 cap 07/23/23 09:00 [place]-3/Dha/Epa/Fish Oil [Fish Oil 1,000 Mg Softgel] PO DAILY [place] Pantoprazole Sodium 40 mg 07/22/23 17:21 Pantoprazole 40 Mg Tablet PO DAILY PRN GI Upset Intake and Output 07/22/23 07/22/23 07/22/23 06:59 14:59 22:59 Other: # Voids 1 Weight 86.183 kg 86.183 kg Patient Weight 07/23/23 06:59 Weight 86.183 kg 07/22/23 13:13 07/22/23 13:13
[2023-07-22] MEDS: METOPROLOL TARTRATE 25 MG TAB PO SCH (21:28)
[2023-07-22] MEDS: FUROSEMIDE 10 MG/ML 4 ML VIAL IV SCH (21:28)
[2023-07-22] MEDS: ATORVASTATIN 80 MG TAB PO SCH (21:28)
[2023-07-22] MEDS: HYDROcodone/APAP 5-325MG 1 EACH TAB PO STA (23:13)
[2023-07-22] MEDS: ONDANSETRON 4 MG/2 ML VIAL IVP STA (23:42)
[2023-07-23 05:52] LABS: Glucose,Whole Blood 349 mg/dL (70-110)
[2023-07-23] MEDS: INSULIN ASPART (NovoLOG) 100 UNIT/ML VIAL SQ SCH (06:35)
[2023-07-23] MEDS: NON FORMULARY DRUG (Omega-3/Dha/Epa/Fish Oil [Fish Oil 1,000 Mg Softgel] 1 EACH Capsule) PO SCH (09:21)
[2023-07-23 09:33] LABS: African American GFR (CKD) 54 (>60 ml/min/1.73 sqM); Anion Gap 11 mmol/L; Anisocytosis Slight; Basophils % (A) 0 %; Blood Urea Nitrogen 40 mg/dL (9-20); Calcium 9.1 mg/dL (8.4-10.2); Carbon Dioxide 19 mmol/L (22-30); Chloride 96 mmol/L (98-107); Eosinophils % (A) 0 %; Glucose 302 mg/dL (74-99); HCT 34.7 % (39.0-53.0); HGB 10.9 gm/dL (13.0-17.5); Hypochromasia Slight; Lymphocytes # (A) 0.6 k/uL (1.0-4.8); Lymphocytes % (A) 8 %; MCH 27.7 pg (25.0-35.0); MCHC 31.3 g/dL (31.0-37.0); MCV 88.5 fL (80.0-100.0); Magnesium 1.9 mg/dL (1.6-2.3); Mean Platelet Volume 7.4; Monocytes # (A) 0.6 k/uL (0-1.0); Monocytes % (A) 8 %; Neutrophils # (A) 5.8 k/uL (1.3-7.7); Neutrophils % (A) 82 %; Non-African American GFR(CKD) 47 (>60 ml/min/1.73 sqM); Platelet Count 474 k/uL (150-450); Potassium 5.7 mmol/L (3.5-5.1); RBC 3.92 m/uL (4.30-5.90); RDW 16.2 % (11.5-15.5); Sodium 126 mmol/L (137-145)
[2023-07-23] MEDS: SODIUM POLYSTYRENE SULFONATE 15 GM/60 ML BOTTLE PO ONE (10:42)
[2023-07-23] MEDS: MULTIVITAMINS, THERA 1 EACH TAB PO SCH (10:42)
--- NOTE | 2023-07-23 10:53 | P.PN ---
Subjective Progress Note Date: 07/23/23 Pt still reporting dyspnea and orthopnea. Intermittent chills/sweats. No fevers. Started on IV lasix by cardiology yesterday. Gen: in no apparent distress, resting comfortably in bed Eyes: PERRL, no scleral injection or icterus HENT: normocephalic, atraumatic, good hearing acuity, moist mucous membranes Neck: no tracheal deviation, full range of motion Resp: good air exchange, breathing comfortably with no accessory muscle use, no tactile fremitus CVS: good distal perfusion x 4, bilateral pitting edema GI: soft, NTTP, ND, no hepatosplenomegaly : no suprapubic tenderness, no CVAT, moralez catheter not present MSK: no clubbing, no cyanosis, no noted contractures of extremities Skin: no noted rashes, petechiae; temperature of skin is appropriate Neuro: moving all extremities without signs of weakness, CN II-XII intact Psych: cooperative, euthymic mood, insight and judgment intact Hospital Course: 67-year-old male with medical history of CAD status post PCI in 2019 followed by dual-chamber permanent pacemaker placement in May 2023 for high degree AV block as well as new left bundle branch block, systolic heart failure with an ejection fraction of 45%, hypertension, hyperlipidemia presented for evaluation of dyspnea on exertion as well as epigastric pain. In the emergency room, patient was afebrile, 119/74, heart rate 104, 94% on room air. CBC demonstrated hemoglobin of 11.8, platelets of 467, lymphopenia 0.6. Sodium is 127, chloride is 97, CO2 of 20, BUN of 32, creatinine is 1.01, glucose is 317, alkaline phosphatase is 436, troponin is less than 0.012, BNP is 527. Influenza A, B, RSV, COVID were negative. EKG demonstrates atrial sensed ventricular paced rhythm at a rate of 103. Chest x-ray demonstrated cardiomegaly with mild left- sided pleural effusion, increased pulmonary vascularity. CT angiography shows no evidence of pulmonary embolism, but does demonstrate moderate to large pericardial effusion, cardiomegaly with small right vertebral left pleural effu sions. Assessment/plan: Pericardial effusion Acute systolic heart failure exacerbation, ejection fraction 45% KALLIE -Admit patient to inpatient status -Cardiology consult appreciated -Lasix 40mg IV BID -Differential includes: Constrictive effusive pericarditis, iatrogenic pericardial effusion, volume overload from heart failure -Interrogate patient's pacemaker to ensure that it is still capturing well without significant impedance Status post permanent pacemaker placement Hypertension Hyperlipidemia CAD -Home medications reviewed and reconciled Patient is full code Objective - Vital Signs Vital signs: Vital Signs Temp 97.6 F 07/22/23 20:00 Pulse 76 07/23/23 04:00 Resp 16 07/23/23 04:00 BP 103/61 07/23/23 04:00 Pulse Ox 92 L 07/23/23 04:00 FiO2 Intake & Output 07/22/23 07/23/23 07/23/23 18:59 06:59 18:59 Intake Total 221 200 Balance 221 200 Weight 86.183 kg 89.4 kg Intake: Oral 221 200 Other: Voiding Method Toilet # Voids 1 - Labs CBC & Chem 7: 07/23/23 08:12 07/23/23 08:12 Labs: Abnormal Lab Results - Last 24 Hours (Table) 07/22/23 07/22/23 07/23/23 Range/Units 13:13 13:13 05:51 RBC 4.15 L (4.30-5.90) m/uL Hgb 11.8 L (13.0-17.5) gm/dL Hct 36.0 L (39.0-53.0) % RDW 16.1 H (11.5-15.5) % Plt Count 467 H (150-450) k/uL Lymphocytes # 0.6 L (1.0-4.8) k/uL Sodium 127 L (137-145) mmol/L Potassium (3.5-5.1) mmol/L Chloride 97 L (98-107) mmol/L Carbon Dioxide 20 L (22-30) mmol/L BUN 32 H (9-20) mg/dL Creatinine (0.66-1.25) mg/dL Glucose 317 H (74-99) mg/dL POC Glucose (mg/dL) 349 H (70-110) mg/dL Alkaline Phosphatase 436 H (38-126) U/L 07/23/23 07/23/23 Range/Units 08:12 08:12 RBC 3.92 L (4.30-5.90) m/uL Hgb 10.9 L (13.0-17.5) gm/dL Hct 34.7 L (39.0-53.0) % RDW 16.2 H (11.5-15.5) % Plt Count 474 H (150-450) k/uL Lymphocytes # 0.6 L (1.0-4.8) k/uL Sodium 126 L (137-145) mmol/L Potassium 5.7 H (3.5-5.1) mmol/L Chloride 96 L (98-107) mmol/L Carbon Dioxide 19 L (22-30) mmol/L BUN 40 H (9-20) mg/dL Creatinine 1.52 H (0.66-1.25) mg/dL Glucose 302 H (74-99) mg/dL POC Glucose (mg/dL) (70-110) mg/dL Alkaline Phosphatase (38-126) U/L
[2023-07-23 11:26] LABS: Glucose,Whole Blood 308 mg/dL (70-110)
--- NOTE | 2023-07-23 13:03 | P.PN ---
Subjective HISTORY OF PRESENTING ILLNESS 57-year-old with PMH of CAD s/p PCI in 2019, dual-chamber PPM in May 2023 for chronotropic incompetence during stress test. His last echo from May 2023 showed an EF of 40 to 45% This time patient presented to the hospital because of worsening shortness of breath orthopnea and paroxysmal nocturnal dyspnea symptoms. He has also been complaining of substernal chest heaviness which is radiating to his scapula and mid back and right shoulder. This pain is mostly when he changes position. It is not related to any diaphoresis. Is also been complaining of some nausea and vomiting and has had poor oral intake throughout the day today. On admission blood pressure 90/70, heart rate 104, paced rhythm, 94% room air Hemoglobin 11.8, platelets 400, sodium 127, BUN 23, creatinine 1.01, glucose 317, ALP 436, troponin 0.01, BNP 500 Viral panel was negative ECG showed AV paced rhythm heart rate 103 Chest x-ray showed cardiomegaly and small pericardial effusion and pleural effusion CTA chest did not show any evidence of pulmonary embolism. It did show a large pericardial effusions, moderate to small right pleural effusion 07/23/2023 Patient seen and examined resting comfortably in bed in no acute distress. Yesterday after receiving a [place] he had an episode of feeling dizzy and lightheaded. Telemetry tracings unremarkable. Blood pressure 127/81 heart rate 89 afebrile maintaining oxygen saturation on nasal cannula. Laboratory data reviewed, hemoglobin 10.9, platelets 474, sodium 126, potassium 5.7, creatinine 1.52, CRP 6.6, sedimentation rate pending. PHYSICAL EXAMINATION Vital signs reviewed. Head: Normocephalic. Eyes: Sclerae nonicteric. Neck: Brisk carotid upstroke, has elevated jugular venous distention. Lungs: Clear to auscultation. Heart: Regular rate and rhythm, distant heart sounds S1-S2, no S3, no murmur or rub. Abdomen: Soft nontender, positive bowel sounds. Extremities: 1-2+ pitting edema bilateral lower extremity. Neuro: Alert, oritented, no focal deficits. Detailed neuro exam was not performed. ASSESSMENT Moderate to large pericardial effusion circumferential, with pretamponade signs. 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 Coelho History of CAD s/p PCI to mid distal LCx 2019 Hypertension Type 2 diabetes Dyslipidemia PLAN Decrease Lasix to twice daily. Give 1 dose of Kayexalate now. Add colchicine 0.6 mg BID. Limited echo tomorrow to evaluate effusion. Repeat BMP in the morning. Further recommendations to follow based upon clinical course. Nurse Practitioner note has been reviewed, I agree with a documented findings and plan of care. Patient was seen and examined. Objective - Vital Signs Vital signs: Vital Signs Temp 97.7 F 07/23/23 09:15 Pulse 89 07/23/23 11:55 Resp 16 07/23/23 11:55 BP 127/81 07/23/23 11:55 Pulse Ox 95 07/23/23 11:55 FiO2 Intake & Output 07/22/23 07/23/23 07/23/23 18:59 06:59 18:59 Intake Total 221 200 Balance 221 200 Weight 86.183 kg 89.4 kg Intake: Oral 221 200 Other: Voiding Method Toilet # Voids 1 1 - Labs CBC & Chem 7: 07/23/23 08:12 07/23/23 08:12 Labs: Abnormal Lab Results - Last 24 Hours (Table) 07/22/23 07/22/23 07/23/23 Range/Units 13:13 13:13 05:51 RBC 4.15 L (4.30-5.90) m/uL Hgb 11.8 L (13.0-17.5) gm/dL Hct 36.0 L (39.0-53.0) % RDW 16.1 H (11.5-15.5) % Plt Count 467 H (150-450) k/uL Lymphocytes # 0.6 L (1.0-4.8) k/uL Sodium 127 L (137-145) mmol/L Potassium (3.5-5.1) mmol/L Chloride 97 L (98-107) mmol/L Carbon Dioxide 20 L (22-30) mmol/L BUN 32 H (9-20) mg/dL Creatinine (0.66-1.25) mg/dL Glucose 317 H (74-99) mg/dL POC Glucose (mg/dL) 349 H (70-110) mg/dL Alkaline Phosphatase 436 H (38-126) U/L C-Reactive Protein (<1.0) mg/dL 07/23/23 07/23/23 07/23/23 Range/Units 08:12 08:12 10:37 RBC 3.92 L (4.30-5.90) m/uL Hgb 10.9 L (13.0-17.5) gm/dL Hct 34.7 L (39.0-53.0) % RDW 16.2 H (11.5-15.5) % Plt Count 474 H (150-450) k/uL Lymphocytes # 0.6 L (1.0-4.8) k/uL Sodium 126 L (137-145) mmol/L Potassium 5.7 H (3.5-5.1) mmol/L Chloride 96 L (98-107) mmol/L Carbon Dioxide 19 L (22-30) mmol/L BUN 40 H (9-20) mg/dL Creatinine 1.52 H (0.66-1.25) mg/dL Glucose 302 H (74-99) mg/dL POC Glucose (mg/dL) (70-110) mg/dL Alkaline Phosphatase (38-126) U/L C-Reactive Protein 6.6 H (<1.0) mg/dL 07/23/23 Range/Units 11:18 RBC (4.30-5.90) m/uL Hgb (13.0-17.5) gm/dL Hct (39.0-53.0) % RDW (11.5-15.5) % Plt Count (150-450) k/uL Lymphocytes # (1.0-4.8) k/uL Sodium (137-145) mmol/L Potassium (3.5-5.1) mmol/L Chloride (98-107) mmol/L Carbon Dioxide (22-30) mmol/L BUN (9-20) mg/dL Creatinine (0.66-1.25) mg/dL Glucose (74-99) mg/dL POC Glucose (mg/dL) 308 H (70-110) mg/dL Alkaline Phosphatase (38-126) U/L C-Reactive Protein (<1.0) mg/dL
[2023-07-23 16:28] LABS: Glucose,Whole Blood 213 mg/dL (70-110)
[2023-07-23] MEDS: COLCHICINE 0.6 MG EACH PO SCH (16:57)
[2023-07-23 20:25] LABS: Glucose,Whole Blood 134 mg/dL (70-110)
[2023-07-23] MEDS: FUROSEMIDE 10 MG/ML 4 ML VIAL IV SCH (21:13)
[2023-07-24 06:09] LABS: Glucose,Whole Blood 169 mg/dL (70-110)
[2023-07-24 07:35] LABS: African American GFR (CKD) 60 (>60 ml/min/1.73 sqM); Anion Gap 11 mmol/L; Blood Urea Nitrogen 47 mg/dL (9-20); Carbon Dioxide 21 mmol/L (22-30); Chloride 96 mmol/L (98-107); Glucose 153 mg/dL (74-99); Non-African American GFR(CKD) 52 (>60 ml/min/1.73 sqM); Potassium 5.2 mmol/L (3.5-5.1); Sodium 128 mmol/L (137-145)
--- NOTE | 2023-07-24 10:41 | P.PN ---
Subjective Progress Note Date: 07/24/23 HISTORY OF PRESENTING ILLNESS 57-year-old with PMH of CAD s/p PCI in 2019, dual-chamber PPM in May 2023 for chronotropic incompetence during stress test. His last echo from May 2023 showed an EF of 40 to 45% This time patient presented to the hospital because of worsening shortness of breath orthopnea and paroxysmal nocturnal dyspnea symptoms. He has also been complaining of substernal chest heaviness which is radiating to his scapula and mid back and right shoulder. This pain is mostly when he changes position. It is not related to any diaphoresis. Is also been complaining of some nausea and vomiting and has had poor oral intake throughout the day today. On admission blood pressure 90/70, heart rate 104, paced rhythm, 94% room air Hemoglobin 11.8, platelets 400, sodium 127, BUN 23, creatinine 1.01, glucose 317, ALP 436, troponin 0.01, BNP 500 Viral panel was negative ECG showed AV paced rhythm heart rate 103 Chest x-ray showed cardiomegaly and small pericardial effusion and pleural effusion CTA chest did not show any evidence of pulmonary embolism. It did show a large pericardial effusions, moderate to small right pleural effusion 07/23/2023 Patient seen and examined resting comfortably in bed in no acute distress. Yesterday after receiving a [place] he had an episode of feeling dizzy and lightheaded. Telemetry tracings unremarkable. Blood pressure 127/81 heart rate 89 afebrile maintaining oxygen saturation on nasal cannula. Laboratory data reviewed, hemoglobin 10.9, platelets 474, sodium 126, potassium 5.7, creatinine 1.52, CRP 6.6, sedimentation rate pending. 07/24 Yesterday Lasix was decreased to twice daily, 40 mg IV. He also received a dose of Kayexalate for potassium of 5.7. Repeat blood work today reveals sodium 128, potassium 5.2, BUN 47 creatinine 1.4. Heart rate is 80-94. Patient states that he has difficulty walking to the bathroom with shortness of breath. He denies having any chest pain, no tachycardia. He has trace lower extremity edema. PHYSICAL EXAMINATION Vital signs reviewed. Head: Normocephalic. Eyes: Sclerae nonicteric. Neck: Brisk carotid upstroke, has elevated jugular venous distention. Lungs: Clear to auscultation. Heart: Regular rate and rhythm, distant heart sounds S1-S2, no S3, no murmur or rub. Abdomen: Soft nontender, positive bowel sounds. Extremities: trace edema bilateral lower extremity. Neuro: Alert, oritented, no focal deficits. Detailed neuro exam was not performed. ASSESSMENT Moderate to large pericardial effusion circumferential, with pretamponade signs. 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 Coelho History of CAD s/p PCI to mid distal LCx 2019 Hypertension Type 2 diabetes Dyslipidemia PLAN Continue IV Lasix 40 mg twice daily. Continue colchicine 0.6 mg BID. Limited echo to evaluate effusion. Consult with cardiothoracic surgery for pericardial window Further recommendations to follow based upon clinical course. Nurse Practitioner note has been reviewed, I agree with a documented findings and plan of care. Patient was seen and examined. Objective - Vital Signs Vital signs: Vital Signs Temp 97.8 F 07/24/23 04:00 Pulse 94 07/24/23 04:00 Resp 16 07/24/23 04:00 BP 122/81 07/24/23 04:00 Pulse Ox 92 L 07/24/23 04:00 FiO2 Intake & Output 07/23/23 07/24/23 07/24/23 18:59 06:59 18:59 Intake Total 420 Balance 420 Weight 89.7 kg Intake: Oral 420 Other: Voiding Method Toilet # Voids 1 - Labs CBC & Chem 7: 07/23/23 08:12 07/24/23 06:15 Labs: Abnormal Lab Results - Last 24 Hours (Table) 07/23/23 07/23/23 07/23/23 Range/Units 08:12 08:12 10:37 RBC 3.92 L (4.30-5.90) m/uL Hgb 10.9 L (13.0-17.5) gm/dL Hct 34.7 L (39.0-53.0) % RDW 16.2 H (11.5-15.5) % Plt Count 474 H (150-450) k/uL Lymphocytes # 0.6 L (1.0-4.8) k/uL Sodium 126 L (137-145) mmol/L Potassium 5.7 H (3.5-5.1) mmol/L Chloride 96 L (98-107) mmol/L Carbon Dioxide 19 L (22-30) mmol/L BUN 40 H (9-20) mg/dL Creatinine 1.52 H (0.66-1.25) mg/dL Glucose 302 H (74-99) mg/dL POC Glucose (mg/dL) (70-110) mg/dL C-Reactive Protein 6.6 H (<1.0) mg/dL 07/23/23 07/23/23 07/23/23 Range/Units 11:18 16:26 20:23 RBC (4.30-5.90) m/uL Hgb (13.0-17.5) gm/dL Hct (39.0-53.0) % RDW (11.5-15.5) % Plt Count (150-450) k/uL Lymphocytes # (1.0-4.8) k/uL Sodium (137-145) mmol/L Potassium (3.5-5.1) mmol/L Chloride (98-107) mmol/L Carbon Dioxide (22-30) mmol/L BUN (9-20) mg/dL Creatinine (0.66-1.25) mg/dL Glucose (74-99) mg/dL POC Glucose (mg/dL) 308 H 213 H 134 H (70-110) mg/dL C-Reactive Protein (<1.0) mg/dL 07/24/23 07/24/23 Range/Units 06:07 06:15 RBC (4.30-5.90) m/uL Hgb (13.0-17.5) gm/dL Hct (39.0-53.0) % RDW (11.5-15.5) % Plt Count (150-450) k/uL Lymphocytes # (1.0-4.8) k/uL Sodium 128 L (137-145) mmol/L Potassium 5.2 H (3.5-5.1) mmol/L Chloride 96 L (98-107) mmol/L Carbon Dioxide 21 L (22-30) mmol/L BUN 47 H (9-20) mg/dL Creatinine 1.40 H (0.66-1.25) mg/dL Glucose 153 H (74-99) mg/dL POC Glucose (mg/dL) 169 H (70-110) mg/dL C-Reactive Protein (<1.0) mg/dL
[2023-07-24 11:32] LABS: Glucose,Whole Blood 385 mg/dL (70-110)
--- NOTE | 2023-07-24 11:39 | CA ---
Transthoracic Echo Report Name: Devin Haines Age: 67 Gender: M : 1955 Exam Date: 07/24/2023 08:42 Exam Location: [facility] Ht (in): 71 Wt (lb): 197 Ordering Physician: Dominique Sanchez Attending/Referring Phys: [id number], [employer] Supervisor Dwayne Burkett RDCS Procedure CPT: Indications: Effusion Cardiac Hx: Technical Quality: Fair Contrast 1: Total Dose (mL): Contrast 2: Total Dose (mL): MEASUREMENTS (Male / Female) Normal Values 2D ECHO LV Diastolic Diameter PLAX 4.4 cm 4.2 - 5.9 / 3.9 - 5.3 cm LV Systolic Diameter PLAX 3.5 cm IVS Diastolic Thickness 1.2 cm 0.6 - 1.0 / 0.6 - 0.9 cm LVPW Diastolic Thickness 0.7 cm 0.6 - 1.0 / 0.6 - 0.9 cm LV Relative Wall Thickness 0.4 Aortic Root Diameter 3.7 cm LA Systolic Diameter LX 4.4 cm 3.0 - 4.0 / 2.7 - 3.8 cm DOPPLER AV Peak Velocity 132.5 cm/s AV Peak Gradient 7.0 mmHg AV Mean Velocity 93.1 cm/s AV Mean Gradient 3.7 mmHg AV Velocity Time Integral 21.1 cm LVOT Peak Velocity 52.0 cm/s LVOT Peak Gradient 1.1 mmHg LVOT Velocity Time Integral 7.0 cm Mitral E Point Velocity 90.8 cm/s Mitral A Point Velocity 40.1 cm/s Mitral E to A Ratio 2.3 MV Deceleration Time 165.4 ms TR Peak Velocity 149.6 cm/s TR Peak Gradient 9.0 mmHg PV Peak Velocity 53.8 cm/s PV Peak Gradient 1.2 mmHg FINDINGS Left Ventricle Mildly increased septal wall thickness. Left ventricular ejection fraction is estimated at 40-45 %.mild concentric left ventricular hypertrophy. Right Ventricle Normal right ventricular size and function. Right Atrium Normal right atrial size. Left Atrium Mildly increased left atrial diameter. Mitral Valve Structurally normal mitral valve. Aortic Valve Mild aortic regurgitation. Tricuspid Valve Tricuspid valve not well visualized. Pulmonic Valve Pulmonic valve not well visualized. Pericardium Large global pericardial effusion. Aorta Normal size aortic root and proximal ascending aorta. CONCLUSIONS Previous echo recorded on 07/22/2023. Left ventricular ejection fraction 4045% Mild increased left ventricular wall thickness Mild aortic regurgitation Large pericardial effusion measuring up to 1.5 cm with cardiac tamponade physiology, Right atrial diastolic collapse Previewed by: Dr. Jerry Coelho DO (Electronically Signed) Final Date: 24 July 2023 11:39
--- NOTE | 2023-07-24 11:57 | P.GSCN ---
History of Present Illness Consult date: 07/24/23 Reason for Consult: Pericardial effusion Requesting physician: Santhosh Herron History of present illness: This is a 67-year-old gentleman who follows on an outpatient basis with Dr. Neville Amato for his primary care and with Dr. Santhosh Herron for his cardiology care. 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 The patient reports 2 weeks ago while hunting he was bending down tying his boot and felt a tear in his chest. Since this feeling the patient has had complaints of progressive shortness of breath, bilateral lower extremity edema, pain in the back of his neck radiating to his left shoulder blade, complaints of nausea on Monday, July 21, 2023 and an episode of vomiting and becoming diaphoretic. Due to his shortness of breath and other symptoms he presented to the emergency department here at [facility] on Saturday, July 22, 2023 for further evaluation and treat ment recommendations. The patient denies any recent fever, chills, trauma, headache, hemoptysis, hematemesis, palpitations, visual disturbances, presyncope or syncope. Initial laboratory results showed a WBC count of 6.7, hemoglobin 11.8, hematocrit 36.0, platelets 467, PT 11.3, INR 1.0, PTT 23.5, sodium 127, potassium 5.0, chloride 97, CO2 20, BUN 32, creatinine 1.01, glucose 317, calcium 9.5, magnesium 1.7, AST 32, ALT 43, alkaline phosphatase 436, troponin less than 0.012, and proBNP 529. Screening for influenza type A, influenza type B, RSV and SARS-CoV-2 showed not detected. Due to the patient's presenting symptoms a chest x-ray was completed which showed small bilateral pleural eff usions and mild cardiomegaly. For further evaluation a CT angio chest was completed which demonstrated no CT evidence for acute pulmonary embolism, moderate to borderline large pericardial effusion, and cardiomegaly with small right and left pleural effusions. Due to the findings of pericardial effusion the patient underwent a transthoracic 2D echocardiogram which demonstrated a normal LV size, a left ventricular ejection fraction estimated at 40 to 45%, mild aortic valve insufficiency, trace tricuspid valve regurgitation, no pulmonic valve regurgitation, paradoxical septal motion due to paced rhythm, a large global pericardial effusion and signs of early tamponade with systolic right atrial collapse and mitral inflow variance with inspiration. Subsequently, due to the findings of a moderate to large sized pericardial effusion a consult was placed to Dr. Vikram Gallegos from cardiothoracic surgery for further evaluation and treatment recommendations. Review of Systems A 14 point review of systems was completed and was negative except as mentioned in the HPI. 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 History of Any Multi-Drug Resistant Organisms: None Reported Past Surgical History: Heart Catheterization With Stent, Pacemaker Additional Past Surgical History / Comment(s): throat lesions from HPV removed, pilonidal cyst removed Past Anesthesia/Blood Transfusion Reactions: No Reported Reaction Date of Last Stent Placement:: 2022 Type of Cardiac Device: Permanent Pacemaker (Dual-chamber permanent pacemaker placement) Device Placement Date:: May 2023 Past Psychological History: Anxiety Smoking Status: Former smoker Past Alcohol Use History: Occasional Additional Past Alcohol Use History / Comment(s): quit smoking 13 yrs. ago, smoked since age of 13, <ppd Past Drug Use History: Marijuana Additional Drug Use History / Comment(s): occasional use - Past Family History Father Family Medical History: Diabetes Mellitus, Myocardial Infarction (ME) Medications and Allergies Home Medications Medication Instructions Recorded Confirmed Type glipiZIDE [Glucotrol] 10 mg PO DAILY 08/24/17 07/22/23 History lisinopriL [Zestril] 10 mg PO DAILY 08/24/17 07/22/23 History metFORMIN HCL ER [Glucophage XR] 1,000 mg PO BID 08/24/17 07/22/23 History Atorvastatin [Lipitor] 80 mg PO HS 08/30/20 07/22/23 History Aspirin EC [Ecotrin Low Dose] 81 mg PO DAILY 06/01/23 07/22/23 History Multivitamins, Thera [Multivitamin 1 tab PO DAILY 06/01/23 07/22/23 History (formulary)] Lee-3/Dha/Epa/Fish Oil [Fish Oil 1 cap PO DAILY 06/01/23 07/22/23 History 1,000 mg Softgel] Omeprazole [PriLOSEC] 20 mg PO DAILY PRN 06/01/23 07/22/23 History Testosterone Cypionate 200 mg IM Q14D 06/01/23 07/22/23 History [Depo-Testosterone] Dulaglutide [Trulicity] 3 mg SQ WE 07/22/23 07/22/23 History amLODIPine [Norvasc] 10 mg PO DAILY 07/22/23 07/22/23 History Allergies Allergy/AdvReac Type Severity Reaction Status Date / Time liraglutide [From Victoza] AdvReac Nausea & Verified 07/22/23 15:05 Vomiting/Weakness Surgical - Exam Vital Signs Temp Pulse Resp BP Pulse Ox 97.8 F 104 H 22 119/74 94 L 07/22/23 12:48 07/22/23 12:48 07/22/23 12:48 07/22/23 12:48 07/22/23 12:48 - General well developed, well nourished, no distress, no pain, chronically ill - Eyes PERRL, normal ocular movement, no pale, no icteric - ENT normal pinna, normal nares, normal mucosa, no hearing loss, no congestion - Neck Brisk carotid uptake, bilateral jugular vein distention. no masses, trachea midline - Respiratory Lungs essentially clear throughout, diminished to his bilateral bases. No wheezes, rhonchi or crackles. Respirations are symmetrical and nonlabored. Oxygen saturations are 96% on 2 L nasal cannula. - Cardiovascular Regular rhythm and rate. Distant S1 and S2, negative for S3, gallop or murmurs. - Abdomen Abdomen is soft, nontender nondistended. Active bowel sounds present all 4 abdominal quadrants. No guarding rigidity. No organomegaly appreciated. - Genitourinary Deferred - Rectum Deferred - Integumentary Skin is warm and dry. No clubbing or cyanosis is present. +1 to +2 pitting edema to his bilateral lower extremities. no rash, no growths, no abnormal pigmentation - Neurologic No focal deficits. Cranial nerves II through XII intact. normal coordination, normal sensation - Musculoskeletal Moves all 4 extremities with equal strength bilateral. normal gait - Psychiatric oriented to time, oriented to person, oriented to place, speech is normal, memory intact Results - Labs 07/23/23 08:12 07/24/23 06:15 Abnormal Lab Results - Last 24 Hours (Table) 07/23/23 07/23/23 07/23/23 Range/Units 10:37 11:18 16:26 Sodium (137-145) mmol/L Potassium (3.5-5.1) mmol/L Chloride (98-107) mmol/L Carbon Dioxide (22-30) mmol/L BUN (9-20) mg/dL Creatinine (0.66-1.25) mg/dL Glucose (74-99) mg/dL POC Glucose (mg/dL) 308 H 213 H (70-110) mg/dL C-Reactive Protein 6.6 H (<1.0) mg/dL 07/23/23 07/24/23 07/24/23 Range/Units 20:23 06:07 06:15 Sodium 128 L (137-145) mmol/L Potassium 5.2 H (3.5-5.1) mmol/L Chloride 96 L (98-107) mmol/L Carbon Dioxide 21 L (22-30) mmol/L BUN 47 H (9-20) mg/dL Creatinine 1.40 H (0.66-1.25) mg/dL Glucose 153 H (74-99) mg/dL POC Glucose (mg/dL) 134 H 169 H (70-110) mg/dL C-Reactive Protein (<1.0) mg/dL Diabetes panel 07/24/23 Range/Units 06:15 Sodium 128 L (137-145) mmol/L Potassium 5.2 H (3.5-5.1) mmol/L Chloride 96 L (98-107) mmol/L Carbon Dioxide 21 L (22-30) mmol/L BUN 47 H (9-20) mg/dL Creatinine 1.40 H (0.66-1.25) mg/dL Glucose 153 H (74-99) mg/dL Calcium 9.0 (8.4-10.2) mg/dL Calcium panel 07/24/23 Range/Units 06:15 Calcium 9.0 (8.4-10.2) mg/dL Pituitary panel 07/24/23 Range/Units 06:15 Sodium 128 L (137-145) mmol/L Potassium 5.2 H (3.5-5.1) mmol/L Chloride 96 L (98-107) mmol/L Carbon Dioxide 21 L (22-30) mmol/L BUN 47 H (9-20) mg/dL Creatinine 1.40 H (0.66-1.25) mg/dL Glucose 153 H (74-99) mg/dL Calcium 9.0 (8.4-10.2) mg/dL Adrenal panel 07/24/23 Range/Units 06:15 Sodium 128 L (137-145) mmol/L Potassium 5.2 H (3.5-5.1) mmol/L Chloride 96 L (98-107) mmol/L Carbon Dioxide 21 L (22-30) mmol/L BUN 47 H (9-20) mg/dL Creatinine 1.40 H (0.66-1.25) mg/dL Glucose 153 H (74-99) mg/dL Calcium 9.0 (8.4-10.2) mg/dL - Imaging Chest x-ray: report reviewed, image reviewed CT scan - chest: report reviewed, image reviewed EKG: image reviewed Additional studies: Transthoracic 2D echocardiogram results reviewed. Assessment and Plan Assessment: Moderate to large circumferential pericardial effusion Acute CHF exacerbation, ejection fraction 40 to 45% History of chronotropic incompetence, second-degree type II AV block, status post placement dual-chamber permanent pacemaker on June 01, 2023 History of coronary artery disease, status post PCI to his mid distal left circumflex in 2019 Hypertension Dyslipidemia, treated Type 2 diabetes mellitus, poorly controlled History of HPV throat cancer, status post 28 radiation treatment in 2020 Chronic head tremor GERD Osteoarthritis Remote history of nicotine dependence Occasional marijuana use Plan: The patient was seen and examined at his bedside on the third floor cardiac stepdown unit. His chart and diagnostics reviewed. His case was discussed in detail with Dr. Vikram Gallegos from cardiothoracic surgery. Treatment options were discussed with the patient including pericardial window. The patient will be tentatively scheduled for a pericardial window this afternoon July 24, 2023 to be completed by Dr. Vikram Gallegos. He has been made nothing by mouth. The patient reports that he had a second transthoracic 2D echocardiogram completed, although the results are unavailable at this time. A type and screen has been sent. The patient has been started on colchicine 0.6 mg p.o. twice daily by cardiology. We will order an incentive spirometry encourage use 10 times every hour while awake. Medical management and other comorbidities per primary care service and cardiology. More recommendations to follow based on patient's clinical course. Thank you Dr. Herron for this consult and we look forward to working with you in the care of this patient. I have personally seen and examined the patient, performed the documentation and the assessment and plan as written. Number of minutes spent on the visit: 30. GEM Doe
--- NOTE | 2023-07-24 12:05 | P.PN ---
Subjective Progress Note Date: 07/24/23 Pt still reporting dyspnea and orthopnea. Intermittent chills/sweats. No fevers. Started on IV lasix by cardiology. CT surgery consulted and plan is for pericardial windown today Gen: in no apparent distress, resting comfortably in bed Eyes: PERRL, no scleral injection or icterus HENT: normocephalic, atraumatic, good hearing acuity, moist mucous membranes Neck: no tracheal deviation, full range of motion Resp: good air exchange, breathing comfortably with no accessory muscle use, no tactile fremitus CVS: good distal perfusion x 4, bilateral pitting edema GI: soft, NTTP, ND, no hepatosplenomegaly : no suprapubic tenderness, no CVAT, moralez catheter not present MSK: no clubbing, no cyanosis, no noted contractures of extremities Skin: no noted rashes, petechiae; temperature of skin is appropriate Neuro: moving all extremities without signs of weakness, CN II-XII intact Psych: cooperative, euthymic mood, insight and judgment intact Hospital Course: 67-year-old male with medical history of CAD status post PCI in 2019 followed by dual-chamber permanent pacemaker placement in May 2023 for high degree AV block as well as new left bundle branch block, systolic heart failure with an ej ection fraction of 45%, hypertension, hyperlipidemia presented for evaluation of dyspnea on exertion as well as epigastric pain. In the emergency room, patient was afebrile, 119/74, heart rate 104, 94% on room air. CBC demonstrated hemoglobin of 11.8, platelets of 467, lymphopenia 0.6. Sodium is 127, chloride is 97, CO2 of 20, BUN of 32, creatinine is 1.01, glucose is 317, alkaline phosphatase is 436, troponin is less than 0.012, BNP is 527. Influenza A, B, RSV, COVID were negative. EKG demonstrates atrial sensed ventricular paced rhythm at a rate of 103. Chest x-ray demonstrated cardiomegaly with mild left- sided pleural effusion, increased pulmonary vascularity. CT angiography shows no evidence of pulmonary embolism, but does demonstrate moderate to large pericardial effusion, cardiomegaly with small right vertebral left pleural effusions. Assessment/plan: Pericardial effusion Acute systolic heart failure exacerbation, ejection fraction 45% KALLIE -Admit patient to inpatient status -Cardiology consult appreciated -Lasix 40mg IV BID -Differential includes: Constrictive effusive pericarditis, iatrogenic pericardial effusion, volume overload from heart failure -CT surgery is consulted, pt to proceed to pericardial window today -Interrogate patient's pacemaker to ensure that it is still capturing well without significant impedance Status post permanent pacemaker placement Hypertension Hyperlipidemia CAD -Home medications reviewed and reconciled Patient is full code Objective - Vital Signs Vital signs: Vital Signs Temp 98.2 F 07/24/23 08:05 Pulse 85 07/24/23 11:25 Resp 16 07/24/23 11:25 BP 110/79 07/24/23 11:25 Pulse Ox 94 L 07/24/23 11:25 FiO2 Intake & Output 07/23/23 07/24/23 07/24/23 18:59 06:59 18:59 Intake Total 420 118 Output Total 700 Balance 420 -582 Weight 89.7 kg Intake: Oral 420 118 Output: Urine 700 Other: Voiding Method Toilet Toilet # Voids 1 - Labs CBC & Chem 7: 07/23/23 08:12 07/24/23 06:15 Labs: Abnormal Lab Results - Last 24 Hours (Table) 07/23/23 07/23/23 07/24/23 Range/Units 16:26 20:23 06:07 Sodium (137-145) mmol/L Potassium (3.5-5.1) mmol/L Chloride (98-107) mmol/L Carbon Dioxide (22-30) mmol/L BUN (9-20) mg/dL Creatinine (0.66-1.25) mg/dL Glucose (74-99) mg/dL POC Glucose (mg/dL) 213 H 134 H 169 H (70-110) mg/dL 07/24/23 07/24/23 Range/Units 06:15 11:31 Sodium 128 L (137-145) mmol/L Potassium 5.2 H (3.5-5.1) mmol/L Chloride 96 L (98-107) mmol/L Carbon Dioxide 21 L (22-30) mmol/L BUN 47 H (9-20) mg/dL Creatinine 1.40 H (0.66-1.25) mg/dL Glucose 153 H (74-99) mg/dL POC Glucose (mg/dL) 385 H (70-110) mg/dL
[2023-07-24 14:40] LABS: Glucose,Whole Blood 270 mg/dL (70-110)
[2023-07-24] MEDS: SODIUM CHLORIDE 0.9% 500 ML 500 ML IV ONE (14:42)
[2023-07-24] MEDS ORDERED: GLYCOPYRROLATE 0.2 MG/ML 2 ML VIAL ONE (15:13)
[2023-07-24] MEDS ORDERED: MIDAZOLAM 2 MG/2 ML VIAL ONE (15:13)
[2023-07-24] MEDS ORDERED: KETAMINE HCL IN 0.9 % NACL 50 MG/5 ML SYRINGE ONE (15:13)
[2023-07-24] MEDS ORDERED: ONDANSETRON 4 MG/2 ML VIAL ONE (15:13)
[2023-07-24] MEDS ORDERED: fentaNYL (PF) 50 MCG/ML 2 ML AMP ONE (15:13)
[2023-07-24] MEDS: LORazepam 2 MG/ML INJ IV STA (15:16)
[2023-07-24] MEDS: LIDOCAINE 1% INJ 10MG/ML (20 ML MDV) SQ ONE (15:42)
--- NOTE | 2023-07-24 16:23 | P.OP ---
Date of Procedure: 07/24/23 Preoperative Diagnosis: Pericardial effusion, chronic systolic congestive heart failure Postoperative Diagnosis: Same Procedure(s) Performed: Subxiphoid pericardial window Anesthesia: MAC Surgeon: Vikram Gallegos Wellness Manager #1: Elian Rodas Estimated Blood Loss (ml): 5 IV fluids (ml): 200 Pathology: other (Pericardium for culture and pathology, pericardial fluid for chemistry, cell count, culture, cytology) Condition: stable Disposition: PACU Indications for Procedure: 67-year-old male with known congestive heart failure underwent biV pacer implant June 02 and he was hunting 2 weeks ago when he had a "pulling twinge" given his chest cavity. Since that time he has been short of breath. He presented to the emergency department complaining of shortness of breath. Computed tomography scan demonstrated a circumferential pericardial effusion and bilateral pleural effusions greater on the right than the left. BNP was mildly elevated. Echocardiogram confirmed the presence of a large circumferential pericardial effusion. Patient was not clinically in pericardial tamponade. Pericardial drainage was requested and surgery was consulted. Operative Findings: Pericardial fluid was serous and dark brown in color. Proximally 500 mL was drained. The pericardium itself was mildly thickened but otherwise normal. Description of Procedure: Patient was brought to the operating room placed supine on the table. IV sedation sedation was administered. Anterior chest and upper abdomen were sterilely prepped and draped. One percent lidocaine was used for anesthesia. Incision was made in the midline over the lower portion of the xiphoid process and carried down through skin and subcutaneous tissue to the midline fascia. Fascia was incised in the midline and the incision extended up along the left side of the xiphoid process. Dissection was carried bluntly under the sternum and more lidocaine was administered. The diaphragm was grasped with a Juan J cl amp and retracted inferiorly. Pericardium was exposed anteriorly. Was incised with a Metzenbaum scissors and pericardial fluid was collected and evacuated with suction. Once the fluid was controlled and we could see, small portion of the pericardium was resected and sent for culture and specimen. Separate stab incision was made to the right of the initial incision and a 28-Sinhala pericardial chest tube was tunneled under the fascia. The end of the chest tube was inserted inferiorly along the diaphragm inside the pericardial space. Tube was secured at its exit site with 0 Ethibond suture. Midline fascia was closed with #1 Vicryl suture in the subcutaneous tissue was closed with the same suture. Skin was closed with a 3-0 Vicryl subcuticular stitch. Skin glue and dry sterile dressings were applied the patient was transferred to recovery in stable condition.
[2023-07-24] MEDS: HYDROmorphone 0.5 MG/0.5 ML SYRINGE IVP ONE ×2 (16:29→16:47)
[2023-07-24] MEDS: SODIUM CHLORIDE 0.9% 1,000 ML IV ONE (16:30)
[2023-07-24 16:54] LABS: Glucose,Whole Blood 183 mg/dL (70-110)
[2023-07-24 17:47] LABS: Glucose,Whole Blood 170 mg/dL (70-110)
--- NOTE | 2023-07-24 17:59 | XR ---
EXAMINATION TYPE: XR chest 1V portable DATE OF EXAM: 07/24/2023 COMPARISON: 07/22/2023 HISTORY: Postop pericardial window TECHNIQUE: Single frontal view of the chest is obtained. FINDINGS: There is a 2-lead cardiac pacemaker. There is been interval development of a retrocardiac opacity consistent with pneumonic infiltrate or atelectasis. Right lung remains clear. There is no pneumothorax or large pleural effusion. Cardiac silhouette is prominent but evaluation is limited by the AP portable technique. IMPRESSION: 1 Interval development of a retrocardiac opacity consistent with pneumonia or atelectasis. 2. Probable mild cardiomegaly without overt CHF.
[2023-07-24 20:24] LABS: Glucose,Whole Blood 181 mg/dL (70-110)
[2023-07-25 05:42] LABS: Glucose,Whole Blood 232 mg/dL (70-110)
[2023-07-25] MEDS ORDERED: ONDANSETRON 4 MG/2 ML VIAL IVP PRN (07:02)
[2023-07-25 07:33] LABS: Anisocytosis Slight; Basophils % (A) 1 %; Eosinophils % (A) 1 %; HCT 36.4 % (39.0-53.0); HGB 11.4 gm/dL (13.0-17.5); Lymphocytes # (A) 0.6 k/uL (1.0-4.8); Lymphocytes % (A) 8 %; MCH 27.4 pg (25.0-35.0); MCHC 31.4 g/dL (31.0-37.0); MCV 87.1 fL (80.0-100.0); Monocytes # (A) 0.7 k/uL (0-1.0); Monocytes % (A) 10 %; Neutrophils # (A) 5.2 k/uL (1.3-7.7); Neutrophils % (A) 79 %; Platelet Count 491 k/uL (150-450); RBC 4.18 m/uL (4.30-5.90); RDW 16.3 % (11.5-15.5); WBC 6.7 k/uL (3.8-10.6)
[2023-07-25 07:59] LABS: African American GFR (CKD) 82 (>60 ml/min/1.73 sqM); Anion Gap 7 mmol/L; Blood Urea Nitrogen 35 mg/dL (9-20); Calcium 8.2 mg/dL (8.4-10.2); Carbon Dioxide 22 mmol/L (22-30); Chloride 99 mmol/L (98-107); Glucose 202 mg/dL (74-99); Magnesium 1.7 mg/dL (1.6-2.3); Non-African American GFR(CKD) 71 (>60 ml/min/1.73 sqM); Potassium 4.8 mmol/L (3.5-5.1); Sodium 128 mmol/L (137-145)
[2023-07-25] MEDS ORDERED: bisacodyL 10 MG SUPP RECTAL PRN (09:00)
[2023-07-25] MEDS ORDERED: ACETAMINOPHEN IV (For NPO) 1,000 MG in EMPTY BAG 1 BAG IVPB SCH (10:00)
[2023-07-25] MEDS: traMADol 50 MG TAB PO SCH (10:01)
[2023-07-25] MEDS: HEPARIN SODIUM,PORCINE 5,000 UNIT/ML 1 ML VIAL SQ SCH (10:30)
[2023-07-25] MEDS: MAGNESIUM SULFATE-D5W PMX 1 GM in DEXTROSE/WATER 1 100ML.BAG IVPB ONE (11:37)
[2023-07-25 11:49] LABS: Glucose,Whole Blood 264 mg/dL (70-110)
--- NOTE | 2023-07-25 12:29 | P.PN ---
Subjective Progress Note Date: 07/25/23 Principal diagnosis: Pericardial effusion. 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 POD #1 Subxiphoid pericardial window with approximately 500 mL of serous and dark brown in color pericardial fluid drained. The patient was seen and examined in follow-up today July 25, 2023 at his bedside on the third floor cardiac stepdown unit. The patient is currently laying in bed, is awake, alert, oriented x 3 and is in no acute apparent distress. Denies any complaints of shortness of breath at this time, and states that his breathing feels much better since the procedure, although is complaining of some surgical type pain to his chest tube insertion site currently rating his pain 4 out of 10 on the pain scale. He states that the Tylenol is controlling his pain. Oxygen saturations are 93% on room air. Remote telemetry is showing paced rhythm with a heart rate of 95 bpm. Subxiphoid chest tube remains in place to low continuous wall suction -20 cm H2O. No air leak is present. Draining thin serosanguineous drainage with 15 mL output in the last 8 hours and 80 mL output since surgery. Laboratory and chest x-ray results reviewed. Objective - Vital Signs Vital signs: Vital Signs Temp 98.2 F 07/25/23 08:00 Pulse 92 07/25/23 08:00 Resp 18 07/25/23 08:00 BP 124/65 07/25/23 08:00 Pulse Ox 94 L 07/25/23 08:00 FiO2 Intake & Output 07/24/23 07/25/23 07/25/23 18:59 06:59 18:59 Intake Total 818 Output Total 760 1964 Balance 58 -1964 Weight 88.8 kg Intake: IV 700 Oral 118 Output: Chest Tube Drainage 40 15 Anterior Chest 40 15 Urine 700 1950 Estimated Blood Loss 20 Other: Voiding Method Toilet Toilet - Exam CONSTITUTIONAL: Sitting up in bed on the third floor cardiac stepdown unit, appears comfortable, cooperative, no apparent acute distress. HEENT: Neck is supple, no JVD, no lymphadenopathy. RESPIRATORY: Lungs sounds essentially clear throughout, diminished to his bilateral bases. Respirations are symmetrical and nonlabored. Currently on room air with oxygen saturations 93%. Strong cough. CARDIOVASCULAR: Regular rhythm and rate. S1 and S2 present, negative for S3, gallop or murmur. Palpable peripheral pulses bilaterally, +1 edema to his bilateral lower extremities. No calf pain or tenderness noted. GASTROINTESTINAL: Abdomen soft, nontender, nondistended. Active bowel sounds present 4 quadrants. Tolerating diet. Passing flatus. No guarding or rigidity. GENITOURINARY: Continues to void, 1950 mL of urine output in the last 8 hours. INTEGUMENTARY: Skin is warm and dry with no evidence of clubbing or cyanosis. Subxiphoid incision is clean, dry and approximated. No redness or drainage is present. NEUROLOGIC: Cranial nerves II through XII intact. No focal deficits. MUSKULOSKELETAL: Able to move all extremities, strength equal bilaterally. PSYCHIATRIC: Alert and oriented to person place and time, appropriate affect, intact judgment and insight. INVASIVE LINES AND TUBES: Subxiphoid chest tube present and connected to low continuous wall suction, no air leaks present. Subxiphoid chest tube with 15 mL of thin serosanguineous drainage overnight, 80 mL output since surgery. - Allied health notes Allied health notes reviewed: nursing - Labs CBC & Chem 7: 07/25/23 06:45 07/25/23 06:45 Labs: Abnormal Lab Results - Last 24 Hours (Table) 07/24/23 07/24/23 07/24/23 Range/Units 11:31 14:39 16:52 RBC (4.30-5.90) m/uL Hgb (13.0-17.5) gm/dL Hct (39.0-53.0) % RDW (11.5-15.5) % Plt Count (150-450) k/uL Lymphocytes # (1.0-4.8) k/uL Sodium (137-145) mmol/L BUN (9-20) mg/dL Glucose (74-99) mg/dL POC Glucose (mg/dL) 385 H 270 H 183 H (70-110) mg/dL Calcium (8.4-10.2) mg/dL 07/24/23 07/24/23 07/25/23 Range/Units 17:45 20:23 05:40 RBC (4.30-5.90) m/uL Hgb (13.0-17.5) gm/dL Hct (39.0-53.0) % RDW (11.5-15.5) % Plt Count (150-450) k/uL Lymphocytes # (1.0-4.8) k/uL Sodium (137-145) mmol/L BUN (9-20) mg/dL Glucose (74-99) mg/dL POC Glucose (mg/dL) 170 H 181 H 232 H (70-110) mg/dL Calcium (8.4-10.2) mg/dL 07/25/23 07/25/23 Range/Units 06:45 06:45 RBC 4.18 L (4.30-5.90) m/uL Hgb 11.4 L (13.0-17.5) gm/dL Hct 36.4 L (39.0-53.0) % RDW 16.3 H (11.5-15.5) % Plt Count 491 H (150-450) k/uL Lymphocytes # 0.6 L (1.0-4.8) k/uL Sodium 128 L (137-145) mmol/L BUN 35 H (9-20) mg/dL Glucose 202 H (74-99) mg/dL POC Glucose (mg/dL) (70-110) mg/dL Calcium 8.2 L (8.4-10.2) mg/dL - Imaging and Cardiology Chest x-ray: report reviewed, image reviewed Assessment and Plan Assessment: Moderate to large circumferential pericardial effusion, status post subxiphoid pericardial window Acute CHF exacerbation, ejection fraction 40 to 45% History of chronotropic incompetence, second-degree type II AV block, status post placement dual-chamber permanent pacemaker on June 01, 2023 History of coronary artery disease, status post PCI to his mid distal left circumflex in 2019 Hypertension Dyslipidemia, treated Type 2 diabetes mellitus, poorly controlled History of HPV throat cancer, status post 28 radiation treatment in 2020 Chronic head tremor GERD Osteoarthritis Remote history of nicotine dependence Occasional marijuana use Plan: Encourage use of incentive spirometry 10 times every hour while awake. Continue to monitor daily chest x-rays. Pain control per current as needed orders. We will remove his subxiphoid chest tube today. Continue to follow surgical specimen pericardial biopsy and pericardial fluid cytology. Increase activity as tolerated. Out of bed for all meals. Placed on 1500 mL fluid restriction, his sodium level is 128 today. Medical management and other comorbidities per primary care and cardiology service. We will keep his subxiphoid chest tube in to waterseal for another 24 hours. More recommendations to follow based on patient's clinical course. Time with Patient: Greater than 30
--- NOTE | 2023-07-25 12:55 | XR ---
EXAMINATION TYPE: XR chest 1V portable DATE OF EXAM: 07/25/2023 Comparison: 07/24/2023 Clinical History: 67-year-old male Post op Pericardial window Findings: The catheter for pericardial window is noted. Cardiac/pericardiac silhouette remains borderline enlar ged. I'm going small left and trace right pleural effusions. Retrocardiac opacity. Left anterior ches t wall pacemaker generator with right atrial and ventricular leads. Upper and mid lungs are clear. Impression: Catheter for pericardial window. Small left and trace right pleural effusions with adjacent atelectas is and/or consolidation especially at the left base. These appear to be slightly increased.
--- NOTE | 2023-07-25 13:22 | P.PN ---
Subjective Progress Note Date: 07/25/23 Hospital Course: 67-year-old male with medical history of CAD status post PCI in 2019 followed by dual-chamber permanent pacemaker placement in May 2023 for high degree AV block as well as new left bundle branch block, systolic heart failure with an ejection fraction of 45%, hypertension, hyperlipidemia presented for evaluation of dyspnea on exertion as well as epigastric pain. In the emergency room, patient was afebrile, 119/74, heart rate 104, 94% on room air. CBC demonstrated hemoglobin of 11.8, platelets of 467, lymphopenia 0.6. Sodium is 127, chloride is 97, CO2 of 20, BUN of 32, creatinine is 1.01, glucose is 317, alkaline phosphatase is 436, troponin is less than 0.012, BNP is 527. Influenza A, B, RSV, COVID were negative. EKG demonstrates atrial sensed ventricular paced rhythm at a rate of 103. Chest x-ray demonstrated cardiomegaly with mild left- sided pleural effusion, increased pulmonary vascularity. CT angiography shows no evidence of pulmonary embolism, but does demonstrate moderate to large pericardial effusion, cardiomegaly with small right vertebral left pleural effusions. Patient admitted for acute systolic heart failure exacerbation, KALLIE, pericardial effusion. Cardiology and CT surgery consulted. He underwent pericardial window, chest tube in place. Subjective: Patient seen and examined at bedside. No acute events overnight. Claims that he has some chest pain taking deep breath due to chest tube. Pertinent positives and negatives as discussed above, a complete review of systems was performed and all other systems are negative. Vitals Signs Reviewed. General: Nontoxic, no distress, appears at stated age Derm: Warm, dry Head: Atraumatic, normocephalic, symmetric Eyes: EOMI, no lid lag, anicteric sclera Mouth: No lip lesion, mucus membranes moist Cardiovascular: S1S2 reg, no murmur Lungs: CTA bilateral, no rhonchi, no rales, no accessory muscle use, chest tube in place Abdominal: Soft, nontender to palpation, no guarding, no appreciable organomegaly Ext: No gross muscle atrophy, 2+ lower extremity edema, no contractures Neuro: CN II-XI grossly intact, no focal neuro deficits Psych: Alert, oriented, appropriate affect Data Reviewed Today: Pertinent Labs: Hemoglobin 11.4, platelet 491, sodium 128, creatinine 1.08, blood sugars range between 1 81-2 32 Imaging: Chest x-ray independently interpreted, shows trace bilateral pleural effusions Assessment and Plan: Active: Moderate to large pericardial effusion status post pericardial window -CT surgery note reviewed, remove chest tube today -Biopsy and cytology pending -Also on colchicine 0.6 mg p.o. twice daily Acute systolic CHF exacerbation Hyponatremia, hypervolemic KALLIE, resolved -Continue IV Lasix 40 twice daily, monitor for electrolytes and renal function Daily weights, I's and O's also on fluid restriction at 1500 cc daily Cardiology following Chronic: Hypertension CAD History of high degree AV block, status post pacemaker Dyslipidemia DVT ppx: Subcu heparin Code status: Full code Anticipated discharge place: Pending clinical course pending clinical course Anticipated discharge time: Objective - Vital Signs Vital signs: Vital Signs Temp 97.9 F 07/25/23 11:10 Pulse 94 07/25/23 11:10 Resp 18 07/25/23 11:10 BP 142/79 07/25/23 11:10 Pulse Ox 93 L 07/25/23 11:10 FiO2 Intake & Output 07/24/23 07/25/23 07/25/23 18:59 06:59 18:59 Intake Total 818 Output Total 760 1965 1800 Balance 58 -1965 -1800 Weight 88.8 kg Intake: IV 700 Oral 118 Output: Chest Tube Drainage 40 15 0 Anterior Chest 40 15 0 Drainage 0 Right Chest 0 Urine 700 1950 1800 Estimated Blood Loss 20 Other: Voiding Method Toilet Toilet Toilet - Labs CBC & Chem 7: 07/25/23 06:45 07/25/23 06:45 Labs: Abnormal Lab Results - Last 24 Hours (Table) 07/24/23 07/24/23 07/24/23 Range/Units 14:39 16:52 17:45 RBC (4.30-5.90) m/uL Hgb (13.0-17.5) gm/dL Hct (39.0-53.0) % RDW (11.5-15.5) % Plt Count (150-450) k/uL Lymphocytes # (1.0-4.8) k/uL Sodium (137-145) mmol/L BUN (9-20) mg/dL Glucose (74-99) mg/dL POC Glucose (mg/dL) 270 H 183 H 170 H (70-110) mg/dL Calcium (8.4-10.2) mg/dL 07/24/23 07/25/23 07/25/23 Range/Units 20:23 05:40 06:45 RBC 4.18 L (4.30-5.90) m/uL Hgb 11.4 L (13.0-17.5) gm/dL Hct 36.4 L (39.0-53.0) % RDW 16.3 H (11.5-15.5) % Plt Count 491 H (150-450) k/uL Lymphocytes # 0.6 L (1.0-4.8) k/uL Sodium (137-145) mmol/L BUN (9-20) mg/dL Glucose (74-99) mg/dL POC Glucose (mg/dL) 181 H 232 H (70-110) mg/dL Calcium (8.4-10.2) mg/dL 07/25/23 07/25/23 Range/Units 06:45 11:48 RBC (4.30-5.90) m/uL Hgb (13.0-17.5) gm/dL Hct (39.0-53.0) % RDW (11.5-15.5) % Plt Count (150-450) k/uL Lymphocytes # (1.0-4.8) k/uL Sodium 128 L (137-145) mmol/L BUN 35 H (9-20) mg/dL Glucose 202 H (74-99) mg/dL POC Glucose (mg/dL) 264 H (70-110) mg/dL Calcium 8.2 L (8.4-10.2) mg/dL
--- NOTE | 2023-07-25 14:31 | P.PN ---
Subjective Progress Note Date: 07/25/23 HISTORY OF PRESENTING ILLNESS 57-year-old with PMH of CAD s/p PCI in 2019, dual-chamber PPM in May 2023 for chronotropic incompetence during stress test. His last echo from May 2023 showed an EF of 40 to 45% This time patient presented to the hospital because of worsening shortness of breath orthopnea and paroxysmal nocturnal dyspnea symptoms. He has also been complaining of substernal chest heaviness which is radiating to his scapula and mid back and right shoulder. This pain is mostly when he changes position. It is not related to any diaphoresis. Is also been complaining of some nausea and vomiting and has had poor oral intake throughout the day today. On admission blood pressure 90/70, heart rate 104, paced rhythm, 94% room air Hemoglobin 11.8, platelets 400, sodium 127, BUN 23, creatinine 1.01, glucose 317, ALP 436, troponin 0.01, BNP 500 Viral panel was negative ECG showed AV paced rhythm heart rate 103 Chest x-ray showed cardiomegaly and small pericardial effusion and pleural effusion CTA chest did not show any evidence of pulmonary embolism. It did show a large pericardial effusions, moderate to small right pleural effusion 07/23/2023 Patient seen and examined resting comfortably in bed in no acute distress. Yesterday after receiving a [place] he had an episode of feeling dizzy and lightheaded. Telemetry tracings unremarkable. Blood pressure 127/81 heart rate 89 afebrile maintaining oxygen saturation on nasal cannula. Laboratory data reviewed, hemoglobin 10.9, platelets 474, sodium 126, potassium 5.7, creatinine 1.52, CRP 6.6, sedimentation rate pending. 07/24 Yesterday Lasix was decreased to twice daily, 40 mg IV. He also received a dose of Kayexalate for potassium of 5.7. Repeat blood work today reveals sodium 128, potassium 5.2, BUN 47 creatinine 1.4. Heart rate is 80-94. Patient states that he has difficulty walking to the bathroom with shortness of breath. He denies having any chest pain, no tachycardia. He has trace lower extremity edema. 07/25 Patient is s/p pericardial window performed yesterday. He feels that he may have less shortness of breath today. Chest tubes in place. Blood pressure 124/65, heart rate is in the 80s to 90s, pulse ox 94% on room air. Repeat blood work reveals WBC 6.7, hemoglobin 9.4, platelet count 491. Sodium 128, potassium 4.8, BUN 35 and creatinine 1.08. Chest x-ray reveals catheter for pericardial window. Small left and trace right pleural effusions with adjacent atelectasis and or consolidation specially in the left base. Appears slightly increased. Patient states that he is using his incentive spirometry averaging 1500. He has been maintained on Lasix 40 mg IV twice daily. Weight appears to be down 1 kg. He has a negative fluid balance. PHYSICAL EXAMINATION Vital signs reviewed. Head: Normocephalic. Eyes: Sclerae nonicteric. Neck: Brisk carotid upstroke, has elevated jugular venous distention. Lungs: Clear to auscultation. Heart: Regular rate and rhythm, distant heart sounds S1-S2, no S3, no murmur or rub. Abdomen: Soft nontender, positive bowel sounds. Extremities: +1 edema bilateral lower extremity. Neuro: Alert, oritented, no focal deficits. Detailed neuro exam was not performed. 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 Coelho History of CAD s/p PCI to mid distal LCx 2019 Hypertension Type 2 diabetes Dyslipidemia PLAN Continue IV Lasix 40 mg twice daily. Continue colchicine 0.6 mg BID. Chest tube management per cardiothoracic surgery status post pericardial window Further recommendations to follow based upon clinical course. Nurse Practitioner note has been reviewed, I agree with a documented findings an d plan of care. Patient was seen and examined. Objective - Vital Signs Vital signs: Vital Signs Temp 98.2 F 07/25/23 08:00 Pulse 92 07/25/23 08:00 Resp 18 07/25/23 08:00 BP 124/65 07/25/23 08:00 Pulse Ox 94 L 07/25/23 08:00 FiO2 Intake & Output 07/24/23 07/25/23 07/25/23 18:59 06:59 18:59 Intake Total 818 Output Total 760 1965 Balance 58 -1964 Weight 88.8 kg Intake: IV 700 Oral 118 Output: Chest Tube Drainage 40 15 Anterior Chest 40 15 Urine 700 1950 Estimated Blood Loss 20 Other: Voiding Method Toilet Toilet - Labs CBC & Chem 7: 07/25/23 06:45 07/25/23 06:45 Labs: Abnormal Lab Results - Last 24 Hours (Table) 07/24/23 07/24/23 07/24/23 Range/Units 11:31 14:39 16:52 RBC (4.30-5.90) m/uL Hgb (13.0-17.5) gm/dL Hct (39.0-53.0) % RDW (11.5-15.5) % Plt Count (150-450) k/uL Lymphocytes # (1.0-4.8) k/uL Sodium (137-145) mmol/L BUN (9-20) mg/dL Glucose (74-99) mg/dL POC Glucose (mg/dL) 385 H 270 H 183 H (70-110) mg/dL Calcium (8.4-10.2) mg/dL 07/24/23 07/24/23 07/25/23 Range/Units 17:45 20:23 05:40 RBC (4.30-5.90) m/uL Hgb (13.0-17.5) gm/dL Hct (39.0-53.0) % RDW (11.5-15.5) % Plt Count (150-450) k/uL Lymphocytes # (1.0-4.8) k/uL Sodium (137-145) mmol/L BUN (9-20) mg/dL Glucose (74-99) mg/dL POC Glucose (mg/dL) 170 H 181 H 232 H (70-110) mg/dL Calcium (8.4-10.2) mg/dL 07/25/23 07/25/23 Range/Units 06:45 06:45 RBC 4.18 L (4.30-5.90) m/uL Hgb 11.4 L (13.0-17.5) gm/dL Hct 36.4 L (39.0-53.0) % RDW 16.3 H (11.5-15.5) % Plt Count 491 H (150-450) k/uL Lymphocytes # 0.6 L (1.0-4.8) k/uL Sodium 128 L (137-145) mmol/L BUN 35 H (9-20) mg/dL Glucose 202 H (74-99) mg/dL POC Glucose (mg/dL) (70-110) mg/dL Calcium 8.2 L (8.4-10.2) mg/dL
[2023-07-25 16:07] LABS: Glucose,Whole Blood 287 mg/dL (70-110)
[2023-07-25 19:57] LABS: Glucose,Whole Blood 206 mg/dL (70-110)
[2023-07-25] MEDS: ACETAMINOPHEN TAB 500 MG TAB PO PRN (21:16)
[2023-07-26 05:55] LABS: Glucose,Whole Blood 194 mg/dL (70-110)
[2023-07-26 09:01] LABS: ALT 64 U/L (4-49); AST 65 U/L (17-59); African American GFR (CKD) >90 (>60 ml/min/1.73 sqM); Albumin 3.2 g/dL (3.5-5.0); Alkaline Phosphatase 442 U/L (38-126); Anion Gap 6 mmol/L; Blood Urea Nitrogen 23 mg/dL (9-20); Calcium 8.4 mg/dL (8.4-10.2); Carbon Dioxide 29 mmol/L (22-30); Chloride 95 mmol/L (98-107); Glucose 245 mg/dL (74-99); Non-African American GFR(CKD) >90 (>60 ml/min/1.73 sqM); Potassium 4.5 mmol/L (3.5-5.1); Sodium 130 mmol/L (137-145); Total Protein 6.2 g/dL (6.3-8.2)
[2023-07-26] MEDS: amLODIPine 10 MG TAB PO SCH (09:01)
[2023-07-26] MEDS: ASPIRIN 81 MG PO SCH (09:01)
[2023-07-26] MEDS: lisinopriL 10 MG TAB PO SCH (09:02)
--- NOTE | 2023-07-26 09:08 | P.PN ---
Subjective Progress Note Date: 07/26/23 Principal diagnosis: Pericardial effusion. Previous medical history of coronary artery disease with previous myocardial infarction and PCI in 2019, congestive heart failure with re duced ejection fraction 40-45%, hypertension, hyperlipidemia, chronotropic incompetence status post dual-chamber pacemaker placement in May 2023, diabetes mellitus type 2, GERD, osteoarthritis, previous tobacco dependence, occasional marijuana use, HPV, throat cancer status post 28 radiation treatments in 2020, head tremors and anxiety. POD #2 Subxiphoid pericardial window with approximately 500 mL of serous and dark brown in color pericardial fluid drained. The patient was seen and examined sitting up in recliner on the cardiac stepdown unit in no acute distress while eating breakfast. He denies any chest pain or shortness of breath. States he feels significantly better than when he came in. Medial chest tube remains present to waterseal with 40 mL serosanguineous drainage in the last 24 hours. Patient has been ambulatory without difficulty. No other new concerns. Objective - Vital Signs Vital signs: Vital Signs Temp 97.8 F 07/25/23 20:00 Pulse 77 07/26/23 04:00 Resp 16 07/26/23 04:00 BP 118/71 07/26/23 04:00 Pulse Ox 95 07/26/23 04:00 FiO2 Intake & Output 07/25/23 07/26/23 07/26/23 18:59 06:59 18:59 Intake Total 1500 Output Total 1818 1208 Balance -318 -1208 Weight 92.5 kg Intake: Oral 1500 Output: Chest Tube Drainage 18 8 Anterior Chest 18 8 Drainage 0 Right Chest 0 Urine 1800 1200 Other: Voiding Method Toilet Toilet Urinal Urinal - Exam CONSTITUTIONAL: Appears comfortable, cooperative, no acute distress RESPIRATORY: Lungs sounds diminished bilaterally. Respirations even, nonlabored. Currently on room air with oxygen saturation 95%. Able to achieve 1000 mL on incentive spirometry. Strong cough. CARDIOVASCULAR: S1, S2 present. Regular rate and rhythm, ventricular paced on telemetry. Palpable peripheral pulses bilaterally. No edema present. No calf pain or tenderness noted GASTROINTESTINAL: Abdomen soft, nontender, nondistended. Active bowel sounds present 4 quadrants. Tolerating diet GENITOURINARY: Continues to void, output 3000 mL in the last 24 hours INTEGUMENTARY: Skin is warm and dry NEUROLOGIC: Cranial nerves II through XII intact MUSKULOSKELETAL: Able to move all extremities, strength equal bilaterally, gait normal PSYCHIATRIC: Alert and oriented to person place and time, appropriate affect, intact judgment and insight INVASIVE LINES AND TUBES: Mediastinal chest tube present to waterseal, 10 mL serosanguineous drainage overnight, 40 mL in the last 24 hours - Allied health notes Allied health notes reviewed: nursing - Labs CBC & Chem 7: 07/25/23 06:45 07/25/23 06:45 Labs: Abnormal Lab Results - Last 24 Hours (Table) 07/25/23 07/25/23 07/25/23 Range/Units 06:45 06:45 11:48 RBC 4.18 L (4.30-5.90) m/uL Hgb 11.4 L (13.0-17.5) gm/dL Hct 36.4 L (39.0-53.0) % RDW 16.3 H (11.5-15.5) % Plt Count 491 H (150-450) k/uL Lymphocytes # 0.6 L (1.0-4.8) k/uL Sodium 128 L (137-145) mmol/L BUN 35 H (9-20) mg/dL Glucose 202 H (74-99) mg/dL POC Glucose (mg/dL) 264 H (70-110) mg/dL Calcium 8.2 L (8.4-10.2) mg/dL 07/25/23 07/25/23 07/26/23 Range/Units 16:06 19:55 05:54 RBC (4.30-5.90) m/uL Hgb (13.0-17.5) gm/dL Hct (39.0-53.0) % RDW (11.5-15.5) % Plt Count (150-450) k/uL Lymphocytes # (1.0-4.8) k/uL Sodium (137-145) mmol/L BUN (9-20) mg/dL Glucose (74-99) mg/dL POC Glucose (mg/dL) 287 H 206 H 194 H (70-110) mg/dL Calcium (8.4-10.2) mg/dL Microbiology - Last 24 Hours (Table) 07/25/23 15:57 Gram Stain - Preliminary Other - Other 07/24/23 15:57 Gram Stain - Preliminary Pericardial Fluid - Imaging and Cardiology Chest x-ray: image reviewed Assessment and Plan Assessment: Moderate to large circumferential pericardial effusion, status post subxiphoid pericardial window Acute on chronic congestive heart failure with reduced ejection fraction 40-45% History of coronary artery disease with previous myocardial infarction and PCI in 2019 Hypertension Hyperlipidemia Chronotropic incompetence status post dual-chamber pacemaker placement in May 2023 Diabetes mellitus type 2 GERD Osteoarthritis Previous tobacco dependence Occasional marijuana use HPV Throat cancer status post 28 radiation treatments in 2020 Head tremors Anxiety Plan: Will discontinue subxiphoid chest tube today Continue to follow surgical specimen pericardial biopsy and pericardial fluid cytology Encourage use of incentive spirometry 10 times every hour while awake Pain control per current medication regimen Increase activity as tolerated. Out of bed for all meals. Medical management of other comorbidities per primary care and cardiology More recommendations to follow
--- NOTE | 2023-07-26 11:32 | XR ---
EXAMINATION TYPE: XR chest 1V portable DATE OF EXAM: 07/26/2023 Comparison: 07/25/2023 Clinical History: 67-year-old male Postop pericardial window Findings: Left anterior chest wall pacemaker generator with right atrial and right ventricular leads. Pericardi al catheter is noted. Heart remains upper limits of normal in size. Ongoing small left pleural effusi on with left basilar retrocardiac opacity. Impression: Similar borderline heart size. Ongoing small left pleural effusion with prominent adjacent atelectasi s and/or consolidation at the left base. Pericardial catheter in place.
[2023-07-26 11:46] LABS: Glucose,Whole Blood 318 mg/dL (70-110)
--- NOTE | 2023-07-26 12:41 | P.PN ---
Subjective Progress Note Date: 07/26/23 Hospital Course: 67-year-old male with medical history of CAD status post PCI in 2019 followed by dual-chamber permanent pacemaker placement in May 2023 for high degree AV block as well as new left bundle branch block, systolic heart failure with an ejection fraction of 45%, hypertension, hyperlipidemia presented for evaluation of dyspnea on exertion as well as epigastric pain. In the emergency room, patient was afebrile, 119/74, heart rate 104, 94% on room air. CBC demonstrated hemoglobin of 11.8, platelets of 467, lymphopenia 0.6. Sodium is 127, chloride is 97, CO2 of 20, BUN of 32, creatinine is 1.01, glucose is 317, alkaline phosphatase is 436, troponin is less than 0.012, BNP is 527. Influenza A, B, RSV, COVID were negative. EKG demonstrates atrial sensed ventricular paced rhythm at a rate of 103. Chest x-ray demonstrated cardiomegaly with mild left- sided pleural effusion, increased pulmonary vascularity. CT angiography shows no evidence of pulmonary embolism, but does demonstrate moderate to large pericardial effusion, cardiomegaly with small right vertebral left pleural effusions. Patient admitted for acute systolic heart failure exacerbation, KALLIE, pericardial effusion. Cardiology and CT surgery consulted. He underwent pericardial window, chest tube in place. Subjective: Patient seen and examined at bedside. No acute events overnight. Claims that he has some chest pain taking deep breath due to chest tube. Pertinent positives and negatives as discussed above, a complete review of systems was performed and all other systems are negative. Vitals Signs Reviewed. General: Nontoxic, no distress, appears at stated age Derm: Warm, dry Head: Atraumatic, normocephalic, symmetric Eyes: EOMI, no lid lag, anicteric sclera Mouth: No lip lesion, mucus membranes moist Cardiovascular: S1S2 reg, no murmur Lungs: CTA bilateral, no rhonchi, no rales, no accessory muscle use, chest tube in place Abdominal: Soft, nontender to palpation, no guarding, no appreciable organomegaly Ext: No gross muscle atrophy, 2+ lower extremity edema, no contractures Neuro: CN II-XI grossly intact, no focal neuro deficits Psych: Alert, oriented, appropriate affect Data Reviewed Today: Pertinent Labs: Sodium 130, creatinine 0.84, blood sugars range between 194-318 Imaging: Chest x-ray independently interpreted, shows trace bilateral pleural effusions Assessment and Plan: Active: Moderate to large pericardial effusion status post pericardial window -CT surgery note reviewed, remove chest tube today -Biopsy and cytology pending -Also on colchicine 0.6 mg p.o. twice daily Acute systolic CHF exacerbation Hyponatremia, hypervolemic, improving KALLIE, resolved -Continue IV Lasix 40 twice daily, monitor for electrolytes and renal function -Daily weights, I's and O's also on fluid restriction at 1500 cc daily -Cardiology following Type 2 diabetes -on sliding scale insulin, monitor for hypoglycemia Chronic: Hypertension CAD History of high degree AV block, status post pacemaker Dyslipidemia DVT ppx: Subcu heparin Code status: Full code Anticipated discharge place: Pending clinical course Anticipated discharge time: pending clinical course Objective - Vital Signs Vital signs: Vital Signs Temp 98.1 F 07/26/23 11:31 Pulse 78 07/26/23 11:31 Resp 16 07/26/23 11:31 BP 111/73 07/26/23 11:31 Pulse Ox 94 L 07/26/23 11:31 FiO2 Intake & Output 07/25/23 07/26/23 07/26/23 18:59 06:59 18:59 Intake Total 1500 180 Output Total 1818 1208 1450 Balance -784 -6853 -9618 Weight 92.5 kg 88 kg Intake: Oral 1500 180 Output: Chest Tube Drainage 18 8 Anterior Chest 18 8 Drainage 0 Right Chest 0 Urine 1800 1200 1450 Other: Voiding Method Toilet Toilet Toilet Urinal Urinal Urinal # Voids 1 - Labs CBC & Chem 7: 07/25/23 06:45 07/26/23 07:59 Labs: Abnormal Lab Results - Last 24 Hours (Table) 07/25/23 07/25/23 07/26/23 Range/Units 16:06 19:55 05:54 Sodium (137-145) mmol/L Chloride (98-107) mmol/L BUN (9-20) mg/dL Glucose (74-99) mg/dL POC Glucose (mg/dL) 287 H 206 H 194 H (70-110) mg/dL AST (17-59) U/L ALT (4-49) U/L Alkaline Phosphatase (38-126) U/L Total Protein (6.3-8.2) g/dL Albumin (3.5-5.0) g/dL 07/26/23 07/26/23 Range/Units 07:59 11:44 Sodium 130 L (137-145) mmol/L Chloride 95 L (98-107) mmol/L BUN 23 H (9-20) mg/dL Glucose 245 H (74-99) mg/dL POC Glucose (mg/dL) 318 H (70-110) mg/dL AST 65 H (17-59) U/L ALT 64 H (4-49) U/L Alkaline Phosphatase 442 H (38-126) U/L Total Protein 6.2 L (6.3-8.2) g/dL Albumin 3.2 L (3.5-5.0) g/dL Microbiology - Last 24 Hours (Table) 07/25/23 15:57 Gram Stain - Preliminary Other - Other Tissue Culture - Preliminary 07/24/23 15:57 Gram Stain - Preliminary Pericardial Fluid Body Fluid Culture - Preliminary
--- NOTE | 2023-07-26 12:43 | P.PN ---
Subjective Progress Note Date: 07/26/23 HISTORY OF PRESENTING ILLNESS 57-year-old with PMH of CAD s/p PCI in 2019, dual-chamber PPM in May 2023 for chronotropic incompetence during stress test. His last echo from May 2023 showed an EF of 40 to 45% This time patient presented to the hospital because of worsening shortness of breath orthopnea and paroxysmal nocturnal dyspnea symptoms. He has also been complaining of substernal chest heaviness which is radiating to his scapula and mid back and right shoulder. This pain is mostly when he changes position. It is not related to any diaphoresis. Is also been complaining of some nausea and vomiting and has had poor oral intake throughout the day today. On admission blood pressure 90/70, heart rate 104, paced rhythm, 94% room air Hemoglobin 11.8, platelets 400, sodium 127, BUN 23, creatinine 1.01, glucose 317, ALP 436, troponin 0.01, BNP 500 Viral panel was negative ECG showed AV paced rhythm heart rate 103 Chest x-ray showed cardiomegaly and small pericardial effusion and pleural effusion CTA chest did not show any evidence of pulmonary embolism. It did show a large pericardial effusions, moderate to small right pleural effusion 07/23/2023 Patient seen and examined resting comfortably in bed in no acute distress. Yesterday after receiving a [place] he had an episode of feeling dizzy and lightheaded. Telemetry tracings unremarkable. Blood pressure 127/81 heart rate 89 afebrile maintaining oxygen saturation on nasal cannula. Laboratory data reviewed, hemoglobin 10.9, platelets 474, sodium 126, potassium 5.7, creatinine 1.52, CRP 6.6, sedimentation rate pending. 07/24 Yesterday Lasix was decreased to twice daily, 40 mg IV. He also received a dose of Kayexalate for potassium of 5.7. Repeat blood work today reveals sodium 128, potassium 5.2, BUN 47 creatinine 1.4. Heart rate is 80-94. Patient states that he has difficulty walking to the bathroom with shortness of breath. He denies having any chest pain, no tachycardia. He has trace lower extremity edema. 07/25 Patient is s/p pericardial window performed yesterday. He feels that he may have less shortness of breath today. Chest tubes in place. Blood pressure 124/65, heart rate is in the 80s to 90s, pulse ox 94% on room air. Repeat blood work reveals WBC 6.7, hemoglobin 9.4, platelet count 491. Sodium 128, potassium 4.8, BUN 35 and creatinine 1.08. Chest x-ray reveals catheter for pericardial window. Small left and trace right pleural effusions with adjacent atelectasis and or consolidation specially in the left base. Appears slightly increased. Patient states that he is using his incentive spirometry averaging 1500. He has been maintained on Lasix 40 mg IV twice daily. Weight appears to be down 1 kg. He has a negative fluid balance. 07/26 Patient is expecting his chest tube to be removed today and possible discharge home. He is feeling better today and lung sounds are better. He has been maintained on colchicine. Heart rate is in the 70s, blood pressure 111/73, pul se ox 93% on room air. Telemetry is a ventricularly paced rhythm. Repeat blood work reveals sodium of 130, potassium 4.5, BUN 23 creatinine 0.84. Patient has elevated liver function test with AST 65, ALT 64, alkaline phosphatase 442. Chest x-ray revealed similar borderline heart size. Ongoing small left pleural effusion with prominent adjacent atelectasis and or consolidation of the left base. Pericardial catheter in place PHYSICAL EXAMINATION Vital signs reviewed. Head: Normocephalic. Eyes: Sclerae nonicteric. Neck: Brisk carotid upstroke, has elevated jugular venous distention. Lungs: Clear to auscultation. Heart: Regular rate and rhythm, S1-S2, no S3, no murmur or rub. Abdomen: Soft nontender, positive bowel sounds. Extremities: +1 edema bilateral lower extremity. Neuro: Alert, oritented, no focal deficits. Detailed neuro exam was not performed. 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 Coelho History of CAD s/p PCI to mid distal LCx 2019 Hypertension Type 2 diabetes Dyslipidemia PLAN Continue IV Lasix 40 mg twice daily and may transition to oral for discharge. Continue colchicine 0.6 mg BID for 1 week and then decrease frequency to daily for 4 weeks. Chest tube management per cardiothoracic surgery status post pericardial window Patient is cleared for discharge later today after chest tube is removed. Patient will follow-up in the office in 1 to 2 weeks. Nurse Practitioner note has been reviewed, I agree with a documented findings and plan of care. Patient was seen and examined. Objective - Vital Signs Vital signs: Vital Signs Temp 98.0 F 07/26/23 07:38 Pulse 77 07/26/23 08:23 Resp 16 07/26/23 08:23 BP 130/76 07/26/23 07:38 Pulse Ox 94 L 07/26/23 07:38 FiO2 Intake & Output 07/25/23 07/26/23 07/26/23 18:59 06:59 18:59 Intake Total 1500 Output Total 1818 1208 400 Balance -318 -1208 -400 Weight 92.5 kg Intake: Oral 1500 Output: Chest Tube Drainage 18 8 Anterior Chest 18 8 Drainage 0 Right Chest 0 Urine 1800 1200 400 Other: Voiding Method Toilet Toilet Toilet Urinal Urinal Urinal # Voids 1 - Labs CBC & Chem 7: 07/25/23 06:45 07/26/23 07:59 Labs: Abnormal Lab Results - Last 24 Hours (Table) 07/25/23 07/25/23 07/25/23 Range/Units 11:48 16:06 19:55 Sodium (137-145) mmol/L Chloride (98-107) mmol/L BUN (9-20) mg/dL Glucose (74-99) mg/dL POC Glucose (mg/dL) 264 H 287 H 206 H (70-110) mg/dL AST (17-59) U/L ALT (4-49) U/L Alkaline Phosphatase (38-126) U/L Total Protein (6.3-8.2) g/dL Albumin (3.5-5.0) g/dL 07/26/23 07/26/23 Range/Units 05:54 07:59 Sodium 130 L (137-145) mmol/L Chloride 95 L (98-107) mmol/L BUN 23 H (9-20) mg/dL Glucose 245 H (74-99) mg/dL POC Glucose (mg/dL) 194 H (70-110) mg/dL AST 65 H (17-59) U/L ALT 64 H (4-49) U/L Alkaline Phosphatase 442 H (38-126) U/L Total Protein 6.2 L (6.3-8.2) g/dL Albumin 3.2 L (3.5-5.0) g/dL Microbiology - Last 24 Hours (Table) 07/25/23 15:57 Gram Stain - Preliminary Other - Other 07/24/23 15:57 Gram Stain - Preliminary Pericardial Fluid
[2023-07-26 16:41] LABS: Glucose,Whole Blood 262 mg/dL (70-110)
[2023-07-26 19:57] LABS: Glucose,Whole Blood 137 mg/dL (70-110)
[2023-07-27 05:51] VITALS: RESP 17
[2023-07-27 06:07] LABS: Glucose,Whole Blood 189 mg/dL (70-110)
[2023-07-27 09:22] LABS: Anisocytosis Slight; Basophils % (A) 1 %; Eosinophils # (A) 0.1 k/uL (0-0.7); Eosinophils % (A) 2 %; HCT 40.5 % (39.0-53.0); HGB 12.8 gm/dL (13.0-17.5); Hypochromasia Slight; Lymphocytes # (A) 0.8 k/uL (1.0-4.8); Lymphocytes % (A) 16 %; MCH 27.8 pg (25.0-35.0); MCHC 31.7 g/dL (31.0-37.0); MCV 87.7 fL (80.0-100.0); Mean Platelet Volume 7.2; Monocytes # (A) 0.5 k/uL (0-1.0); Monocytes % (A) 9 %; Neutrophils # (A) 3.7 k/uL (1.3-7.7); Neutrophils % (A) 70 %; Platelet Count 592 k/uL (150-450); RBC 4.61 m/uL (4.30-5.90); RDW 16.5 % (11.5-15.5); WBC 5.3 k/uL (3.8-10.6)
[2023-07-27 09:58] LABS: African American GFR (CKD) >90 (>60 ml/min/1.73 sqM); Anion Gap 8 mmol/L; Blood Urea Nitrogen 20 mg/dL (9-20); Calcium 8.2 mg/dL (8.4-10.2); Carbon Dioxide 29 mmol/L (22-30); Chloride 94 mmol/L (98-107); Glucose 268 mg/dL (74-99); Non-African American GFR(CKD) 86 (>60 ml/min/1.73 sqM); Potassium 4.3 mmol/L (3.5-5.1); Sodium 131 mmol/L (137-145)
--- NOTE | 2023-07-27 10:14 | P.PN ---
Subjective Progress Note Date: 07/27/23 Principal diagnosis: Pericardial effusion. Previous medical history of coronary artery disease with previous myocardial infarction and PCI in 2019, congestive heart failure with re duced ejection fraction 40-45%, hypertension, hyperlipidemia, chronotropic incompetence status post dual-chamber pacemaker placement in May 2023, diabetes mellitus type 2, GERD, osteoarthritis, previous tobacco dependence, occasional marijuana use, HPV, throat cancer status post 28 radiation treatments in 2020, head tremors and anxiety. POD #3 Subxiphoid pericardial window with approximately 500 mL of serous and dark brown in color pericardial fluid drained. The patient was seen and examined sitting up in recliner on the cardiac stepdown unit in no acute distress. He denies any chest pain or shortness of breath. States he feels significantly better than when he came in. Medial chest tube discontinued yesterday. Patient has been ambulatory without difficulty. No other new concerns. Objective - Vital Signs Vital signs: Vital Signs Temp 97.9 F 07/27/23 04:00 Pulse 77 07/27/23 04:00 Resp 17 07/27/23 04:00 BP 112/75 07/27/23 04:00 Pulse Ox 94 L 07/27/23 04:00 FiO2 Intake & Output 07/26/23 07/27/23 07/27/23 18:59 06:59 18:59 Intake Total 360 20 118 Output Total 2450 1100 Balance -2089 -1079 118 Weight 88 kg 86 kg Intake: IV 20 Invasive Line 1 20 Oral 360 118 Output: Urine 2450 1100 Other: Voiding Method Toilet Toilet Urinal Urinal # Voids 1 - Exam CONSTITUTIONAL: Appears comfortable, cooperative, no acute distress RESPIRATORY: Lungs sounds diminished bilaterally. Respirations even, nonlabored. Currently on room air with oxygen saturation 94% CARDIOVASCULAR: S1, S2 present. Regular rate and rhythm, ventricular paced on telemetry. Palpable peripheral pulses bilaterally. No edema present. No calf pain or tenderness noted GASTROINTESTINAL: Abdomen soft, nontender, nondistended. Active bowel sounds present 4 quadrants. Tolerating diet GENITOURINARY: Continues to void INTEGUMENTARY: Skin is warm and dry, mediastinal incision covered with dry dressing NEUROLOGIC: Cranial nerves II through XII intact MUSKULOSKELETAL: Able to move all extremities, strength equal bilaterally, gait normal PSYCHIATRIC: Alert and oriented to person place and time, appropriate affect, intact judgment and insight - Labs CBC & Chem 7: 07/27/23 08:46 07/27/23 08:46 Labs: Abnormal Lab Results - Last 24 Hours (Table) 07/26/23 07/26/23 07/26/23 Range/Units 11:44 16:36 19:56 Hgb (13.0-17.5) gm/dL RDW (11.5-15.5) % Plt Count (150-450) k/uL Lymphocytes # (1.0-4.8) k/uL POC Glucose (mg/dL) 318 H 262 H 137 H (70-110) mg/dL 07/27/23 07/27/23 Range/Units 06:06 08:46 Hgb 12.8 L (13.0-17.5) gm/dL RDW 16.5 H (11.5-15.5) % Plt Count 592 H (150-450) k/uL Lymphocytes # 0.8 L (1.0-4.8) k/uL POC Glucose (mg/dL) 189 H (70-110) mg/dL Microbiology - Last 24 Hours (Table) 07/24/23 15:57 Gram Stain - Preliminary Pericardial Fluid Body Fluid Culture - Preliminary 07/25/23 15:57 Gram Stain - Preliminary Other - Other Tissue Culture - Preliminary 07/25/23 15:57 Acid Fast Bacilli Smear - Preliminary Other - Other 07/24/23 15:57 Acid Fast Bacilli Smear - Preliminary Pericardial Fluid Assessment and Plan Assessment: Moderate to large circumferential pericardial effusion, status post subxiphoid pericardial window Acute on chronic congestive heart failure with reduced ejection fraction 40-45% History of coronary artery disease with previous myocardial infarction and PCI in 2019 Hypertension Hyperlipidemia Chronotropic incompetence status post dual-chamber pacemaker placement in May 2023 Diabetes mellitus type 2 GERD Osteoarthritis Previous tobacco dependence Occasional marijuana use HPV Throat cancer status post 28 radiation treatments in 2020 Head tremors Anxiety Plan: Continue to follow surgical specimen pericardial biopsy and pericardial fluid cytology Encourage use of incentive spirometry 10 times every hour while awake Pain control per current medication regimen Increase activity as tolerated. Out of bed for all meals. Medical management of other comorbidities per primary care and cardiology Patient stable for discharge from our standpoint. Appt made for incision check next week, DC instructions placed on DC plan
--- NOTE | 2023-07-27 11:12 | P.DS ---
Providers Date of admission: 07/22/23 15:21 Expected date of discharge: 07/27/23 Attending physician: Martha Black DO Consults: 07/22/23 15:21 Consult Physician Routine Consulting Provider: Mayelin Graves Consult Reason/Comments: Dyspnea, pericardial effusion Do you want consulting provider notified?: Yes 07/24/23 09:21 Consult Physician Routine Consulting Provider: Vikram Gallegos Consult Reason/Comments: PERICARDIAL EFFUSION Do you want consulting provider notified?: Already Contacted Primary care physician: Neville Aguiarkary Layton Hospital Course: Discharge Diagnosis: Moderate to large pericardial effusion status post pericardial window Acute systolic CHF exacerbation Hyponatremia, hypervolemia Type 2 diabetes Hospital Course: 67-year-old male with medical history of CAD status post PCI in 2019 followed by dual-chamber permanent pacemaker placement in May 2023 for high degree AV block as well as new left bundle branch block, systolic heart failure with an ejection fraction of 45%, hypertension, hyperlipidemia presented for evaluation of dyspnea on exertion as well as epigastric pain. In the emergency room, patient was afebrile, 119/74, heart rate 104, 94% on room air. CBC demonstrated hemoglobin of 11.8, platelets of 467, lymphopenia 0.6. Sodium is 127, chloride is 97, CO2 of 20, BUN of 32, creatinine is 1.01, glucose is 317, alkaline shirley sphatase is 436, troponin is less than 0.012, BNP is 527. Influenza A, B, RSV, COVID were negative. EKG demonstrates atrial sensed ventricular paced rhythm at a rate of 103. Chest x-ray demonstrated cardiomegaly with mild left-sided pleural effusion, increased pulmonary vascularity. CT angiography shows no evidence of pulmonary embolism, but does demonstrate moderate to large pericardial effusion, cardiomegaly with small right vertebral left pleural effusions. Patient admitted for acute systolic heart failure exacerbation, KALLIE, pericardial effusion. Cardiology and CT surgery consulted. He underwent pericardial window, chest tube was placed, now discontinued. Shortness of breath improved. Renal function improved. Patient being discharged home with close follow-up with CT surgery and cardiology. Patient seen and examined at bedside. Vital signs reviewed and stable. General: Nontoxic, no distress, appears at stated age Derm: Warm, dry Head: Atraumatic, normocephalic, symmetric Eyes: EOMI, no lid lag, anicteric sclera Mouth: No lip lesion, mucus membranes moist Cardiovascular: S1S2 reg, no murmur Lungs: CTA bilateral, no rhonchi, no rales, no accessory muscle use Abdominal: Soft, nontender to palpation, no guarding, no appreciable organomegaly Ext: No gross muscle atrophy, 2+ lower extremity edema, no contractures Neuro: CN II-XI grossly intact, no focal neuro deficits Psych: Alert, oriented, appropriate affect A total of 33 minutes of time were spent preparing this complex discharge summary. Patient was discharged on 07/27/2023 at 10: 30. Patient Condition at Discharge: Stable Plan - Discharge Summary Discharge Rx Participant: Yes New Discharge Prescriptions: New Colchicine [Colcrys] 0.6 mg PO BID #90 each Furosemide [Lasix] 40 mg PO BID #90 tablet Metoprolol Tartrate [Lopressor] 25 mg PO BID #90 tab Continue glipiZIDE [Glucotrol] 10 mg PO DAILY lisinopriL [Zestril] 10 mg PO DAILY metFORMIN HCL ER [Glucophage XR] 1,000 mg PO BID Atorvastatin [Lipitor] 80 mg PO HS [place]-3/Dha/Epa/Fish Oil [Fish Oil 1,000 mg Softgel] 1 cap PO DAILY Omeprazole [PriLOSEC] 20 mg PO DAILY PRN PRN Reason: Gi Upset Testosterone Cypionate [Depo-Testosterone] 200 mg IM Q14D amLODIPine [Norvasc] 10 mg PO DAILY Dulaglutide [Trulicity] 3 mg SQ WE Multivitamins, Thera [Multivitamin (formulary)] 1 tab PO DAILY Aspirin EC [Ecotrin Low Dose] 81 mg PO DAILY Discharge Medication List glipiZIDE [Glucotrol] 10 mg PO DAILY 08/24/17 [History] lisinopriL [Zestril] 10 mg PO DAILY 08/24/17 [History] metFORMIN HCL ER [Glucophage XR] 1,000 mg PO BID 08/24/17 [History] Atorvastatin [Lipitor] 80 mg PO HS 08/30/20 [History] Aspirin EC [Ecotrin Low Dose] 81 mg PO DAILY 06/01/23 [History] Multivitamins, Thera [Multivitamin (formulary)] 1 tab PO DAILY 06/01/23 [History] [place]-3/Dha/Epa/Fish Oil [Fish Oil 1,000 mg Softgel] 1 cap PO DAILY 06/01/23 [History] Omeprazole [PriLOSEC] 20 mg PO DAILY PRN 06/01/23 [History] Testosterone Cypionate [Depo-Testosterone] 200 mg IM Q14D 06/01/23 [History] Dulaglutide [Trulicity] 3 mg SQ WE 07/22/23 [History] amLODIPine [Norvasc] 10 mg PO DAILY 07/22/23 [History] Colchicine [Colcrys] 0.6 mg PO BID #90 each 07/27/23 [Rx] Furosemide [Lasix] 40 mg PO BID #90 tablet 07/27/23 [Rx] Metoprolol Tartrate [Lopressor] 25 mg PO BID #90 tab 07/27/23 [Rx] Follow up Appointment(s)/Referral(s): Maggie Yates NPC [Nurse Practitioner] - 08/03/23 10:30 am Huseyin Amato MD [Primary Care Provider] - 1-2 days Santhosh Herron MD [STAFF PHYSICIAN] - 2 Weeks Patient Instructions/Handouts: Heart Failure (DC), Pericardial Effusion (DC) Activity/Diet/Wound Care/Special Instructions: DISCHARGE INSTRUCTIONS: 1. No driving for 1 weeks 2. No lifting, pushing, or pulling more than 10 pounds for 2 weeks 3. Continue pain control per as needed orders 4. Continue with incentive spirometry 5. Leave chest tube dressing for 24 hours. After that, remove all dressings and shower daily. 6. Routine incision care. No powders, lotions, ointments on incisions. 7. Please call surgeon/[employer] for temp greater than 101 F or purulent drainage from incisions. Discharge Disposition: HOME SELF-CARE
[2023-07-27 11:24] VITALS: BP 114/64; PULSE 79; TEMP 97.7
[2023-07-27 11:42] LABS: Glucose,Whole Blood 310 mg/dL (70-110)
--- NOTE | 2023-07-27 13:01 | P.PN ---
Subjective Progress Note Date: 07/27/23 HISTORY OF PRESENTING ILLNESS 57-year-old with PMH of CAD s/p PCI in 2019, dual-chamber PPM in May 2023 for chronotropic incompetence during stress test. His last echo from May 2023 showed an EF of 40 to 45% This time patient presented to the hospital because of worsening shortness of breath orthopnea and paroxysmal nocturnal dyspnea symptoms. He has also been complaining of substernal chest heaviness which is radiating to his scapula and mid back and right shoulder. This pain is mostly when he changes position. It is not related to any diaphoresis. Is also been complaining of some nausea and vomiting and has had poor oral intake throughout the day today. On admission blood pressure 90/70, heart rate 104, paced rhythm, 94% room air Hemoglobin 11.8, platelets 400, sodium 127, BUN 23, creatinine 1.01, glucose 317, ALP 436, troponin 0.01, BNP 500 Viral panel was negative ECG showed AV paced rhythm heart rate 103 Chest x-ray showed cardiomegaly and small pericardial effusion and pleural effusion CTA chest did not show any evidence of pulmonary embolism. It did show a large pericardial effusions, moderate to small right pleural effusion 07/23/2023 Patient seen and examined resting comfortably in bed in no acute distress. Yesterday after receiving a [place] he had an episode of feeling dizzy and lightheaded. Telemetry tracings unremarkable. Blood pressure 127/81 heart rate 89 afebrile maintaining oxygen saturation on nasal cannula. Laboratory data reviewed, hemoglobin 10.9, platelets 474, sodium 126, potassium 5.7, creatinine 1.52, CRP 6.6, sedimentation rate pending. 07/24 Yesterday Lasix was decreased to twice daily, 40 mg IV. He also received a dose of Kayexalate for potassium of 5.7. Repeat blood work today reveals sodium 128, potassium 5.2, BUN 47 creatinine 1.4. Heart rate is 80-94. Patient states that he has difficulty walking to the bathroom with shortness of breath. He denies having any chest pain, no tachycardia. He has trace lower extremity edema. 07/25 Patient is s/p pericardial window performed yesterday. He feels that he may have less shortness of breath today. Chest tubes in place. Blood pressure 124/65, heart rate is in the 80s to 90s, pulse ox 94% on room air. Repeat blood work reveals WBC 6.7, hemoglobin 9.4, platelet count 491. Sodium 128, potassium 4.8, BUN 35 and creatinine 1.08. Chest x-ray reveals catheter for pericardial window. Small left and trace right pleural effusions with adjacent atelectasis and or consolidation specially in the left base. Appears slightly increased. Patient states that he is using his incentive spirometry averaging 1500. He has been maintained on Lasix 40 mg IV twice daily. Weight appears to be down 1 kg. He has a negative fluid balance. 07/26 Patient is expecting his chest tube to be removed today and possible discharge home. He is feeling better today and lung sounds are better. He has been maintained on colchicine. Heart rate is in the 70s, blood pressure 111/73, pul se ox 93% on room air. Telemetry is a ventricularly paced rhythm. Repeat blood work reveals sodium of 130, potassium 4.5, BUN 23 creatinine 0.84. Patient has elevated liver function test with AST 65, ALT 64, alkaline phosphatase 442. Chest x-ray revealed similar borderline heart size. Ongoing small left pleural effusion with prominent adjacent atelectasis and or consolidation of the left base. Pericardial catheter in place 07/27 Patient has had his chest tube removed and he is anticipating discharge home today. Will plan to obtain outpatient echocardiogram and follow-up. Blood pressure 114/64, heart rate 82, pulse ox 94% on room air. PHYSICAL EXAMINATION Vital signs reviewed. Head: Normocephalic. Eyes: Sclerae nonicteric. Neck: Brisk carotid upstroke, has elevated jugular venous distention. Lungs: Clear to auscultation. Heart: Regular rate and rhythm, S1-S2, no S3, no murmur or rub. Abdomen: Soft nontender, positive bowel sounds. Extremities: Trace edema bilateral lower extremity. Neuro: Alert, oritented, no focal deficits. Detailed neuro exam was not performed. 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 Coelho History of CAD s/p PCI to mid distal LCx 2019 Hypertension Type 2 diabetes Dyslipidemia PLAN Continue current cardiac medications Continue colchicine 0.6 mg BID for 1 week and then decrease frequency to daily for 4 weeks. Patient is cleared for discharge later today after chest tube is removed. Patient will follow-up in the office in 1 to 2 weeks. Follow-up echocardiogram will be done at that time. Nurse Practitioner note has been reviewed, I agree with a documented findings and plan of care. Patient was seen and examined. Objective - Vital Signs Vital signs: Vital Signs Temp 97.9 F 07/27/23 04:00 Pulse 77 07/27/23 04:00 Resp 17 07/27/23 04:00 BP 112/75 07/27/23 04:00 Pulse Ox 94 L 07/27/23 04:00 FiO2 Intake & Output 07/26/23 07/27/23 07/27/23 18:59 06:59 18:59 Intake Total 360 20 118 Output Total 2450 1100 Balance -2089 118 Weight 88 kg 86 kg Intake: IV 20 Invasive Line 1 20 Oral 360 118 Output: Urine 2450 1100 Other: Voiding Method Toilet Toilet Urinal Urinal # Voids 1 - Labs CBC & Chem 7: 07/27/23 08:46 07/27/23 08:46 Labs: Abnormal Lab Results - Last 24 Hours (Table) 07/26/23 07/26/23 07/26/23 Range/Units 11:44 16:36 19:56 Hgb (13.0-17.5) gm/dL RDW (11.5-15.5) % Plt Count (150-450) k/uL Lymphocytes # (1.0-4.8) k/uL Sodium (137-145) mmol/L Chloride (98-107) mmol/L Glucose (74-99) mg/dL POC Glucose (mg/dL) 318 H 262 H 137 H (70-110) mg/dL Calcium (8.4-10.2) mg/dL 07/27/23 07/27/23 07/27/23 Range/Units 06:06 08:46 08:46 Hgb 12.8 L (13.0-17.5) gm/dL RDW 16.5 H (11.5-15.5) % Plt Count 592 H (150-450) k/uL Lymphocytes # 0.8 L (1.0-4.8) k/uL Sodium 131 L (137-145) mmol/L Chloride 94 L (98-107) mmol/L Glucose 268 H (74-99) mg/dL POC Glucose (mg/dL) 189 H (70-110) mg/dL Calcium 8.2 L (8.4-10.2) mg/dL Microbiology - Last 24 Hours (Table) 07/24/23 15:57 Gram Stain - Preliminary Pericardial Fluid Body Fluid Culture - Preliminary 07/25/23 15:57 Gram Stain - Preliminary Other - Other Tissue Culture - Preliminary 07/25/23 15:57 Acid Fast Bacilli Smear - Preliminary Other - Other 07/24/23 15:57 Acid Fast Bacilli Smear - Preliminary Pericardial Fluid
== END 2023-07-27 12:15 | disposition home or self-care (01) | DRG 270 ==
LOC: EC 12:29 → 3SCARD 15:21 → 2SICU 07-24 16:36 → 3SCARD 07-24 16:58
PROVIDERS: ADMIT Internal Medicine; ATTEND Internal Medicine
PROC: 0W9D00Z Drainage of Pericardial Cavity with Drainage Device, Open Approach (ICD-10-PCS; principal; 2023-07-24 13:30)
DX: I31.39 Other pericardial effusion (noninflammatory) (principal); I50.23 Acute on chronic systolic (congestive) heart failure; N17.9 Acute kidney failure, unspecified; E87.1 Hypo-osmolality and hyponatremia; M54.2 Cervicalgia; E78.5 Hyperlipidemia, unspecified; F41.9 Anxiety disorder, unspecified; I11.0 Hypertensive heart disease with heart failure; M19.90 Unspecified osteoarthritis, unspecified site; E11.9 Type 2 diabetes mellitus without complications; D64.9 Anemia, unspecified; D72.810 Lymphocytopenia; E87.70 Fluid overload, unspecified; I25.2 Old myocardial infarction; I44.7 Left bundle-branch block, unspecified; I25.10 Atherosclerotic heart disease of native coronary artery without angina pectoris; K21.9 Gastro-esophageal reflux disease without esophagitis; Z98.61 Coronary angioplasty status; Z95.0 Presence of cardiac pacemaker; Z87.891 Personal history of nicotine dependence; Z85.819 Personal history of malignant neoplasm of unspecified site of lip, oral cavity, and pharynx; Z79.82 Long term (current) use of aspirin; Z79.84 Long term (current) use of oral hypoglycemic drugs; Z79.899 Other long term (current) drug therapy; Z82.49 Family history of ischemic heart disease and other diseases of the circulatory system; A63.0 Anogenital (venereal) warts
CPT/HCPCS: 36415; 71045; 71046; 71275; 80048; 80053; 83605; 83735; 83880; 84484; 85025; 85610; 85652; 85730; 86140; 86850; 86900; 86901; 87070; 87075; 87102; 87116; 87205; 87206; 87636; 88108; 88305; 93005; 93306; 93308; 94760; 99285